=== PATIENT | female | born 2000 | race Caucasian/White ===

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

== ENCOUNTER 2019-10-10 08:00 | Inpatient (IN) | payer OTHER ==
[2019-10-10 08:06] LABS: Glucose,Whole Blood >600 mg/dL (75-99)
[2019-10-10] MEDS ORDERED: SODIUM CHLORIDE 0.9% 1,000 ML IV STA (08:17)
[2019-10-10] MEDS ORDERED: SODIUM CHLORIDE 0.9% 2,000 ML IV STA (08:17)
--- NOTE | 2019-10-10 08:20 | ED ---
General Adult HPI <Dakotah Quevedo - Last Filed: 10/10/19 10:11> - General Source: patient, family, RN notes reviewed, old records reviewed Mode of arrival: ambulatory Limitations: no limitations <Leonor Wren - Last Filed: 10/10/19 10:24> - General Chief complaint: Recheck/Abnormal Lab/Rx Stated complaint: possible DKA Time Seen by Provider: 10/10/19 08:09 - History of Present Illness Initial comments: Patient is a 18-year-old female with a history of diabetes who presents emergency department today for concerns for possible DKA. Patient reports that since complaining of some nausea and dry mouth this morning and has had episodes of dry heaves. Patient's meter was reading high at home. She did give herself 15 units of insulin this morning. Patient states that she is never been hospitalized for DKA. She's been a diabetic since 2006. Patient sees an seamer elastic band and [facility]. Patient states that she has not been feeling significantly ill and denies any significant complaints of pain at this time. (Leonor Wren) - Related Data Home Medications Medication Instructions Recorded Confirmed ARIPiprazole [Abilify] 5 mg PO DAILY 10/10/19 10/10/19 FLUoxetine HCL [PROzac] 40 mg PO DAILY 10/10/19 10/10/19 INSULIN ASPART (NovoLOG) [NovoLOG See Protocol SQ ACHS 10/10/19 10/10/19 (formulary)] Insulin Glargine,Hum.rec.anlog 33 unit SQ QAM 10/10/19 10/10/19 [Basaglar Kwikpen U-100] Allergies Allergy/AdvReac Type Severity Reaction Status Date / Time No Known Allergies Allergy Verified 10/10/19 09:07 Review of Systems ROS Other: All systems not noted in ROS Statement are negative. <Dakotah Quevedo - Last Filed: 10/10/19 10:11> ROS Other: All systems not noted in ROS Statement are negative. <Leonor Wren - Last Filed: 10/10/19 10:24> ROS Statement: Those systems with pertinent positive or pertinent negative responses have been documented in the HPI. Past Medical History Past Medical History: Diabetes Mellitus History of Any Multi-Drug Resistant Organisms: None Reported Past Surgical History: Adenoidectomy, Tonsillectomy Past Psychological History: Anxiety, Depression Smoking Status: Current every day smoker, Vaper Past Alcohol Use History: Occasional Past Drug Use History: Marijuana <SienaLeonor - Last Filed: 10/10/19 10:24> General Exam Limitations: no limitations General appearance: alert, in no apparent distress Head exam: Present: atraumatic, normocephalic, normal inspection Eye exam: Present: normal appearance, PERRL, EOMI. Absent: scleral icterus, conjunctival injection, periorbital swelling ENT exam: Present: normal exam, mucous membranes moist, other (dry mouth, acetone on breath) Neck exam: Present: normal inspection. Absent: tenderness, meningismus, lymphadenopathy Respiratory exam: Present: normal lung sounds bilaterally. Absent: respiratory distress, wheezes, rales, rhonchi, stridor Cardiovascular Exam: Present: regular rate, normal rhythm, normal heart sounds. Absent: systolic murmur, diastolic murmur, rubs, gallop, clicks GI/Abdominal exam: Present: soft, normal bowel sounds. Absent: distended, tenderness, guarding, rebound, rigid Extremities exam: Present: normal inspection, full ROM, normal capillary refill. Absent: tenderness, pedal edema, joint swelling, calf tenderness Back exam: Present: normal inspection Neurological exam: Present: alert, oriented X3, CN II-XII intact Psychiatric exam: Present: normal affect, normal mood Skin exam: Present: warm, dry, intact, normal color. Absent: rash <SienaLeonor - Last Filed: 10/10/19 10:24> - General Exam Comments Initial Comments: Dehydrated 18-year-old female. (SienaLeonor) Course Vital Signs 10/10/19 08:01 Temperature 98.2 F Pulse Rate 130 H Respiratory 18 Rate Blood Pressure 137/89 O2 Sat by Pulse 99 Oximetry EKG Findings - EKG Comments: EKG Findings:: EKG performed at 8:51 AM shows a sinus rhythm normal EKG. Ventricular rate of 86 bpm.. Animals 15 ms. QS duration 76 most seconds. QT QTc is 360/4:30 milliseconds. <Leonor Wren - Last Filed: 10/10/19 10:24> Medical Decision Making - Lab Data Result diagrams: 10/10/19 08:22 10/10/19 08:22 <Dakotah Quevedo - Last Filed: 10/10/19 10:11> - Lab Data Result diagrams: 10/10/19 08:22 10/10/19 08:22 <Leonor Wren - Last Filed: 10/10/19 10:24> - Medical Decision Making I agree with PAs findings. This includes diagnostic interpretation and treatment plan. Patient reevaluated and resting comfortably in bed. Case was discussed in detail with Dr. finney, who will admit covering for hospital call. She does request ICU care. Case also discussed with Dr. Armando Haile who will consult for critical care. Patient is updated. (Daktoah Quevedo) 18-year-old female with history of diabetes presents emergency room today for concerns for DKA. She had some episodes of dry heaving her blood sugars greater than 600 today. She denies any other significant complaints. Patient is given a 2 L bolus and her glucometer read high on triage. She is acetone on her breath. No significant abdominal tenderness or other complaints. Patient's labs do show signs of DKA with positive acetone. CO2 of 11. Anion gap of 29. Her blood sugar was 638. She is given insulin bolus and insulin drip. Patient case was discussed with Dr. Quevedo and discussed the case with Dr. nicolasa mariscal. Patient will be admitted to the ICU for her glucose management. (Leonor Wren) - Lab Data Lab Results 10/10/19 10/10/19 10/10/19 Range/Units 08:05 08:22 08:22 WBC 16.3 H (4.0-11.0) k/uL RBC 5.31 (3.80-5.40) m/uL Hgb 16.4 H (11.4-16.0) gm/dL Hct 51.4 H (34.0-46.0) % MCV 96.7 (80.0-100.0) fL MCH 30.8 (25.0-35.0) pg MCHC 31.9 (31.0-37.0) g/dL RDW 12.7 (11.5-15.5) % Plt Count 370 (150-450) k/uL Neutrophils % 67 % Lymphocytes % 23 % Monocytes % 5 % Eosinophils % 1 % Basophils % 1 % Neutrophils # 11.0 H (1.3-7.7) k/uL Lymphocytes # 3.8 (1.0-4.8) k/uL Monocytes # 0.9 (0-1.0) k/uL Eosinophils # 0.1 (0-0.7) k/uL Basophils # 0.1 (0-0.2) k/uL PT 9.5 (9.0-12.0) sec INR 0.9 (<1.2) APTT 20.2 L (22.0-30.0) sec VBG pH (7.31-7.41) VBG pCO2 (37-51) mmHg VBG HCO3 (24-28) mmol/L Sodium (137-145) mmol/L Potassium (3.5-5.1) mmol/L Chloride (98-107) mmol/L Carbon Dioxide (22-30) mmol/L Anion Gap mmol/L BUN (7-17) mg/dL Creatinine (0.52-1.04) mg/dL Est GFR (CKD-EPI)AfAm (>60 ml/min/1.73 sqM) Est GFR (CKD-EPI)NonAf (>60 ml/min/1.73 sqM) Glucose (74-99) mg/dL POC Glucose (mg/dL) >600 H (75-99) mg/dL POC Glu Clinical Dermatologist ID Duncan Weir Plasma Lactic Acid Candido (0.7-2.0) mmol/L Calcium (8.4-10.2) mg/dL Total Bilirubin (0.2-1.3) mg/dL AST (14-36) U/L ALT (4-34) U/L Alkaline Phosphatase (38-126) U/L Total Protein (6.3-8.2) g/dL Albumin (3.5-5.0) g/dL Amylase (30-110) U/L Lipase (23-300) U/L Urine Color Urine Appearance (Clear) Urine pH (5.0-8.0) Ur Specific Williams (1.001-1.035) Urine Protein (Negative) Urine Glucose (UA) (Negative) Urine Ketones (Negative) Urine Blood (Negative) Urine Nitrite (Negative) Urine Bilirubin (Negative) Urine Urobilinogen (<2.0) mg/dL Ur Leukocyte Esterase (Negative) Urine WBC (0-5) /hpf Ur Squamous Epith Cells (0-4) /hpf Urine Bacteria (None) /hpf Urine Mucus (None) /hpf Urine HCG, Qual (Not Detectd) Acetone, Qual (Negative) 10/10/19 10/10/19 10/10/19 Range/Units 08:22 08:22 08:22 WBC (4.0-11.0) k/uL RBC (3.80-5.40) m/uL Hgb (11.4-16.0) gm/dL Hct (34.0-46.0) % MCV (80.0-100.0) fL MCH (25.0-35.0) pg MCHC (31.0-37.0) g/dL RDW (11.5-15.5) % Plt Count (150-450) k/uL Neutrophils % % Lymphocytes % % Monocytes % % Eosinophils % % Basophils % % Neutrophils # (1.3-7.7) k/uL Lymphocytes # (1.0-4.8) k/uL Monocytes # (0-1.0) k/uL Eosinophils # (0-0.7) k/uL Basophils # (0-0.2) k/uL PT (9.0-12.0) sec INR (<1.2) APTT (22.0-30.0) sec VBG pH (7.31-7.41) VBG pCO2 (37-51) mmHg VBG HCO3 (24-28) mmol/L Sodium 133 L (137-145) mmol/L Potassium 5.1 (3.5-5.1) mmol/L Chloride 93 L (98-107) mmol/L Carbon Dioxide 11 L (22-30) mmol/L Anion Gap 29 mmol/L BUN 17 (7-17) mg/dL Creatinine 0.70 (0.52-1.04) mg/dL Est GFR (CKD-EPI)AfAm >90 (>60 ml/min/1.73 sqM) Est GFR (CKD-EPI)NonAf >90 (>60 ml/min/1.73 sqM) Glucose 632 H* (74-99) mg/dL POC Glucose (mg/dL) (75-99) mg/dL POC Glu Clinical Dermatologist ID Plasma Lactic Acid Candido (0.7-2.0) mmol/L Calcium 10.6 H (8.4-10.2) mg/dL Total Bilirubin 1.0 (0.2-1.3) mg/dL AST 28 (14-36) U/L ALT 16 (4-34) U/L Alkaline Phosphatase 208 H (38-126) U/L Total Protein 8.0 (6.3-8.2) g/dL Albumin 5.1 H (3.5-5.0) g/dL Amylase 87 (30-110) U/L Lipase 367 H (23-300) U/L Urine Color Colorless Urine Appearance Clear (Clear) Urine pH 5.0 (5.0-8.0) Ur Specific Williams 1.032 (1.001-1.035) Urine Protein Negative (Negative) Urine Glucose (UA) 4+ H (Negative) Urine Ketones 4+ H (Negative) Urine Blood Negative (Negative) Urine Nitrite Negative (Negative) Urine Bilirubin Negative (Negative) Urine Urobilinogen <2.0 (<2.0) mg/dL Ur Leukocyte Esterase Trace H (Negative) Urine WBC 2 (0-5) /hpf Ur Squamous Epith Cells 2 (0-4) /hpf Urine Bacteria Occasional H (None) /hpf Urine Mucus Rare H (None) /hpf Urine HCG, Qual Not Detected (Not Detectd) Acetone, Qual Positive (Negative) 10/10/19 10/10/19 10/10/19 Range/Units 08:22 08:41 09:36 WBC (4.0-11.0) k/uL RBC (3.80-5.40) m/uL Hgb (11.4-16.0) gm/dL Hct (34.0-46.0) % MCV (80.0-100.0) fL MCH (25.0-35.0) pg MCHC (31.0-37.0) g/dL RDW (11.5-15.5) % Plt Count (150-450) k/uL Neutrophils % % Lymphocytes % % Monocytes % % Eosinophils % % Basophils % % Neutrophils # (1.3-7.7) k/uL Lymphocytes # (1.0-4.8) k/uL Monocytes # (0-1.0) k/uL Eosinophils # (0-0.7) k/uL Basophils # (0-0.2) k/uL PT (9.0-12.0) sec INR (<1.2) APTT (22.0-30.0) sec VBG pH 7.33 (7.31-7.41) VBG pCO2 25 L (37-51) mmHg VBG HCO3 13 L (24-28) mmol/L Sodium (137-145) mmol/L Potassium (3.5-5.1) mmol/L Chloride (98-107) mmol/L Carbon Dioxide (22-30) mmol/L Anion Gap mmol/L BUN (7-17) mg/dL Creatinine (0.52-1.04) mg/dL Est GFR (CKD-EPI)AfAm (>60 ml/min/1.73 sqM) Est GFR (CKD-EPI)NonAf (>60 ml/min/1.73 sqM) Glucose (74-99) mg/dL POC Glucose (mg/dL) 412 H (75-99) mg/dL POC Glu Clinical Dermatologist MATHIEU HennaDuarte Plasma Lactic Acid Candido 1.6 (0.7-2.0) mmol/L Calcium (8.4-10.2) mg/dL Total Bilirubin (0.2-1.3) mg/dL AST (14-36) U/L ALT (4-34) U/L Alkaline Phosphatase (38-126) U/L Total Protein (6.3-8.2) g/dL Albumin (3.5-5.0) g/dL Amylase (30-110) U/L Lipase (23-300) U/L Urine Color Urine Appearance (Clear) Urine pH (5.0-8.0) Ur Specific Williams (1.001-1.035) Urine Protein (Negative) Urine Glucose (UA) (Negative) Urine Ketones (Negative) Urine Blood (Negative) Urine Nitrite (Negative) Urine Bilirubin (Negative) Urine Urobilinogen (<2.0) mg/dL Ur Leukocyte Esterase (Negative) Urine WBC (0-5) /hpf Ur Squamous Epith Cells (0-4) /hpf Urine Bacteria (None) /hpf Urine Mucus (None) /hpf Urine HCG, Qual (Not Detectd) Acetone, Qual (Negative) Critical Care Time Critical Care Time: Yes Total Critical Care Time: 35 <Leonor Wren - Last Filed: 10/10/19 10:24> Disposition <Dakotah Quevedo - Last Filed: 10/10/19 10:11> Is patient prescribed a controlled substance at d/c from ED?: No Time of Disposition: 10:24 <Leonor Wren - Last Filed: 10/10/19 10:24> Clinical Impression: DKA (diabetic ketoacidoses) Disposition: ADMITTED IP TO THIS HOSP Condition: Stable Referrals: Cyndee Hernandez MD [Primary Care Provider] - 1-2 days
[2019-10-10 08:32] LABS: Basophils # (A) 0.1 k/uL (0-0.2); Basophils % (A) 1 %; Eosinophils # (A) 0.1 k/uL (0-0.7); Eosinophils % (A) 1 %; HCT 51.4 % (34.0-46.0); HGB 16.4 gm/dL (11.4-16.0); Lymphocytes # (A) 3.8 k/uL (1.0-4.8); Lymphocytes % (A) 23 %; MCH 30.8 pg (25.0-35.0); MCHC 31.9 g/dL (31.0-37.0); MCV 96.7 fL (80.0-100.0); Mean Platelet Volume 7.7; Monocytes # (A) 0.9 k/uL (0-1.0); Monocytes % (A) 5 %; Neutrophils % (A) 67 %; Platelet Count 370 k/uL (150-450); RBC 5.31 m/uL (3.80-5.40); RDW 12.7 % (11.5-15.5); WBC 16.3 k/uL (4.0-11.0)
[2019-10-10 08:41] LABS: Appearance,Urine Clear (Clear); Bacteria,Urine Occasional /hpf; Bilirubin,Urine Negative (Negative); Blood,Urine Negative (Negative); Color,Urine Colorless; Glucose,Urine (UA) 4+ (Negative); Leukocyte Esterase,Urine Trace (Negative); Mucus,Urine Rare /hpf; Nitrite,Urine Negative (Negative); Protein,Urine Negative (Negative); Specific Gravity,Urine 1.032 (1.001-1.035); Squamous Epithelial Cell,Urine 2 /hpf (0-4); Urobilinogen,Urine <2.0 mg/dL (<2.0); WBC,Urine 2 /hpf (0-5)
[2019-10-10 08:52] LABS: VBG PH 7.33 (7.31-7.41)
[2019-10-10 08:56] LABS: ALT 16 U/L (4-34); AST 28 U/L (14-36); African American GFR (CKD) >90 (>60 ml/min/1.73 sqM); Albumin 5.1 g/dL (3.5-5.0); Alkaline Phosphatase 208 U/L (38-126); Amylase 87 U/L (30-110); Anion Gap 29 mmol/L; Blood Urea Nitrogen 17 mg/dL (7-17); Calcium 10.6 mg/dL (8.4-10.2); Carbon Dioxide 11 mmol/L (22-30); Chloride 93 mmol/L (98-107); INR 0.9 (<1.2); Non-African American GFR(CKD) >90 (>60 ml/min/1.73 sqM); Partial Thromboplastin Time 20.2 sec (22.0-30.0); Prothrombin Time 9.5 sec (9.0-12.0); Sodium 133 mmol/L (137-145)
[2019-10-10 09:13] LABS: Glucose 632 mg/dL (74-99); Potassium 5.1 mmol/L (3.5-5.1)
[2019-10-10] MEDS ORDERED: INSULIN REGULAR BOLUS (FROM DRIP BAG) IV ONE (09:20)
[2019-10-10] MEDS ORDERED: INSULIN REGULAR 100 UNIT in SODIUM CHLORIDE 0.9% 100 ML IV SCH (09:30)
[2019-10-10 09:37] LABS: Glucose,Whole Blood 412 mg/dL (75-99)
[2019-10-10 09:43] LABS: Ketones,Urine 4+ (Negative)
[2019-10-10] MEDS: SODIUM CHLORIDE 0.9% 1,000 ML IV SCH ×3 (09:46→18:05)
[2019-10-10 10:45] LABS: Glucose,Whole Blood 252 mg/dL (75-99)
[2019-10-10] MEDS: D5-0.45% NACL WITH KCL 20MEQ/L 1,000 ML IV SCH ×2 (11:00→17:25)
[2019-10-10 11:20] LABS: Glucose,Whole Blood 279 mg/dL (75-99)
[2019-10-10 12:12] LABS: Glucose,Whole Blood 237 mg/dL (75-99)
[2019-10-10 13:00] LABS: Glucose,Whole Blood 208 mg/dL (75-99)
[2019-10-10] MEDS ORDERED: NICOTINE POLACRILEX 2 MG GUM BUCCAL PRN (13:36)
[2019-10-10] MEDS ORDERED: ACETAMINOPHEN TAB 325 MG TAB PO PRN (13:36)
[2019-10-10] MEDS ORDERED: KETOROLAC 15 MG/ML 1 ML VIAL IVP PRN (13:36)
[2019-10-10] MEDS ORDERED: MELATONIN 3 MG TABLET PO PRN (13:36)
[2019-10-10] MEDS ORDERED: NALOXONE 0.4 MG/ML 1 ML VIAL IV PRN (13:36)
[2019-10-10] MEDS ORDERED: ONDANSETRON 4 MG/2 ML VIAL IVP PRN (13:36)
--- NOTE | 2019-10-10 13:41 | P.HPIM ---
History of Present Illness H&P Date: 10/10/19 Chief Complaint: high blood sugar Patient is a 18-year-old female with type 1 diabetes diagnosed at age 5 currently on long acting and carb counting use short acting insulin and tobacco abuse who presented to the hospital secondary to elevated blood sugars and nausea. On arrival to the ER she was found be tachycardic with heart rate of 130. Initial laboratory analysis showed a white blood cell count of 16.3, VBG with pH of 7.33, sodium 133, chloride 93, carbon dioxide 11, glucose 632, calcium 10.6, alkaline phosphatase 208, albumin 5.1, lipase 367, urinalysis showed 4+ glucose and 4+ ketones. Acetone was positive. She is given 2 L of IV fluid in the emergency department. She is given a 6 unit IV insulin bolus and started on insulin drip. Arrangements are made for admission to the ICU. Patient seen and examined at bedside. Her father is present. She reports that she is unsure why her blood sugars are so high. She initially states she might have missed her long-acting insulin last night, but then states she is sure she took this. Apparently she was on a pump in the past but ran out of pump supplies quite some time ago and is now doing basal Klar and carb counting with NovoLog. She reports that her last hemoglobin A1c was about 10 and this was done 1-2 months ago. She states that her daily sugars have been in the high 200s. She states that this morning she woke up just not feeling well. She felt nauseous and some chest heaviness which is typical for her when her sugars are high. She also felt very weak and fatigued. She went to use her meter and it wasn't working. She contacted her father who is an ICU nurse instructed her to go to the hospital. She reports a 20 pound weight loss over the last several months without trying. She denies any previous hospitalizations for DKA. Her and her father both report that she has been drinking excessive amounts for longer than one day. They also report that she has had increased urination. Her father states that she was drinking lots of juice yesterday. We discussed that juices not a good liquid intake when her sugars are already running high as it is typically high in sugar. She denies any recent illnesses such as cough, cold, fever, flu, diarrhea, or abdominal pain. She states she was in her normal state of health until yesterday. Dr. Thompson out of [place] on [address] Hernandez Review of Systems Pertinent positives and negatives as discussed in HPI, a complete review of systems was performed and all other systems are negative. Past Medical History Past Medical History: Diabetes Mellitus Additional Past Medical History / Comment(s): IDDM type 1/normally pt uses insulin pump but ran out of supplies-supplies will be arriving to her soon-for now pt is using subq insulin injections, past HPV History of Any Multi-Drug Resistant Organisms: None Reported Past Surgical History: Adenoidectomy, Tonsillectomy Past Anesthesia/Blood Transfusion Reactions: No Reported Reaction Smoking Status: Current every day smoker (<1/4 PPD), Vaper Past Alcohol Use History: Occasional Past Drug Use History: Marijuana - Past Family History Mother Additional Family Medical History / Comment(s): migraines Father Family Medical History: Hypertension Additional Family Medical History / Comment(s): Father is healthy Medications and Allergies Home Medications Medication Instructions Recorded Confirmed Type ARIPiprazole [Abilify] 5 mg PO DAILY 10/10/19 10/10/19 History FLUoxetine HCL [PROzac] 40 mg PO DAILY 10/10/19 10/10/19 History INSULIN ASPART (NovoLOG) [NovoLOG See Protocol SQ ACHS 10/10/19 10/10/19 History (formulary)] Insulin Glargine,Hum.rec.anlog 33 unit SQ QAM 10/10/19 10/10/19 History [Basaglar Kwikpen U-100] Allergies Allergy/AdvReac Type Severity Reaction Status Date / Time No Known Allergies Allergy Verified 10/10/19 09:07 Physical Exam Osteopathic Statement: *. No significant issues noted on an osteopathic structural exam other than those noted in the History and Physical/Consult. Vitals: Vital Signs Temp Pulse Resp BP Pulse Ox 10/10/19 11:00 98.3 F 96 18 112/73 98 10/10/19 10:21 102 H 19 131/81 100 10/10/19 10:18 90 L 10/10/19 08:01 98.2 F 130 H 18 137/89 99 Intake and Output 10/09/19 10/10/19 10/10/19 22:59 06:59 14:59 Intake Total 160.009 Balance 160.009 Intake: Intake, IV Titration 160.009 Amount D5-0.45% NaCl with KCl 150 20Meq/l 1,000 ml @ 150 mls/hr IV .[id number] [facility] Rx# :[id number] Insulin Regular 100 unit 10.009 In Sodium Chloride 0.9% 100 ml @ 0.1 UNITS/KG/HR 6.066 mls/hr IV .[id number] [facility] Rx#:[id number] Other: Weight 60.056 kg General: Ill-appearing, moderate distress, appears at stated age Derm: warm, dry, multiple tattoos, nasal piercing, multiple ear piercings Head: atraumatic, normocephalic, symmetric Eyes: EOMI, no lid lag, anicteric sclera, pupils equal round reactive to light ENT: Nose and ears atraumatic, no thrush, no pharyngeal erythema Neck: No thyromegaly, no cervical lymphadenopathy, trachea midline, supple Mouth: no lip lesion, mucus membranes dry Cardiovascular: S1S2 tachycardic, no murmur, positive posterior tibial pulse bilateral, no edema, capillary refill less than 2 seconds Lungs: clear to ascultation bilateral, no ronchi, no rales, no wheeze, no a ccessory muscle use Abdominal: soft, nontender to palpation, no guarding, no appreciable organomega ly, normal bowel sounds Ext: no gross muscle atrophy, muscle strength muscle strength 5 out of 5 in all 4 extremities, no contractures Neuro: CN II-XI grossly intact, light touch intact all 4 extremities, finger to nose within normal limits, Psych: Alert, oriented, appropriate affect Results CBC & Chem 7: 10/10/19 08:22 10/10/19 08:22 Labs: Abnormal Lab Results - Last 24 Hours (Table) 10/10/19 10/10/19 10/10/19 Range/Units 08:05 08:22 08:22 WBC 16.3 H (4.0-11.0) k/uL Hgb 16.4 H (11.4-16.0) gm/dL Hct 51.4 H (34.0-46.0) % Neutrophils # 11.0 H (1.3-7.7) k/uL APTT 20.2 L (22.0-30.0) sec VBG pCO2 (37-51) mmHg VBG HCO3 (24-28) mmol/L Sodium (137-145) mmol/L Chloride (98-107) mmol/L Carbon Dioxide (22-30) mmol/L Glucose (74-99) mg/dL POC Glucose (mg/dL) >600 H (75-99) mg/dL Calcium (8.4-10.2) mg/dL Alkaline Phosphatase (38-126) U/L Albumin (3.5-5.0) g/dL Lipase (23-300) U/L Urine Glucose (UA) (Negative) Urine Ketones (Negative) Ur Leukocyte Esterase (Negative) Urine Bacteria (None) /hpf Urine Mucus (None) /hpf 10/10/19 10/10/19 10/10/19 Range/Units 08:22 08:22 08:41 WBC (4.0-11.0) k/uL Hgb (11.4-16.0) gm/dL Hct (34.0-46.0) % Neutrophils # (1.3-7.7) k/uL APTT (22.0-30.0) sec VBG pCO2 25 L (37-51) mmHg VBG HCO3 13 L (24-28) mmol/L Sodium 133 L (137-145) mmol/L Chloride 93 L (98-107) mmol/L Carbon Dioxide 11 L (22-30) mmol/L Glucose 632 H* (74-99) mg/dL POC Glucose (mg/dL) (75-99) mg/dL Calcium 10.6 H (8.4-10.2) mg/dL Alkaline Phosphatase 208 H (38-126) U/L Albumin 5.1 H (3.5-5.0) g/dL Lipase 367 H (23-300) U/L Urine Glucose (UA) 4+ H (Negative) Urine Ketones 4+ H (Negative) Ur Leukocyte Esterase Trace H (Negative) Urine Bacteria Occasional H (None) /hpf Urine Mucus Rare H (None) /hpf 10/10/19 10/10/19 10/10/19 Range/Units 09:36 10:43 11:18 WBC (4.0-11.0) k/uL Hgb (11.4-16.0) gm/dL Hct (34.0-46.0) % Neutrophils # (1.3-7.7) k/uL APTT (22.0-30.0) sec VBG pCO2 (37-51) mmHg VBG HCO3 (24-28) mmol/L Sodium (137-145) mmol/L Chloride (98-107) mmol/L Carbon Dioxide (22-30) mmol/L Glucose (74-99) mg/dL POC Glucose (mg/dL) 412 H 252 H 279 H (75-99) mg/dL Calcium (8.4-10.2) mg/dL Alkaline Phosphatase (38-126) U/L Albumin (3.5-5.0) g/dL Lipase (23-300) U/L Urine Glucose (UA) (Negative) Urine Ketones (Negative) Ur Leukocyte Esterase (Negative) Urine Bacteria (None) /hpf Urine Mucus (None) /hpf Thrombosis Risk Factor Assmnt - DVT/VTE Prophylaxis DVT/VTE Prophylaxis: Low risk, early ambulation encouraged - Choose All That Apply Any of the Below Risk Factors Present?: No Other Risk Factors: No Other congenital or acquired thrombophilia - If yes, enter type in comment: No Thrombosis Risk Factor Assessment Level: Very Low Risk Assessment and Plan Assessment: Diabetic ketoacidosis -Continue with insulin drip, every hour Accu-Cheks, fluids have been transitioned appropriately to D5 half-normal saline with 20 MEQ of potassium -Check hemoglobin A1c -informatics educator to meet with patient -Plan on transitioning back to basaglar and SS Humalog -Patient currently awaiting pump supplies -Outpatient follow-up with endocrinology Tobacco abuse -Cessation -Nicotine replacement with gum Anxiety -Continue with Prozac and Abilify Unintentional weight loss -Suspect secondary to uncontrolled sugars at home -Outpatient follow-up with endocrinology -Dietitian consult Pseudohyponatremia - treatment of hyperglycemia - Follow lytes The patient is admitted with an anticipated greater than 2 midnight stay for evaluation of DKA. Surrogate decision-maker: Father CODE STATUS:Full by default DVT prophylaxis: SCDs Anticipated discharge date: 2-[address]: home. A total of 65 minutes was spent on this complex H and P, including coordination of care
[2019-10-10 13:48] LABS: African American GFR (CKD) >90 (>60 ml/min/1.73 sqM); Anion Gap 8 mmol/L; Blood Urea Nitrogen 15 mg/dL (7-17); Carbon Dioxide 26 mmol/L (22-30); Chloride 103 mmol/L (98-107); Glucose 228 mg/dL (74-99); Non-African American GFR(CKD) >90 (>60 ml/min/1.73 sqM); Potassium 4.7 mmol/L (3.5-5.1); Sodium 137 mmol/L (137-145)
[2019-10-10 13:56] LABS: Glucose,Whole Blood 276 mg/dL (75-99)
[2019-10-10 14:05] VITALS: BMI 22.0
--- NOTE | 2019-10-10 14:46 | P.CNPUL ---
History of Present Illness Consult date: 10/10/19 Chief complaint: DKA History of present illness: This is a 18-year-old female patient, diabetic, who came into the ED for hypoglycemia, nausea, dry mouth, dehydration and episodes of dry heaves. Her blood sugar was quite elevated at home. She did give herself 15 units of insulin this morning. She is currently hospitalized for DKA. The patient has a white cell count of 16.3. Hemoglobin is at 16.4. Correlation profile is within normal. The blood gases showed a pH of 7.33 with a pCO2 of 25 and this was a venous sample. The patient's blood sugar was 632. The patient had a anion gap metabolic acidosis with a gap of 29 and a serum bicarb of 11. Currently is on insulin drip for blood sugar control. She is transferred to the intensive care unit. The UA is positive for glucose and ketones. Serum acetone is also positive. Liver function tests are within normal with some mild elevation of the alkaline phosphatase at 208. Total protein is at 5.1. Lipase is at 367. She is afebrile. The EKG is in normal sinus rhythm. The patient uses glargine insulin 33 units in the morning along with a scale. Currently is on insulin drip and the patient will be switched to a D5 half-normal saline at the rate of 150 mL an hour once the blood sugar is below 250. She was given 2 L bolus in the emergency department. Review of Systems Constitutional: Reports fatigue, Reports lethargy, Reports weakness Eyes: denies as per HPI, denies blurred vision, denies bulging eye, denies decreased vision, denies diplopia, denies discharge, denies dry eye, denies irritation, denies itching, denies pain, denies photophobia, denies loss of peripheral vision, denies loss of vision, denies tunnel vision/blind spots Ears: deny: decreased hearing, ear discharge, earache, tinnitus Ears, nose, mouth and throat: Reports as per HPI Breasts: absent: as per HPI, change in shape, gynecomastia, masses, nipple disc harge, pain, skin changes, swelling Cardiovascular: Reports as per HPI Respiratory: Reports as per HPI Gastrointestinal: Reports as per HPI, Reports nausea, Reports vomiting Genitourinary: Reports as per HPI Menstruation: Reports as per HPI Musculoskeletal: Reports as per HPI Musculoskeletal: absent: ankle pain, ankle stiffness, ankle swelling, as per HPI, elbow pain, elbow stiffness, elbow swelling, foot pain, foot stiffness, foot swelling, hand pain, hand stiffness, hand swelling, hip pain, hip stiffness, hip swelling, knee pain, knee stiffness, knee swelling, shoulder pain, shoulder stiffness, shoulder swelling, wrist pain, wrist stiffness, wrist swelling Integumentary: Reports as per HPI Neurological: Reports as per HPI, Reports weakness Psychiatric: Reports as per HPI Endocrine: Reports high blood sugars, Reports polydipsia Hematologic/Lymphatic: Reports as per HPI Allergic/Immunologic: Reports as per HPI Past Medical History Past Medical History: Diabetes Mellitus History of Any Multi-Drug Resistant Organisms: None Reported Past Surgical History: Adenoidectomy, Tonsillectomy Past Psychological History: Anxiety, Depression Smoking Status: Current every day smoker, Vaper Past Alcohol Use History: Occasional Past Drug Use History: Marijuana - Past Family History Mother Family Medical History: No Reported History Additional Family Medical History / Comment(s): migraines Father Family Medical History: Hypertension Additional Family Medical History / Comment(s): Father is healthy Medications and Allergies Home Medications Medication Instructions Recorded Confirmed Type ARIPiprazole [Abilify] 5 mg PO DAILY 10/10/19 10/10/19 History FLUoxetine HCL [PROzac] 40 mg PO DAILY 10/10/19 10/10/19 History INSULIN ASPART (NovoLOG) [NovoLOG See Protocol SQ ACHS 10/10/19 10/10/19 History (formulary)] Insulin Glargine,Hum.rec.anlog 33 unit SQ QAM 10/10/19 10/10/19 History [Basaglar Kwikpen U-100] Allergies Allergy/AdvReac Type Severity Reaction Status Date / Time No Known Allergies Allergy Verified 10/10/19 09:07 Physical Exam Vitals: Vital Signs Temp Pulse Resp BP Pulse Ox 10/10/19 10:21 102 H 19 131/81 100 10/10/19 08:01 98.2 F 130 H 18 137/89 99 Intake and Output 10/09/19 10/10/19 10/10/19 22:59 06:59 14:59 Other: Weight 60.056 kg The patient appeared well nourished and normally developed. Vital signs as documented. Head exam is unremarkable. No scleral icterus or corneal arcus noted. Neck is without jugular venous distension, thyromegaly, or carotid bruits. Carotid upstrokes are brisk bilaterally. Lungs are clear to auscultation and percussion. Cardiac exam reveals the PMI to be normally sized and situated. Rhythm is regular. First and second heart sounds normal. No murmurs, rubs or gallops. Abdominal exam reveals normal bowel sounds, no masses, no organomegaly and no aortic enlargement. Extremities are nonedematous and both femoral and pedal pulses are normal.Examination of the skin revealed no evidence of significant rashes, suspicious appearing nevi or other concerning lesions.Neurologically, the patient is awake and alert and the patient does not have any focal neurological deficit. Cranial nerves are essentially intact. Results - Laboratory Findings CBC and BMP: 10/10/19 08:22 10/10/19 13:15 PT/INR, D-dimer PT 9.5 sec (9.0-12.0) 10/10/19 08:22 INR 0.9 (<1.2) 10/10/19 08:22 Abnormal lab findings: Abnormal Labs 10/10/19 10/10/19 10/10/19 08:05 08:22 08:22 WBC 16.3 H Hgb 16.4 H Hct 51.4 H Neutrophils # 11.0 H APTT 20.2 L VBG pCO2 VBG HCO3 Sodium Chloride Carbon Dioxide Glucose POC Glucose (mg/dL) >600 H Calcium Alkaline Phosphatase Albumin Lipase Urine Glucose (UA) Urine Ketones Ur Leukocyte Esterase Urine Bacteria Urine Mucus 10/10/19 10/10/19 10/10/19 08:22 08:22 08:41 WBC Hgb Hct Neutrophils # APTT VBG pCO2 25 L VBG HCO3 13 L Sodium 133 L Chloride 93 L Carbon Dioxide 11 L Glucose 632 H* POC Glucose (mg/dL) Calcium 10.6 H Alkaline Phosphatase 208 H Albumin 5.1 H Lipase 367 H Urine Glucose (UA) 4+ H Urine Ketones 4+ H Ur Leukocyte Esterase Trace H Urine Bacteria Occasional H Urine Mucus Rare H 10/10/19 09:36 WBC Hgb Hct Neutrophils # APTT VBG pCO2 VBG HCO3 Sodium Chloride Carbon Dioxide Glucose POC Glucose (mg/dL) 412 H Calcium Alkaline Phosphatase Albumin Lipase Urine Glucose (UA) Urine Ketones Ur Leukocyte Esterase Urine Bacteria Urine Mucus - Diagnostic Findings Chest x-ray: image reviewed Assessment and Plan Plan: 1 DKA with anion gap metabolic acidosis. 2 leukocytosis, likely reactive 3 history of type 1 diabetes mellitus maintained on glargine insulin outpatient basis 4 depression, maintained on Abilify and Prozac Plan Treat this patient with a DKA protocol with insulin drip IV fluids resuscitation and currently the patient was switched to D5 half-normal saline today to 150 mL an hour along with potassium supplements Monitor electrolytes Monitor anion gap Monitor serum bicarb Keep nothing by mouth for now We'll continue to follow
[2019-10-10 15:11] LABS: Glucose,Whole Blood 290 mg/dL (75-99)
[2019-10-10 15:51] LABS: Glucose,Whole Blood 257 mg/dL (75-99)
[2019-10-10 16:32] LABS: Glucose,Whole Blood 271 mg/dL (75-99)
[2019-10-10 16:54] LABS: African American GFR (CKD) >90 (>60 ml/min/1.73 sqM); Anion Gap 5 mmol/L; Blood Urea Nitrogen 15 mg/dL (7-17); Carbon Dioxide 24 mmol/L (22-30); Chloride 104 mmol/L (98-107); Glucose 268 mg/dL (74-99); Non-African American GFR(CKD) >90 (>60 ml/min/1.73 sqM); Phosphorus 3.5 mg/dL (2.5-4.5); Potassium 4.2 mmol/L (3.5-5.1); Sodium 133 mmol/L (137-145)
[2019-10-10 17:24] LABS: Glucose,Whole Blood 265 mg/dL (75-99)
[2019-10-10] MEDS ORDERED: SODIUM CHLORIDE 0.45% 1,000 ML IV SCH (17:45)
[2019-10-10 18:00] LABS: Glucose,Whole Blood 239 mg/dL (75-99)
[2019-10-10] MEDS ORDERED: INSULIN DETEMIR (LEVEMIR) 100 UNIT/ML SYR SQ ONE (18:00)
[2019-10-10] MEDS: INSULIN ASPART (NovoLOG) 100 UNIT/ML VIAL SQ SCH ×2 (18:04→21:53)
[2019-10-10 21:47] LABS: Glucose,Whole Blood 212 mg/dL (75-99)
[2019-10-11 01:56] LABS: Glucose,Whole Blood 112 mg/dL (75-99)
[2019-10-11] MEDS: INSULIN ASPART (NovoLOG) 100 UNIT/ML VIAL SQ SCH ×2 (02:04→06:41)
[2019-10-11 05:05] LABS: HCT 42.5 % (34.0-46.0); HGB 13.7 gm/dL (11.4-16.0); MCH 30.2 pg (25.0-35.0); MCHC 32.1 g/dL (31.0-37.0); MCV 93.9 fL (80.0-100.0); Mean Platelet Volume 8.2; Platelet Count 279 k/uL (150-450); RBC 4.53 m/uL (3.80-5.40); RDW 12.9 % (11.5-15.5); WBC 13.5 k/uL (4.0-11.0)
[2019-10-11 05:14] LABS: ALT 18 U/L (4-34); AST 53 U/L (14-36); African American GFR (CKD) >90 (>60 ml/min/1.73 sqM); Albumin 3.6 g/dL (3.5-5.0); Alkaline Phosphatase 137 U/L (38-126); Anion Gap 10 mmol/L; Blood Urea Nitrogen 16 mg/dL (7-17); Calcium 8.8 mg/dL (8.4-10.2); Carbon Dioxide 22 mmol/L (22-30); Chloride 102 mmol/L (98-107); Glucose 293 mg/dL (74-99); Magnesium 1.8 mg/dL (1.6-2.3); Non-African American GFR(CKD) >90 (>60 ml/min/1.73 sqM); Sodium 134 mmol/L (137-145); Total Bilirubin 0.3 mg/dL (0.2-1.3); Total Protein 5.8 g/dL (6.3-8.2)
[2019-10-11 06:39] LABS: Glucose,Whole Blood 303 mg/dL (75-99)
[2019-10-11] MEDS: SODIUM CHLORIDE 0.9% 1,000 ML IV SCH (06:42)
[2019-10-11] MEDS ORDERED: INSULIN ASPART (NovoLOG) 100 UNIT/ML VIAL SQ SCH (07:30)
[2019-10-11] MEDS ORDERED: INSULIN DETEMIR (LEVEMIR) 100 UNIT/ML SYR SQ SCH (07:45)
[2019-10-11] MEDS ORDERED: INSULIN ASPART (NovoLOG) 100 UNIT/ML VIAL SQ ONE (07:46)
[2019-10-11 07:48] LABS: Glucose,Whole Blood 344 mg/dL (75-99)
[2019-10-11 08:24] VITALS: BP 105/68; RESP 14; TEMP 98.8
[2019-10-11 08:34] VITALS: PULSE 91
[2019-10-11] MEDS ORDERED: FLUoxetine HCL 20 MG CAP PO SCH (09:00)
[2019-10-11] MEDS ORDERED: ARIPiprazole 5 MG TAB PO SCH (09:00)
[2019-10-11 10:11] LABS: Glucose,Whole Blood 222 mg/dL (75-99)
--- NOTE | 2019-10-11 10:24 | P.DS ---
Providers Date of admission: 10/10/19 10:12 Expected date of discharge: 10/11/19 Attending physician: Beckie Montes DO Consults: 10/10/19 10:24 Consult Physician Stat Consulting Provider: Val Roberts Consult Reason/Comments: dka,icu mgmt Do you want consulting provider notified?: Yes Primary care physician: Cyndee Hernandez [facility] Hospital Course: Discharge Diagnosis: Diabetic ketoacidosis Pseudohyponatremia Tobacco abuse Leukocytosis, reactive Unintentional weight loss Anxiety Hospital Course: Patient is a 18-year-old female with type 1 diabetes diagnosed at age 5 currently on long acting and carb counting with short acting insulin who presented to the hospital secondary to elevated blood sugars and nausea. On arrival to the ER she was found be tachycardic with heart rate of 130. Initial laboratory analysis showed a white blood cell count of 16.3, VBG with pH of 7.33, sodium 133, chloride 93, carbon dioxide 11, glucose 632, calcium 10.6, alkaline phosphatase 208, albumin 5.1, lipase 367, urinalysis showed 4+ glucose and 4+ ketones. Acetone was positive. She was diagnosied with DKA. She was given 2 L of IV fluid , 6 unit IV insulin bolus and started on insulin drip in the emergency department. She was admitted to the ICU. She continued on the insulin gtt until gap closed X 2. She was transitioned to long acting and short acting insulin. Her Blood sugar did spike again on the morning of 10/10 which was quickly corrected with one additional dose of short acting insulin.She was determined stable for discharge home. She will see Dr. Hernandez in 3-5 days and her [facility] in 2 week. She was given information on a continusous meter and her plans prior to hospitlaization was to get restarted on her pump. Patient improved faster than anticipated and was subsequently able to de discharged in less than 2 midnights. Patient seen and examined at bedside.Feeling tired but good, no nuasea, no vomiting, eating well, thrist is decreasing and energy is returing. Vital signs reviewed and stable. General: non toxic, no distress, appears at stated age Derm: warm, dry, multiple tattoos and piercings. Head: atraumatic, normocephalic, symmetric Eyes: EOMI, no lid lag, anicteric sclera Mouth: no lip lesion, mucus membranes moist Cardiovascular: S1S2 reg, no murmur, positive posterior tibial pulse bilateral, Lungs: CTA bilateral, no rhonchi, no rales , no accessory muscle use Abdominal: soft, nontender to palpation, no guarding, no appreciable organomegaly Ext: no gross muscle atrophy, no edema, no contractures Neuro: CN II-XI grossly intact, no focal neuro deficits Psych: Alert, oriented, appropriate affect A total of 35 minutes of time were spent preparing this complex discharge summary. Patient Condition at Discharge: Stable Plan - Discharge Summary Discharge Rx Participant: No New Discharge Prescriptions: Continue Insulin Glargine,Hum.rec.anlog [Basaglar Kwikpen U-100] 33 unit SQ QAM FLUoxetine HCL [PROzac] 40 mg PO DAILY ARIPiprazole [Abilify] 5 mg PO DAILY INSULIN ASPART (NovoLOG) [NovoLOG (formulary)] See Protocol SQ ACHS Discharge Medication List ARIPiprazole [Abilify] 5 mg PO DAILY 10/10/19 [History] FLUoxetine HCL [PROzac] 40 mg PO DAILY 10/10/19 [History] INSULIN ASPART (NovoLOG) [NovoLOG (formulary)] See Protocol SQ ACHS 10/10/19 [History] Insulin Glargine,Hum.rec.anlog [Basaglar Kwikpen U-100] 33 unit SQ QAM 10/10/19 [History] Follow up Appointment(s)/Referral(s): Cyndee Hernandez MD [Primary Care Provider] - 1-2 days Activity/Diet/Wound Care/Special Instructions: Activity: As tolerated Diet: Carb consistent Special Instructions: [employer] can be reached via phone at [phone] and fax [phone]. [place] ext [phone] can help if needed. Follow-up with Dr. Thompson in 2 weeks Discharge Disposition: HOME SELF-CARE
--- NOTE | 2019-10-11 11:34 | P.PN ---
Subjective Progress Note Date: 10/11/19 10/11/2019 and seeing the patient for a follow-up in the patient is doing well. No specific complaints. DKA resolved and the patient anion gap has closed and the patient was switched to long-acting insulin. No nausea. No vomiting. No abdominal pain. No chest pain. No other significant events overnight. The patient is resting comfortably in bed. She had a breakfast this morning. She is on Levemir insulin 25 units along with a sliding scale coverage. Objective - Vital Signs Vital signs: Vital Signs Temp 98.8 F 10/11/19 08:00 Pulse 91 10/11/19 08:00 Resp 14 10/11/19 08:00 BP 105/68 10/11/19 08:00 Pulse Ox 99 10/11/19 08:00 Intake & Output 10/10/19 10/11/19 10/11/19 18:59 06:59 18:59 Intake Total 8898.427 1116 325 Output Total 900 400 950 Balance 465.234 900 -625 Weight 60.056 kg 61.2 kg Intake: IV 825 225 Sodium Chloride 0.9% 1, 825 225 000 ml @ 75 mls/hr IV . [id number] [facility] Rx#:[id number] Intake, IV Titration 1165.234 75 Amount D5-0.45% NaCl with KCl 1050 20Meq/l 1,000 ml @ 150 mls/hr IV .[id number] [facility] Rx# :[id number] Insulin Regular 100 unit 40.234 In Sodium Chloride 0.9% 100 ml @ 0.1 UNITS/KG/HR 6.066 mls/hr IV .[id number] [facility] Rx#:[id number] Sodium Chloride 0.9% 1, 75 75 000 ml @ 75 mls/hr IV . [id number] [facility] Rx#:[id number] Oral 200 400 100 Output: Urine 900 400 950 - Exam The patient appeared well nourished and normally developed. Vital signs as documented. Head exam is unremarkable. No scleral icterus or corneal arcus noted. Neck is without jugular venous distension, thyromegaly, or carotid bruits. Carotid upstrokes are brisk bilaterally. Lungs are clear to auscultation and percussion. Cardiac exam reveals the PMI to be normally sized and situated. Rhythm is regular. First and second heart sounds normal. No murmurs, rubs or gallops. Abdominal exam reveals normal bowel sounds, no masses, no organomegaly and no aortic enlargement. Extremities are nonedematous and both femoral and pedal pulses are normal.Examination of the skin revealed no evidence of significant rashes, suspicious appearing nevi or other concerning lesions.Neurologically, the patient is awake and alert and the patient does not have any focal neurological deficit. Cranial nerves are essentially intact. - Labs CBC & Chem 7: 10/11/19 04:22 10/11/19 04:22 Labs: Abnormal Lab Results - Last 24 Hours (Table) 10/10/19 10/10/19 10/10/19 Range/Units 12:02 12:59 13:15 WBC (4.0-11.0) k/uL Sodium (137-145) mmol/L Creatinine 0.47 L (0.52-1.04) mg/dL Glucose 228 H (74-99) mg/dL POC Glucose (mg/dL) 237 H 208 H (75-99) mg/dL AST (14-36) U/L Alkaline Phosphatase (38-126) U/L Total Protein (6.3-8.2) g/dL 10/10/19 10/10/19 10/10/19 Range/Units 13:54 15:09 15:49 WBC (4.0-11.0) k/uL Sodium (137-145) mmol/L Creatinine (0.52-1.04) mg/dL Glucose (74-99) mg/dL POC Glucose (mg/dL) 276 H 290 H 257 H (75-99) mg/dL AST (14-36) U/L Alkaline Phosphatase (38-126) U/L Total Protein (6.3-8.2) g/dL 10/10/19 10/10/19 10/10/19 Range/Units 16:31 16:32 17:23 WBC (4.0-11.0) k/uL Sodium 133 L (137-145) mmol/L Creatinine 0.44 L (0.52-1.04) mg/dL Glucose 268 H (74-99) mg/dL POC Glucose (mg/dL) 271 H 265 H (75-99) mg/dL AST (14-36) U/L Alkaline Phosphatase (38-126) U/L Total Protein (6.3-8.2) g/dL 10/10/19 10/10/19 10/11/19 Range/Units 17:58 21:46 01:55 WBC (4.0-11.0) k/uL Sodium (137-145) mmol/L Creatinine (0.52-1.04) mg/dL Glucose (74-99) mg/dL POC Glucose (mg/dL) 239 H 212 H 112 H (75-99) mg/dL AST (14-36) U/L Alkaline Phosphatase (38-126) U/L Total Protein (6.3-8.2) g/dL 10/11/19 10/11/19 10/11/19 Range/Units 04:22 04:22 06:37 WBC 13.5 H (4.0-11.0) k/uL Sodium 134 L (137-145) mmol/L Creatinine (0.52-1.04) mg/dL Glucose 293 H (74-99) mg/dL POC Glucose (mg/dL) 303 H (75-99) mg/dL AST 53 H (14-36) U/L Alkaline Phosphatase 137 H (38-126) U/L Total Protein 5.8 L (6.3-8.2) g/dL 10/11/19 10/11/19 Range/Units 07:39 10:09 WBC (4.0-11.0) k/uL Sodium (137-145) mmol/L Creatinine (0.52-1.04) mg/dL Glucose (74-99) mg/dL POC Glucose (mg/dL) 344 H 222 H (75-99) mg/dL AST (14-36) U/L Alkaline Phosphatase (38-126) U/L Total Protein (6.3-8.2) g/dL Assessment and Plan Plan: 1 DKA with anion gap metabolic acidosis, recovered 2 leukocytosis, likely reactive, improving 3 history of type 1 diabetes mellitus maintained on glargine insulin outpatient basis 4 depression, maintained on Abilify and Prozac Plan The patient has been switched to Levemir insulin 25 units daily Monitor the blood sugar and provide sliding scale coverage Resume home medications We'll transfer this patient out of the intensive care unit. Medicine is to follow.
[2019-10-11 15:04] LABS: Hemoglobin A1C 14.5 % (4.0-6.0)
[2019-10-12] MEDS ORDERED: INSULIN DETEMIR (LEVEMIR) 100 UNIT/ML SYR SQ SCH (07:00)
== END 2019-10-11 11:40 | disposition home or self-care (01) | DRG 639 ==
LOC: EC 08:00 → 2SICU 10:12
PROVIDERS: ADMIT Internal Medicine; ATTEND Internal Medicine
DX: E10.10 Type 1 diabetes mellitus with ketoacidosis without coma (principal); E86.0 Dehydration; Z79.4 Long term (current) use of insulin; F32.9 Major depressive disorder, single episode, unspecified; F41.9 Anxiety disorder, unspecified; F17.210 Nicotine dependence, cigarettes, uncomplicated; F17.290 Nicotine dependence, other tobacco product, uncomplicated; Z71.6 Tobacco abuse counseling; Z79.899 Other long term (current) drug therapy; Z90.89 Acquired absence of other organs; Z86.19 Personal history of other infectious and parasitic diseases; Z98.890 Other specified postprocedural states; Z82.0 Family history of epilepsy and other diseases of the nervous system; Z82.49 Family history of ischemic heart disease and other diseases of the circulatory system
CPT/HCPCS: 36415; 80051; 80053; 81001; 81025; 82009; 82150; 82565; 82803; 82947; 83036; 83605; 83690; 83735; 84100; 84520; 85025; 85027; 85610; 85730; 93005; 96360; 96361; 99291

== ENCOUNTER → 2020-09-20 | Outpatient (CLI) | payer OTHER ==
--- NOTE | 2020-09-20 12:50 | XR ---
EXAMINATION TYPE: XR lumbosacral spine min 4V DATE OF EXAM: 09/20/2020 COMPARISON: 01/25/2012 HISTORY: Low back pain, scoliosis TECHNIQUE: 3 view lumbar spine FINDINGS: There is scoliosis present with convexity to the left. There are 4 lumbar type vertebral gabi dies. There is sacralization of L5. Facets as visualized are normal. No spondylolytic defects are sandra dent. Vertebral body heights are preserved. Disc heights are preserved. IMPRESSION: 1. Scoliosis. 2. Sacralization of L5
== END | disposition home or self-care (01) ==
LOC: RADXRMAIN 12:05
PROVIDERS: ATTEND Pediatrics Adolescent Medicine
DX: M41.86 Other forms of scoliosis, lumbar region (principal); Q76.49 Other congenital malformations of spine, not associated with scoliosis
CPT/HCPCS: 72110

== ENCOUNTER → 2020-09-22 | Outpatient (CLI) | payer OTHER ==
--- NOTE | 2020-09-22 16:42 | XR ---
EXAMINATION TYPE: XR Hip Complete LT DATE OF EXAM: 09/22/2020 COMPARISON: NONE HISTORY: 19-year-old female M2 5.552 TECHNIQUE: 2 views FINDINGS: IUD device is present left paramedian pelvis. Left hip joint is intact. No acute fracture, subluxation, dislocation seen. Joint space is relatively maintained. IMPRESSION: No acute osseous abnormality seen.
== END | disposition home or self-care (01) ==
LOC: RADXRMAIN 16:21
PROVIDERS: ATTEND Pediatrics Adolescent Medicine
DX: M25.552 Pain in left hip (principal)
CPT/HCPCS: 73502

== ENCOUNTER → 2020-09-22 | Outpatient (CLI) | payer OTHER ==
[2020-09-22 14:49] LABS: Basophils # (A) 0.05 X 10*3/uL (0.00-0.10); Basophils % (A) 0.6 %; Eosinophils # (A) 0.15 X 10*3/uL (0.04-0.35); Eosinophils % (A) 1.7 %; HCT 44.2 % (37.2-46.3); HGB 14.9 g/dL (12.0-15.0); Lymphocytes # (A) 2.34 X 10*3/uL (0.90-5.00); Lymphocytes % (A) 26.7 %; MCH 30.8 pg (27.0-32.0); MCHC 33.7 g/dL (32.0-37.0); MCV 91.3 fL (80.0-97.0); Mean Platelet Volume 10.2 fL (9.5-12.2); Monocytes # (A) 0.72 X 10*3/uL (0.20-1.00); Monocytes % (A) 8.2 %; Neutrophils # (A) 5.46 X 10*3/uL (1.80-7.70); Neutrophils % (A) 62.5 %; Platelet Count 353 X 10*3/uL (140-440); RBC 4.84 X 10*6/uL (4.10-5.20); RDW 11.8 % (11.5-14.5); WBC 8.75 X 10*3/uL (4.50-10.00)
[2020-09-22 16:22] LABS: African American GFR (CKD) 122.1 (60.0-200.0); Albumin 4.6 g/dL (3.80-4.90); Albumin/Globulin Ratio 1.7 (1.60-3.17); Anion Gap 7.2 mmol/L (4.00-12.00); BUN/Creat Ratio 11.25 Ratio (12.00-20.00); Calcium 9.6 mg/dL (8.7-10.3); Carbon Dioxide 29.8 mmol/L (21.6-31.8); Chol/HDL Ratio 2.91; Globulin 2.7 g/dL (1.6-3.3); LDL Cholesterol,Calculated 96.2 mg/dL (0.0-131.0); Non-African American GFR(CKD) 105.4 (60.0-200.0); Potassium 4.9 mmol/L (3.5-5.5); Total Bilirubin 0.6 mg/dL (0.2-1.2); Total Protein 7.3 g/dL (6.2-8.2); VLDL Calculation 10.8 mg/dL (5.00-40.00)
[2020-09-22 16:30] LABS: T4, Free (Free Thyroxine) 1.2 ng/dL (0.80-1.80)
[2020-09-22 18:22] LABS: Hemoglobin A1C 11.2 % (4.0-6.0)
[2020-09-22 18:40] LABS: Erythrocyte Sedimentation Rate 2 mm/Hr (0-20)
== END | disposition home or self-care (01) ==
LOC: LABWHC1 10:24
PROVIDERS: ATTEND Pediatrics Adolescent Medicine
DX: E10.65 Type 1 diabetes mellitus with hyperglycemia (principal); M54.5 Low back pain
CPT/HCPCS: 36415; 80053; 80061; 82306; 83036; 84439; 84443; 85025; 85652; 86038; 86039

== ENCOUNTER 2020-11-13 19:12 | Emergency (ER) | payer OTHER ==
[2020-11-13 19:34] VITALS: RESP 18; TEMP 98.7
[2020-11-13 19:59] LABS: Appearance,Urine Clear (Clear); Bacteria,Urine Rare /hpf; Bilirubin,Urine Negative (Negative); Blood,Urine Large (Negative); Color,Urine Yellow; Glucose,Urine (UA) Trace (Negative); Ketones,Urine 2+ (Negative); Leukocyte Esterase,Urine Negative (Negative); Mucus,Urine Occasional /hpf; Nitrite,Urine Negative (Negative); PH, Urine 6.5 (5.0-8.0); Protein,Urine 1+ (Negative); RBC,Urine <1 /hpf (0-5); Specific Gravity,Urine 1.026 (1.001-1.035); Squamous Epithelial Cell,Urine 5 /hpf (0-4); WBC,Urine 1 /hpf (0-5)
[2020-11-13 20:07] LABS: Amphetamine Screen,Urine Not Detected (NotDetected); Barbiturate Screen,Urine Not Detected (NotDetected); Benzodiazepines Screen,Urine Not Detected (NotDetected); Cocaine Screen,Urine Not Detected (NotDetected); Methadone Screen, Urine Not Detected (NotDetected); Opiate Screen,Urine Not Detected (NotDetected); Oxycodone Screen, Urine Not Detected (NotDetected); Phencyclidine Screen,Urine Not Detected (NotDetected); Tricyclic Antidepressant,Urine Not Detected (NotDetected); Urn Cannabinoid Scrn Detected (NotDetected)
--- NOTE | 2020-11-13 20:27 | ED ---
Psych HPI - General Chief Complaint: Psychiatric Symptoms Stated Complaint: Mental Health Time Seen by Provider: 11/13/20 20:07 Source: patient Mode of arrival: ambulatory - History of Present Illness Initial Comments: 20 year-old female patient presents to the emergency department for evaluation of increased depression and mood swings. Has been diagnosed with bipolar disorder and depression with psychotic features. States she stopped taking her medication 2 weeks ago those included Abilify and Zoloft. States that symptoms have been worsening since stopping those medications. States she reports increasing depression states that she is crying all the time. Not sleeping well. States that she feels helpless and out of control. Her therapist recommended she come in for evaluation. She denies any suicidal or homicidal ideation. States she has been drinking more over the last month, but has been working on it with her therapist. She does smoke marijuana but denies any other street drug use. Denies any current physical symptoms or concerns. - Related Data Home Medications Medication Instructions Recorded Confirmed ARIPiprazole [Abilify] 5 mg PO DAILY 10/10/19 11/13/20 INSULIN ASPART (NovoLOG) [NovoLOG See Protocol SQ ACHS 10/10/19 11/13/20 (formulary)] Zoloft (Unknown Strength) 1 dose PO DAILY 11/13/20 11/13/20 Allergies Allergy/AdvReac Type Severity Reaction Status Date / Time No Known Allergies Allergy Verified 11/13/20 19:34 Review of Systems ROS Statement: Those systems with pertinent positive or pertinent negative responses have been documented in the HPI. ROS Other: All systems not noted in ROS Statement are negative. Past Medical History Past Medical History: Diabetes Mellitus Additional Past Medical History / Comment(s): IDDM type 1/normally pt uses insulin pump but ran out of supplies-supplies will be arriving to her soon-for now pt is using subq insulin injections, past HPV History of Any Multi-Drug Resistant Organisms: None Reported Past Surgical History: Adenoidectomy, Tonsillectomy Past Anesthesia/Blood Transfusion Reactions: No Reported Reaction Past Psychological History: Anxiety, Bipolar, Depression Smoking Status: Current every day smoker, Vaper Past Alcohol Use History: Occasional Past Drug Use History: Marijuana - Past Family History Mother Family Medical History: No Reported History Additional Family Medical History / Comment(s): migraines Father Family Medical History: Hypertension Additional Family Medical History / Comment(s): Father is healthy General Exam Limitations: no limitations General appearance: alert, in no apparent distress, other (This is a well- developed, well-nourished adult female patient in no acute distress. Vital signs upon presentation are temperature 98.7F, pulse 93, respirations 18, blood pressure 113/81, pulse ox 96% on room air.) Eye exam: Present: normal appearance, PERRL, EOMI. Absent: scleral icterus, conjunctival injection, periorbital swelling ENT exam: Present: normal exam, normal oropharynx, mucous membranes moist Respiratory exam: Present: normal lung sounds bilaterally. Absent: respiratory distress, wheezes, rales, rhonchi, stridor Cardiovascular Exam: Present: regular rate, normal rhythm, normal heart sounds. Absent: systolic murmur, diastolic murmur, rubs, gallop, clicks GI/Abdominal exam: Present: soft, normal bowel sounds. Absent: distended, tenderness, guarding, rebound, rigid Neurological exam: Present: alert, oriented X3, CN II-XII intact Psychiatric exam: Present: normal affect, normal mood Skin exam: Present: warm, dry, intact, normal color. Absent: rash Course Vital Signs 11/13/20 11/13/20 19:26 22:25 Temperature 98.7 F 98.7 F Pulse Rate 93 84 Respiratory 18 18 Rate Blood Pressure 113/81 118/62 O2 Sat by Pulse 96 97 Oximetry Medical Decision Making - Medical Decision Making 20-year-old female patient presented to the emergency department today for evaluation of increasing depression. Physical examination is unremarkable. She denied suicidal or homicidal ideation. She was seen and evaluated by emergency psychiatric services. A safety plan was developed. She'll be discharged home to follow-up with her therapist and psychiatrist. Return parameters were discussed in detail. She verbalizes understanding and agrees this plan. My attending is Dr. Larose. - Lab Data Lab Results 11/13/20 11/13/20 Range/Units 19:48 19:48 Urine Color Yellow Urine Appearance Clear (Clear) Urine pH 6.5 (5.0-8.0) Ur Specific [place] 1.026 (1.001-1.035) Urine Protein 1+ H (Negative) Urine Glucose (UA) Trace H (Negative) Urine Ketones 2+ H (Negative) Urine Blood Large H (Negative) Urine Nitrite Negative (Negative) Urine Bilirubin Negative (Negative) Urine Urobilinogen 3.0 (<2.0) mg/dL Ur Leukocyte Esterase Negative (Negative) Urine RBC <1 (0-5) /hpf Urine WBC 1 (0-5) /hpf Ur Squamous Epith Cells 5 H (0-4) /hpf Urine Bacteria Rare H (None) /hpf Urine Mucus Occasional H (None) /hpf Urine HCG, Qual Not Detected (Not Detectd) Urine Opiates Screen Not Detected (NotDetected) Ur Oxycodone Screen Not Detected (NotDetected) Urine Methadone Screen Not Detected (NotDetected) Ur Propoxyphene Screen Not Detected (NotDetected) Ur Barbiturates Screen Not Detected (NotDetected) U Tricyclic Antidepress Not Detected (NotDetected) Ur Phencyclidine Scrn Not Detected (NotDetected) Ur Amphetamines Screen Not Detected (NotDetected) U Methamphetamines Scrn Not Detected (NotDetected) U Benzodiazepines Scrn Not Detected (NotDetected) Urine Cocaine Screen Not Detected (NotDetected) U Marijuana (THC) Screen Detected H (NotDetected) Disposition Clinical Impression: Depression Disposition: HOME SELF-CARE Condition: Good Instructions (If sedation given, give patient instructions): Depression (ED) Additional Instructions: Take medications as directed. Follow-up with your therapist and psychiatrist as soon as possible. Return to the emergency department immediately for any new, worsening, or concerning symptoms. Is patient prescribed a controlled substance at d/c from ED?: No Referrals: None,Stated [Primary Care Provider] - 1-2 days Time of Disposition: 02:18
[2020-11-14 02:32] VITALS: BP 117/83; PULSE 89
[2020-11-14 16:46] LABS: C. trachomatis,PCR Negative (Neg,Equiv); Chlamydia trachomatis Source Urine; N. gonorrhoeae,PCR Negative (Neg,Equiv); Neisseria Source Urine
== END 2020-11-14 02:36 | disposition home or self-care (01) ==
LOC: EC 19:12
DX: F32.9 Major depressive disorder, single episode, unspecified (principal); E11.9 Type 2 diabetes mellitus without complications; F41.9 Anxiety disorder, unspecified; F17.200 Nicotine dependence, unspecified, uncomplicated; F12.90 Cannabis use, unspecified, uncomplicated; Z79.4 Long term (current) use of insulin; Z90.89 Acquired absence of other organs
CPT/HCPCS: 80306; 81001; 81025; 82075; 87491; 87591; 99284

== ENCOUNTER 2021-04-22 05:22 | Emergency (ER) | payer OTHER ==
[2021-04-22 05:27] VITALS: RESP 18; TEMP 98.2
[2021-04-22] MEDS ORDERED: SODIUM CHLORIDE 0.9% 1,000 ML IV ONE ×3 (05:42→07:04)
[2021-04-22 06:15] LABS: Glucose,Whole Blood 459 mg/dL (75-99)
[2021-04-22 06:24] LABS: Basophils # (A) 0.1 k/uL (0-0.2); Basophils % (A) 1 %; Eosinophils # (A) 0.1 k/uL (0-0.7); Eosinophils % (A) 1 %; Lymphocytes # (A) 3.1 k/uL (1.0-4.8); Lymphocytes % (A) 26 %; MCH 32.7 pg (25.0-35.0); MCHC 32.6 g/dL (31.0-37.0); MCV 100.4 fL (80.0-100.0); Mean Platelet Volume 6.9; Monocytes # (A) 0.6 k/uL (0-1.0); Monocytes % (A) 5 %; Neutrophils # (A) 7.8 k/uL (1.3-7.7); Neutrophils % (A) 65 %; Platelet Count 449 k/uL (150-450); RBC 4.28 m/uL (3.80-5.40); RDW 13.1 % (11.5-15.5); WBC 12.1 k/uL (3.8-10.6)
[2021-04-22] MEDS ORDERED: INSULIN REGULAR 100 UNIT/ML VIAL (IV) IV STA (06:24)
[2021-04-22 06:39] LABS: ALT 12 U/L (4-34); AST 18 U/L (14-36); African American GFR (CKD) >90 (>60 ml/min/1.73 sqM); Albumin 4.4 g/dL (3.5-5.0); Alkaline Phosphatase 175 U/L (38-126); Anion Gap 8 mmol/L; Blood Urea Nitrogen 16 mg/dL (7-17); Calcium 9.3 mg/dL (8.4-10.2); Carbon Dioxide 23 mmol/L (22-30); Chloride 101 mmol/L (98-107); Glucose 468 mg/dL (74-99); Non-African American GFR(CKD) >90 (>60 ml/min/1.73 sqM); Potassium 4.6 mmol/L (3.5-5.1); Sodium 132 mmol/L (137-145); Total Bilirubin 0.5 mg/dL (0.2-1.3); Total Protein 7.4 g/dL (6.3-8.2)
--- NOTE | 2021-04-22 07:37 | ED ---
Nausea/Vomiting/Diarrhea HPI - General Chief complaint: Nausea/Vomiting/Diarrhea Stated complaint: Diabetic Issue Time Seen by Provider: 04/22/21 05:41 Source: patient Mode of arrival: ambulatory Limitations: no limitations - History of Present Illness Initial comments: This patient is a 20-year-old woman with history of diabetes who presents with nausea and elevated blood sugar that is been going on for number of hours this morning. The patient states that she has not had vomiting. No change in bowel movements. She is denying chest, back, abdominal pain. She does have some myalgias bilateral legs. She denies any symptoms of infection. No fever or chills. No cough or congestion. No dysuria or frequency. MD complaint: nausea -: hour(s) Associated Abdominal Pain: No Severity scale (1-10): 0 Improves with: none Worsens with: none Associated Symptoms: myalgias - Related Data Home Medications Medication Instructions Recorded Confirmed Divalproex Sodium [Depakote] 500 mg PO BID 04/04/21 04/04/21 FLUoxetine HCL [PROzac] 10 mg PO DAILY 04/04/21 04/04/21 Allergies Allergy/AdvReac Type Severity Reaction Status Date / Time No Known Allergies Allergy Verified 04/22/21 05:26 Review of Systems ROS Statement: Those systems with pertinent positive or pertinent negative responses have been documented in the HPI. ROS Other: All systems not noted in ROS Statement are negative. Constitutional: Denies: fever, chills ENT: Denies: throat pain, congestion Respiratory: Denies: cough, dyspnea Cardiovascular: Denies: chest pain, palpitations, edema, syncope Gastrointestinal: Reports: nausea. Denies: abdominal pain, vomiting, diarrhea Genitourinary: Denies: dysuria, hematuria Musculoskeletal: Reports: myalgia. Denies: back pain Skin: Denies: rash Neurological: Denies: headache, weakness Past Medical History Past Medical History: Diabetes Mellitus Additional Past Medical History / Comment(s): IDDM type 1/normally pt uses insulin pump but ran out of supplies-supplies will be arriving to her soon-for now pt is using subq insulin injections, past HPV History of Any Multi-Drug Resistant Organisms: None Reported Past Surgical History: Adenoidectomy, Tonsillectomy Past Anesthesia/Blood Transfusion Reactions: No Reported Reaction Past Psychological History: Anxiety, Bipolar, Depression Smoking Status: Former smoker, Vaper Past Alcohol Use History: Rare Past Drug Use History: Marijuana - Past Family History Mother Family Medical History: No Reported History Additional Family Medical History / Comment(s): migraines Father Family Medical History: Hypertension Additional Family Medical History / Comment(s): Father is healthy General Exam Limitations: no limitations General appearance: alert, in no apparent distress Head exam: Present: atraumatic, normocephalic Eye exam: Present: normal appearance. Absent: scleral icterus, conjunctival injection Neck exam: Present: normal inspection Respiratory exam: Present: normal lung sounds bilaterally. Absent: respiratory distress, wheezes, rales, rhonchi, stridor Cardiovascular Exam: Present: regular rate, normal rhythm, normal heart sounds. Absent: systolic murmur, diastolic murmur, rubs, gallop GI/Abdominal exam: Present: soft. Absent: distended, tenderness, guarding, rebound, rigid, mass Extremities exam: Present: normal inspection, normal capillary refill. Absent: pedal edema, calf tenderness Back exam: Present: normal inspection. Absent: CVA tenderness (R), CVA tenderness (L) Neurological exam: Present: alert Skin exam: Present: warm, dry, intact, normal color. Absent: rash Course Vital Signs 04/22/21 05:22 Temperature 98.2 F Pulse Rate 87 Respiratory 18 Rate Blood Pressure 104/58 O2 Sat by Pulse 99 Oximetry Medical Decision Making - Lab Data Result diagrams: 04/22/21 06:13 04/22/21 06:13 Lab Results 04/22/21 04/22/21 04/22/21 Range/Units 06:13 06:13 06:13 WBC 12.1 H (3.8-10.6) k/uL RBC 4.28 (3.80-5.40) m/uL Hgb 14.0 (11.4-16.0) gm/dL Hct 43.0 (34.0-46.0) % MCV 100.4 H (80.0-100.0) fL MCH 32.7 (25.0-35.0) pg MCHC 32.6 (31.0-37.0) g/dL RDW 13.1 (11.5-15.5) % Plt Count 449 (150-450) k/uL MPV 6.9 Neutrophils % 65 % Lymphocytes % 26 % Monocytes % 5 % Eosinophils % 1 % Basophils % 1 % Neutrophils # 7.8 H (1.3-7.7) k/uL Lymphocytes # 3.1 (1.0-4.8) k/uL Monocytes # 0.6 (0-1.0) k/uL Eosinophils # 0.1 (0-0.7) k/uL Basophils # 0.1 (0-0.2) k/uL Sodium 132 L (137-145) mmol/L Potassium 4.6 (3.5-5.1) mmol/L Chloride 101 (98-107) mmol/L Carbon Dioxide 23 (22-30) mmol/L Anion Gap 8 mmol/L BUN 16 (7-17) mg/dL Creatinine 0.77 (0.52-1.04) mg/dL Est GFR (CKD-EPI)AfAm >90 (>60 ml/min/1.73 sqM) Est GFR (CKD-EPI)NonAf >90 (>60 ml/min/1.73 sqM) Glucose 468 H (74-99) mg/dL POC Glucose (mg/dL) 459 H (75-99) mg/dL POC Glu Community Fundraiser ID Jyoti Rizo Calcium 9.3 (8.4-10.2) mg/dL Total Bilirubin 0.5 (0.2-1.3) mg/dL AST 18 (14-36) U/L ALT 12 (4-34) U/L Alkaline Phosphatase 175 H (38-126) U/L Total Protein 7.4 (6.3-8.2) g/dL Albumin 4.4 (3.5-5.0) g/dL Acetone, Qual Negative (Negative) Disposition Clinical Impression: Hyperglycemia due to type 1 diabetes mellitus Disposition: HOME SELF-CARE Condition: Good Instructions (If sedation given, give patient instructions): Diabetic Hyperglycemia (ED) Is patient prescribed a controlled substance at d/c from ED?: No Referrals: None,Stated [Primary Care Provider] - 1-2 days
[2021-04-22 07:38] VITALS: BP 125/79; PULSE 97
[2021-04-22 07:51] LABS: Glucose,Whole Blood 128 mg/dL (75-99)
== END 2021-04-22 08:02 | disposition home or self-care (01) ==
LOC: EC 05:22
DX: E10.65 Type 1 diabetes mellitus with hyperglycemia (principal); F41.9 Anxiety disorder, unspecified; F31.9 Bipolar disorder, unspecified; Z72.89 Other problems related to lifestyle; F12.90 Cannabis use, unspecified, uncomplicated; Z87.891 Personal history of nicotine dependence
CPT/HCPCS: 36415; 80053; 82009; 85025; 96361; 96374; 99283

== ENCOUNTER 2021-04-27 05:24 | Emergency (ER) | payer OTHER ==
[2021-04-27 05:35] LABS: Glucose,Whole Blood 371 mg/dL (75-99)
[2021-04-27 06:11] LABS: Basophils # (A) 0.1 k/uL (0-0.2); Basophils % (A) 0 %; Eosinophils # (A) 0.1 k/uL (0-0.7); Eosinophils % (A) 1 %; HCT 41.6 % (34.0-46.0); HGB 13.7 gm/dL (11.4-16.0); Lymphocytes % (A) 31 %; MCH 32.3 pg (25.0-35.0); MCHC 32.9 g/dL (31.0-37.0); MCV 98.3 fL (80.0-100.0); Monocytes # (A) 0.7 k/uL (0-1.0); Monocytes % (A) 5 %; Neutrophils # (A) 7.9 k/uL (1.3-7.7); Neutrophils % (A) 61 %; Platelet Count 424 k/uL (150-450); RBC 4.23 m/uL (3.80-5.40); RDW 12.9 % (11.5-15.5); WBC 12.9 k/uL (3.8-10.6)
[2021-04-27 06:16] LABS: ALT 10 U/L (4-34); AST 18 U/L (14-36); African American GFR (CKD) >90 (>60 ml/min/1.73 sqM); Albumin 4.4 g/dL (3.5-5.0); Alkaline Phosphatase 122 U/L (38-126); Anion Gap 8 mmol/L; Blood Urea Nitrogen 13 mg/dL (7-17); Calcium 9.2 mg/dL (8.4-10.2); Carbon Dioxide 26 mmol/L (22-30); Chloride 102 mmol/L (98-107); Glucose 392 mg/dL (74-99); Non-African American GFR(CKD) >90 (>60 ml/min/1.73 sqM); Potassium 4.2 mmol/L (3.5-5.1); Sodium 136 mmol/L (137-145); Total Bilirubin 0.5 mg/dL (0.2-1.3); Total Protein 7.2 g/dL (6.3-8.2)
[2021-04-27 06:49] LABS: Appearance,Urine Clear (Clear); Bilirubin,Urine Negative (Negative); Blood,Urine Negative (Negative); Color,Urine Light Yellow; Glucose,Urine (UA) 4+ (Negative); Ketones,Urine Negative (Negative); Leukocyte Esterase,Urine Negative (Negative); Nitrite,Urine Negative (Negative); Protein,Urine Negative (Negative); Urobilinogen,Urine <2.0 mg/dL (<2.0)
--- NOTE | 2021-04-27 07:26 | ED ---
General Adult HPI - General Chief complaint: Recheck/Abnormal Lab/Rx Stated complaint: Diabetic Issue Time Seen by Provider: 04/27/21 07:05 Source: patient, RN notes reviewed Mode of arrival: ambulatory Limitations: no limitations - History of Present Illness Initial comments: This a 20-year-old female sent emergency Department chief complaint of hypergl ycemia. Patient states that she was in DKA recently and she was concern as her blood sugar read high. Patient states her blood sugars improving she denies any nausea vomiting diarrhea constipation or abdominal pain no signs of infection. Patient states that she otherwise feels fine. She does have an insulin pump, Dexcom - Related Data Home Medications Medication Instructions Recorded Confirmed Divalproex Sodium [Depakote] 500 mg PO BID 04/04/21 04/04/21 FLUoxetine HCL [PROzac] 10 mg PO DAILY 04/04/21 04/04/21 Allergies Allergy/AdvReac Type Severity Reaction Status Date / Time No Known Allergies Allergy Verified 04/27/21 05:27 Review of Systems ROS Statement: Those systems with pertinent positive or pertinent negative responses have been documented in the HPI. ROS Other: All systems not noted in ROS Statement are negative. Past Medical History Past Medical History: Diabetes Mellitus Additional Past Medical History / Comment(s): IDDM type 1/normally pt uses insulin pump but ran out of supplies-supplies will be arriving to her soon-for now pt is using subq insulin injections, past HPV History of Any Multi-Drug Resistant Organisms: None Reported Past Surgical History: Adenoidectomy, Tonsillectomy Past Anesthesia/Blood Transfusion Reactions: No Reported Reaction Past Psychological History: Anxiety, Bipolar, Depression Smoking Status: Current some day smoker, Vaper Past Alcohol Use History: Rare Past Drug Use History: Marijuana - Past Family History Mother Family Medical History: No Reported History Additional Family Medical History / Comment(s): migraines Father Family Medical History: Hypertension Additional Family Medical History / Comment(s): Father is healthy General Exam Limitations: no limitations General appearance: alert, in no apparent distress Head exam: Present: atraumatic, normocephalic, normal inspection Eye exam: Present: normal appearance, PERRL, EOMI. Absent: scleral icterus, conjunctival injection, periorbital swelling ENT exam: Present: normal exam, mucous membranes moist Neck exam: Present: normal inspection, full ROM. Absent: tenderness, meningismus, lymphadenopathy Respiratory exam: Present: normal lung sounds bilaterally. Absent: respiratory distress, wheezes, rales, rhonchi, stridor Cardiovascular Exam: Present: regular rate, normal rhythm, normal heart sounds. Absent: systolic murmur, diastolic murmur, rubs, gallop, clicks GI/Abdominal exam: Present: soft, normal bowel sounds. Absent: distended, tenderness, guarding, rebound, rigid Course Vital Signs 04/27/21 05:27 Temperature 99 F Pulse Rate 76 Respiratory 16 Rate Blood Pressure 118/79 O2 Sat by Pulse 98 Oximetry Medical Decision Making - Medical Decision Making Patient's labs did not reveal any signs of DKA patient is not acidotic. Patient states that she's had no nausea and diarrhea constipation. Patient has no signs of infection patient was offered IV for IV fluid hydration she states that she'll correct her blood sugar return for any worsening or change of symptoms. - Lab Data Result diagrams: 04/27/21 05:40 04/27/21 05:40 Lab Results 04/27/21 04/27/21 04/27/21 Range/Units 05:33 05:40 05:40 WBC 12.9 H (3.8-10.6) k/uL RBC 4.23 (3.80-5.40) m/uL Hgb 13.7 (11.4-16.0) gm/dL Hct 41.6 (34.0-46.0) % MCV 98.3 (80.0-100.0) fL MCH 32.3 (25.0-35.0) pg MCHC 32.9 (31.0-37.0) g/dL RDW 12.9 (11.5-15.5) % Plt Count 424 (150-450) k/uL MPV 7.0 Neutrophils % 61 % Lymphocytes % 31 % Monocytes % 5 % Eosinophils % 1 % Basophils % 0 % Neutrophils # 7.9 H (1.3-7.7) k/uL Lymphocytes # 4.0 (1.0-4.8) k/uL Monocytes # 0.7 (0-1.0) k/uL Eosinophils # 0.1 (0-0.7) k/uL Basophils # 0.1 (0-0.2) k/uL Sodium 136 L (137-145) mmol/L Potassium 4.2 (3.5-5.1) mmol/L Chloride 102 (98-107) mmol/L Carbon Dioxide 26 (22-30) mmol/L Anion Gap 8 mmol/L BUN 13 (7-17) mg/dL Creatinine 0.60 (0.52-1.04) mg/dL Est GFR (CKD-EPI)AfAm >90 (>60 ml/min/1.73 sqM) Est GFR (CKD-EPI)NonAf >90 (>60 ml/min/1.73 sqM) Glucose 392 H (74-99) mg/dL POC Glucose (mg/dL) 371 H (75-99) mg/dL POC Glu Sales Ledger Clerk ID Todd Castillo Calcium 9.2 (8.4-10.2) mg/dL Total Bilirubin 0.5 (0.2-1.3) mg/dL AST 18 (14-36) U/L ALT 10 (4-34) U/L Alkaline Phosphatase 122 (38-126) U/L Total Protein 7.2 (6.3-8.2) g/dL Albumin 4.4 (3.5-5.0) g/dL Urine Color Urine Appearance (Clear) Urine pH (5.0-8.0) Ur Specific [place] (1.001-1.035) Urine Protein (Negative) Urine Glucose (UA) (Negative) Urine Ketones (Negative) Urine Blood (Negative) Urine Nitrite (Negative) Urine Bilirubin (Negative) Urine Urobilinogen (<2.0) mg/dL Ur Leukocyte Esterase (Negative) Acetone, Qual Negative (Negative) 04/27/21 Range/Units 06:03 WBC (3.8-10.6) k/uL RBC (3.80-5.40) m/uL Hgb (11.4-16.0) gm/dL Hct (34.0-46.0) % MCV (80.0-100.0) fL MCH (25.0-35.0) pg MCHC (31.0-37.0) g/dL RDW (11.5-15.5) % Plt Count (150-450) k/uL MPV Neutrophils % % Lymphocytes % % Monocytes % % Eosinophils % % Basophils % % Neutrophils # (1.3-7.7) k/uL Lymphocytes # (1.0-4.8) k/uL Monocytes # (0-1.0) k/uL Eosinophils # (0-0.7) k/uL Basophils # (0-0.2) k/uL Sodium (137-145) mmol/L Potassium (3.5-5.1) mmol/L Chloride (98-107) mmol/L Carbon Dioxide (22-30) mmol/L Anion Gap mmol/L BUN (7-17) mg/dL Creatinine (0.52-1.04) mg/dL Est GFR (CKD-EPI)AfAm (>60 ml/min/1.73 sqM) Est GFR (CKD-EPI)NonAf (>60 ml/min/1.73 sqM) Glucose (74-99) mg/dL POC Glucose (mg/dL) (75-99) mg/dL POC Glu Sales Ledger Clerk ID Calcium (8.4-10.2) mg/dL Total Bilirubin (0.2-1.3) mg/dL AST (14-36) U/L ALT (4-34) U/L Alkaline Phosphatase (38-126) U/L Total Protein (6.3-8.2) g/dL Albumin (3.5-5.0) g/dL Urine Color Light Yellow Urine Appearance Clear (Clear) Urine pH 7.0 (5.0-8.0) Ur Specific [place] 1.040 H (1.001-1.035) Urine Protein Negative (Negative) Urine Glucose (UA) 4+ H (Negative) Urine Ketones Negative (Negative) Urine Blood Negative (Negative) Urine Nitrite Negative (Negative) Urine Bilirubin Negative (Negative) Urine Urobilinogen <2.0 (<2.0) mg/dL Ur Leukocyte Esterase Negative (Negative) Acetone, Qual (Negative) Disposition Clinical Impression: Hyperglycemia due to type 1 diabetes mellitus Disposition: HOME SELF-CARE Condition: Stable Instructions (If sedation given, give patient instructions): Diabetic Hyperglycemia (ED) Additional Instructions: Please return to the Emergency Department if symptoms worsen or any other concerns. Is patient prescribed a controlled substance at d/c from ED?: No Referrals: None,Stated [Primary Care Provider] - 1-2 days Time of Disposition: 07:26
[2021-04-27 07:56] VITALS: BP 121/64; PULSE 83; RESP 14; TEMP 98
== END 2021-04-27 08:16 | disposition home or self-care (01) ==
LOC: EC 05:24
DX: E10.65 Type 1 diabetes mellitus with hyperglycemia (principal); F41.9 Anxiety disorder, unspecified; F31.9 Bipolar disorder, unspecified; F17.290 Nicotine dependence, other tobacco product, uncomplicated; F12.90 Cannabis use, unspecified, uncomplicated
CPT/HCPCS: 36415; 80053; 81003; 82009; 85025; 99284

== ENCOUNTER 2021-07-02 18:52 | Observation (INO) | payer OTHER ==
--- NOTE | 2021-07-02 19:56 | ED ---
General Adult HPI - General Source: patient, RN notes reviewed Mode of arrival: ambulatory Limitations: no limitations <Jag Foster - Last Filed: 07/03/21 02:46> - General Source: RN notes reviewed, old records reviewed - History of Present Illness -: days(s) Radiation: non-radiation Improves with: immobilization Worsens with: movement Associated Symptoms: loss of appetite, nausea/vomiting, weakness Treatments Prior to Arrival: none <Nelson Larose - Last Filed: 07/03/21 05:23> - General Chief complaint: Recheck/Abnormal Lab/Rx Stated complaint: High BS/vomiting Time Seen by Provider: 07/02/21 19:37 - History of Present Illness Initial comments: This is a pleasant 20-year-old female who presents to emergency department stating that her sugars have been running high. Patient is on insulin pump and is known to have type 1 diabetes. Patient states that she previously has been in DKA twice. Patient was admitted once here. 1. She states for the last 10 hours she has had nausea, no vomiting, blood sugars been registering high. Patient denies any preceding symptomology. Patient states she is getting some chest burning. Patient states during her previous inpatient stay she was in the ICU. Patient states that she was also on the cardiac floor because they DKA had stressed her heart. Patient has had several episodes of vomiting. No hematemesis or coffee-ground emesis. She states she did have one episode of diarrhea 2 days ago which resolved. No headache, no fever or chills, no changes in vision or hearing, no sore throat or difficulty with speech, no neck pain, no shortness of breath, , no changes in urination or bowel movements, no numbness or tingling, no extremity pain, no skin rashes or lesions. (Jag Foster) - Related Data Home Medications Medication Instructions Recorded Confirmed Glucagon [Baqsimi] 1 spray NASAL DIRECTED PRN 07/02/21 07/02/21 Ibuprofen [Motrin] 800 mg PO Q8H PRN 07/02/21 07/02/21 Insulin Aspart (For Pump) [NovoLOG 0.01 unit SQ-PUMP CONTINUOUS 07/02/21 07/02/21 (For Pump)] Allergies Allergy/AdvReac Type Severity Reaction Status Date / Time No Known Allergies Allergy Verified 05/19/22 21:04 Review of Systems ROS Other: All systems not noted in ROS Statement are negative. <Jag Foster - Last Filed: 07/03/21 02:46> ROS Other: All systems not noted in ROS Statement are negative. <Nelson Larose - Last Filed: 07/03/21 05:23> ROS Statement: Those systems with pertinent positive or pertinent negative responses have been documented in the HPI. Past Medical History Past Medical History: Diabetes Mellitus Additional Past Medical History / Comment(s): IDDM type 1, past HPV History of Any Multi-Drug Resistant Organisms: None Reported Past Surgical History: Adenoidectomy, Tonsillectomy Past Anesthesia/Blood Transfusion Reactions: No Reported Reaction Past Psychological History: Anxiety, Bipolar, Depression Smoking Status: Current some day smoker, Vaper Past Alcohol Use History: Rare Past Drug Use History: Marijuana - Past Family History Mother Family Medical History: No Reported History Additional Family Medical History / Comment(s): migraines Father Family Medical History: Hypertension Additional Family Medical History / Comment(s): Father is healthy <Jag Foster - Last Filed: 07/03/21 02:46> General Exam Limitations: no limitations General appearance: alert, in distress Head exam: Present: atraumatic, normocephalic, normal inspection Eye exam: Present: normal appearance, PERRL, EOMI. Absent: scleral icterus, conjunctival injection, periorbital swelling ENT exam: Present: mucous membranes dry (Mild), mucous membranes moist. Absent: normal oropharynx, TM's normal bilaterally, normal external ear exam Neck exam: Present: normal inspection, full ROM. Absent: tenderness, m eningismus, lymphadenopathy Respiratory exam: Present: normal lung sounds bilaterally. Absent: respiratory distress, wheezes, rales, rhonchi, stridor Cardiovascular Exam: Present: normal rhythm, tachycardia, normal heart sounds. Absent: systolic murmur, diastolic murmur, rubs, gallop, clicks GI/Abdominal exam: Present: soft, normal bowel sounds. Absent: distended, tenderness, guarding, rebound, rigid External exam: Present: normal external exam (Chaperoned by Elvira ORELLANA). Absent: erythema, swelling, lesions, lacerations, ecchymosis Speculum exam: Present: vaginal discharge, cervical discharge (Patient has evidence of purulent cervical discharge, light yellow, homogenous), other (No significant cervical inflammation or CMT). Absent: vaginal bleeding, foreign body, tissue, laceration Extremities exam: Present: normal inspection, full ROM, normal capillary refill. Absent: tenderness, pedal edema, joint swelling, calf tenderness Back exam: Present: normal inspection Neurological exam: Present: alert, oriented X3, CN II-XII intact Psychiatric exam: Present: normal affect, normal mood Skin exam: Present: warm, dry, intact, normal color. Absent: rash <Jag Foster - Last Filed: 07/03/21 02:46> General appearance: alert, in no apparent distress Head exam: Present: atraumatic, normocephalic, normal inspection Eye exam: Present: normal appearance, PERRL, EOMI. Absent: scleral icterus, conjunctival injection, periorbital swelling ENT exam: Present: normal exam, mucous membranes moist Neck exam: Present: normal inspection. Absent: tenderness, meningismus, lymphadenopathy Respiratory exam: Present: normal lung sounds bilaterally. Absent: respiratory distress, wheezes, rales, rhonchi, stridor Cardiovascular Exam: Present: regular rate, normal rhythm, normal heart sounds. Absent: systolic murmur, diastolic murmur, rubs, gallop, clicks GI/Abdominal exam: Present: soft, normal bowel sounds. Absent: distended, t enderness, guarding, rebound, rigid Extremities exam: Present: normal inspection, full ROM, normal capillary refill. Absent: tenderness, pedal edema, joint swelling, calf tenderness Back exam: Present: normal inspection Neurological exam: Present: alert, oriented X3, CN II-XII intact Psychiatric exam: Present: normal affect, normal mood Skin exam: Present: warm, dry, intact, normal color. Absent: rash <Nelson Larose - Last Filed: 07/03/21 05:23> - General Exam Comments Initial Comments: Vital signs reviewed, patient tachycardic. However, patient appears to have adequate color. Capillary refill is less than 2 seconds. No specific abdominal tenderness. Does not appear to be toxic. (Jag Foster) Course <Jag Foster - Last Filed: 07/03/21 02:46> <Nelson Larose - Last Filed: 07/03/21 05:23> Vital Signs 07/02/21 07/02/21 07/02/21 19:30 21:30 21:42 Temperature 98.2 F 98.6 F Pulse Rate 127 H 111 H 110 H Respiratory 22 18 Rate Blood Pressure 146/72 86/50 O2 Sat by Pulse 99 99 Oximetry 07/02/21 07/03/21 07/03/21 22:43 00:03 01:04 Temperature 99.2 F 98.1 F Pulse Rate 115 H 102 H 103 H Respiratory 16 18 18 Rate Blood Pressure 89/51 86/45 100/47 O2 Sat by Pulse 100 100 95 Oximetry 07/03/21 07/03/21 07/03/21 01:22 02:00 02:45 Temperature Pulse Rate 92 102 H 105 H Respiratory 18 16 16 Rate Blood Pressure 107/58 90/46 94/49 O2 Sat by Pulse Oximetry 07/03/21 07/03/21 07/03/21 03:00 04:00 04:19 Temperature Pulse Rate 100 106 H 99 Respiratory 16 18 16 Rate Blood Pressure 95/42 96/59 105/66 O2 Sat by Pulse 96 96 Oximetry 07/03/21 07/03/21 04:33 05:00 Temperature Pulse Rate 98 105 H Respiratory 16 16 Rate Blood Pressure 113/70 94/57 O2 Sat by Pulse 96 Oximetry - Reevaluation(s) Reevaluation #1: 07/02/210 Patient reevaluated. Patient noted to have a significantly elevated white blood cell count. Does not appear to be associated with DKA patient is hyperglycemic but has a normal pH at 7.48. (Jag Foster) Reevaluation #2: 07/02/21 23:04 Reevaluation, patient mildly hypotensive. I'm going to order another fluid bolus of normal saline 500 in addition to the 2000 mL of Ringer's lactate she has already received. This is actually in excess of 30 mL/kg bolus. We're awaiting lactic acidosis that was added on has to patient initially was thought to be in DKA and was afebrile. 07/02/21 23:06 Patient's capillary refill is less than 2 seconds. Has good central color. No mottling (Jag Foster) 07/03/21 05:21 Patient is placed on full broad-spectrum antibiotics (Nelson Larose) Reevaluation #3: 07/03/21 05:21 Medical records reviewed (Nelson Larose) Reevaluation #4: 07/03/21 05:21 Patient continues to improve here in the emergency department she is eating and drinking appropriately awake and alert (Nelson Larose) - Consultations Consultation #1: Spoke with [facility] were agreeable to admit this patient (Nelson Larose) EKG Findings - EKG Comments: EKG Findings:: EKG reveals sinus tachycardia with possible left atrial enlargement, normal axis, no acute ST or T-wave changes. Normal cures morphology. Normal intervals. <Jag Foster - Last Filed: 07/03/21 02:46> Medical Decision Making - Lab Data Result diagrams: 07/02/21 20:18 07/02/21 20:18 <Jag Foster - Last Filed: 07/03/21 02:46> - Lab Data Result diagrams: 07/02/21 20:18 07/02/21 20:18 - Radiology Data Radiology results: report reviewed (Chest x-ray CT abdomen and pelvis negative for acute disease), image reviewed <Nelson Larose - Last Filed: 07/03/21 05:23> - Medical Decision Making No symptomology most consistent with DKA. Workup, fluid repletion initiated. We'll start with 2 L of Ringer's lactate initially. Repeat potassium prior to insulin. Patient has malposition of the IUD in the lower uterine segment, tiny amount of low density free fluid in the pelvis that could be physiologic. No pelvic mass. We'll perform a pelvic examination. (Jag Foster) 20 female to the emergency department for evaluation of DKA. Patient is smoker with labile blood pressure little continues to improve significant low volume. Patient does have probable underlying infection although unsure of cause. Could be some sort of uterine or pelvic infection and she did have discharge. Afebrile elevated white count borderline DKA. Patient's awake alert and acting appropriately (Nelson Larose) - Lab Data Lab Results 07/02/21 07/02/21 07/02/21 Range/Units 19:45 20:18 20:18 WBC 29.5 H (3.8-10.6) k/uL RBC 4.21 (3.80-5.40) m/uL Hgb 13.2 (11.4-16.0) gm/dL Hct 40.1 (34.0-46.0) % MCV 95.1 (80.0-100.0) fL MCH 31.4 (25.0-35.0) pg MCHC 33.0 (31.0-37.0) g/dL RDW 11.7 (11.5-15.5) % Plt Count 404 (150-450) k/uL MPV 7.6 Neutrophils % (Manual) 86 % Lymphocytes % (Manual) 8 % Monocytes % (Manual) 5 % Eosinophils % (Manual) 1 % Neutrophils # (Manual) 25.37 H (1.3-7.7) k/uL Lymphocytes # (Manual) 2.36 (1.0-4.8) k/uL Monocytes # (Manual) 1.48 H (0-1.0) k/uL Eosinophils # (Manual) 0.30 (0-0.7) k/uL Nucleated RBCs 0 (0-0) /100 WBC Manual Slide Review Performed RBC Morphology Normal VBG pH (7.31-7.41) VBG pCO2 (37-51) mmHg VBG HCO3 (24-28) mmol/L Sodium 136 L (137-145) mmol/L Potassium 5.1 (3.5-5.1) mmol/L Chloride 99 (98-107) mmol/L Carbon Dioxide 18 L (22-30) mmol/L Anion Gap 19 mmol/L BUN 17 (7-17) mg/dL Creatinine 0.77 (0.52-1.04) mg/dL Est GFR (CKD-EPI)AfAm >90 (>60 ml/min/1.73 sqM) Est GFR (CKD-EPI)NonAf >90 (>60 ml/min/1.73 sqM) Glucose 414 H (74-99) mg/dL POC Glucose (mg/dL) (75-99) mg/dL POC Glu Speech Communication Professor ID Lactic Ac Sepsis Rflx Plasma Lactic Acid Candido (0.7-2.0) mmol/L Calcium 9.7 (8.4-10.2) mg/dL Phosphorus 4.0 (2.5-4.5) mg/dL Magnesium 1.6 (1.6-2.3) mg/dL Total Bilirubin 1.4 H (0.2-1.3) mg/dL AST 28 (14-36) U/L ALT 15 (4-34) U/L Alkaline Phosphatase 82 (38-126) U/L Troponin I (0.000-0.034) ng/mL Total Protein 7.9 (6.3-8.2) g/dL Albumin 5.1 H (3.5-5.0) g/dL Lipase 68 (23-300) U/L Urine Color Urine Appearance (Clear) Urine pH (5.0-8.0) Ur Specific [place] (1.001-1.035) Urine Protein (Negative) Urine Glucose (UA) (Negative) Urine Ketones (Negative) Urine Blood (Negative) Urine Nitrite (Negative) Urine Bilirubin (Negative) Urine Urobilinogen (<2.0) mg/dL Ur Leukocyte Esterase (Negative) Urine HCG, Qual (Not Detectd) Acetone, Qual (Negative) Coronavirus (PCR) Not Detected (Not Detectd) Trichomonas Ag (Rapid) (Negative) 07/02/21 07/02/21 07/02/21 Range/Units 20:18 20:22 22:30 WBC (3.8-10.6) k/uL RBC (3.80-5.40) m/uL Hgb (11.4-16.0) gm/dL Hct (34.0-46.0) % MCV (80.0-100.0) fL MCH (25.0-35.0) pg MCHC (31.0-37.0) g/dL RDW (11.5-15.5) % Plt Count (150-450) k/uL MPV Neutrophils % (Manual) % Lymphocytes % (Manual) % Monocytes % (Manual) % Eosinophils % (Manual) % Neutrophils # (Manual) (1.3-7.7) k/uL Lymphocytes # (Manual) (1.0-4.8) k/uL Monocytes # (Manual) (0-1.0) k/uL Eosinophils # (Manual) (0-0.7) k/uL Nucleated RBCs (0-0) /100 WBC Manual Slide Review RBC Morphology VBG pH 7.38 (7.31-7.41) VBG pCO2 36 L (37-51) mmHg VBG HCO3 21 L (24-28) mmol/L Sodium (137-145) mmol/L Potassium (3.5-5.1) mmol/L Chloride (98-107) mmol/L Carbon Dioxide (22-30) mmol/L Anion Gap mmol/L BUN (7-17) mg/dL Creatinine (0.52-1.04) mg/dL Est GFR (CKD-EPI)AfAm (>60 ml/min/1.73 sqM) Est GFR (CKD-EPI)NonAf (>60 ml/min/1.73 sqM) Glucose (74-99) mg/dL POC Glucose (mg/dL) (75-99) mg/dL POC Glu Speech Communication Professor ID Lactic Ac Sepsis Rflx Plasma Lactic Acid Candido (0.7-2.0) mmol/L Calcium (8.4-10.2) mg/dL Phosphorus (2.5-4.5) mg/dL Magnesium (1.6-2.3) mg/dL Total Bilirubin (0.2-1.3) mg/dL AST (14-36) U/L ALT (4-34) U/L Alkaline Phosphatase (38-126) U/L Troponin I 0.014 (0.000-0.034) ng/mL Total Protein (6.3-8.2) g/dL Albumin (3.5-5.0) g/dL Lipase (23-300) U/L Urine Color Light Yellow Urine Appearance Clear (Clear) Urine pH 5.0 (5.0-8.0) Ur Specific [place] 1.027 (1.001-1.035) Urine Protein Negative (Negative) Urine Glucose (UA) 4+ H (Negative) Urine Ketones 4+ H (Negative) Urine Blood Negative (Negative) Urine Nitrite Negative (Negative) Urine Bilirubin Negative (Negative) Urine Urobilinogen <2.0 (<2.0) mg/dL Ur Leukocyte Esterase Negative (Negative) Urine HCG, Qual (Not Detectd) Acetone, Qual (Negative) Coronavirus (PCR) (Not Detectd) Trichomonas Ag (Rapid) (Negative) 07/02/21 07/02/21 07/02/21 Range/Units 22:30 22:55 22:56 WBC (3.8-10.6) k/uL RBC (3.80-5.40) m/uL Hgb (11.4-16.0) gm/dL Hct (34.0-46.0) % MCV (80.0-100.0) fL MCH (25.0-35.0) pg MCHC (31.0-37.0) g/dL RDW (11.5-15.5) % Plt Count (150-450) k/uL MPV Neutrophils % (Manual) % Lymphocytes % (Manual) % Monocytes % (Manual) % Eosinophils % (Manual) % Neutrophils # (Manual) (1.3-7.7) k/uL Lymphocytes # (Manual) (1.0-4.8) k/uL Monocytes # (Manual) (0-1.0) k/uL Eosinophils # (Manual) (0-0.7) k/uL Nucleated RBCs (0-0) /100 WBC Manual Slide Review RBC Morphology VBG pH (7.31-7.41) VBG pCO2 (37-51) mmHg VBG HCO3 (24-28) mmol/L Sodium (137-145) mmol/L Potassium (3.5-5.1) mmol/L Chloride (98-107) mmol/L Carbon Dioxide (22-30) mmol/L Anion Gap mmol/L BUN (7-17) mg/dL Creatinine (0.52-1.04) mg/dL Est GFR (CKD-EPI)AfAm (>60 ml/min/1.73 sqM) Est GFR (CKD-EPI)NonAf (>60 ml/min/1.73 sqM) Glucose (74-99) mg/dL POC Glucose (mg/dL) 417 H (75-99) mg/dL POC Glu Speech Communication Professor ID Duncan Hauser Lactic Ac Sepsis Rflx Plasma Lactic Acid Candido 2.3 H* (0.7-2.0) mmol/L Calcium (8.4-10.2) mg/dL Phosphorus (2.5-4.5) mg/dL Magnesium (1.6-2.3) mg/dL Total Bilirubin (0.2-1.3) mg/dL AST (14-36) U/L ALT (4-34) U/L Alkaline Phosphatase (38-126) U/L Troponin I (0.000-0.034) ng/mL Total Protein (6.3-8.2) g/dL Albumin (3.5-5.0) g/dL Lipase (23-300) U/L Urine Color Urine Appearance (Clear) Urine pH (5.0-8.0) Ur Specific [place] (1.001-1.035) Urine Protein (Negative) Urine Glucose (UA) (Negative) Urine Ketones (Negative) Urine Blood (Negative) Urine Nitrite (Negative) Urine Bilirubin (Negative) Urine Urobilinogen (<2.0) mg/dL Ur Leukocyte Esterase (Negative) Urine HCG, Qual Not Detected (Not Detectd) Acetone, Qual (Negative) Coronavirus (PCR) (Not Detectd) Trichomonas Ag (Rapid) (Negative) 07/02/21 07/03/21 07/03/21 Range/Units 23:25 00:03 00:06 WBC (3.8-10.6) k/uL RBC (3.80-5.40) m/uL Hgb (11.4-16.0) gm/dL Hct (34.0-46.0) % MCV (80.0-100.0) fL MCH (25.0-35.0) pg MCHC (31.0-37.0) g/dL RDW (11.5-15.5) % Plt Count (150-450) k/uL MPV Neutrophils % (Manual) % Lymphocytes % (Manual) % Monocytes % (Manual) % Eosinophils % (Manual) % Neutrophils # (Manual) (1.3-7.7) k/uL Lymphocytes # (Manual) (1.0-4.8) k/uL Monocytes # (Manual) (0-1.0) k/uL Eosinophils # (Manual) (0-0.7) k/uL Nucleated RBCs (0-0) /100 WBC Manual Slide Review RBC Morphology VBG pH (7.31-7.41) VBG pCO2 (37-51) mmHg VBG HCO3 (24-28) mmol/L Sodium (137-145) mmol/L Potassium (3.5-5.1) mmol/L Chloride (98-107) mmol/L Carbon Dioxide (22-30) mmol/L Anion Gap mmol/L BUN (7-17) mg/dL Creatinine (0.52-1.04) mg/dL Est GFR (CKD-EPI)AfAm (>60 ml/min/1.73 sqM) Est GFR (CKD-EPI)NonAf (>60 ml/min/1.73 sqM) Glucose (74-99) mg/dL POC Glucose (mg/dL) (75-99) mg/dL POC Glu Speech Communication Professor ID Lactic Ac Sepsis Rflx Y Plasma Lactic Acid [place]ido (0.7-2.0) mmol/L Calcium (8.4-10.2) mg/dL Phosphorus (2.5-4.5) mg/dL Magnesium (1.6-2.3) mg/dL Total Bilirubin (0.2-1.3) mg/dL AST (14-36) U/L ALT (4-34) U/L Alkaline Phosphatase (38-126) U/L Troponin I (0.000-0.034) ng/mL Total Protein (6.3-8.2) g/dL Albumin (3.5-5.0) g/dL Lipase (23-300) U/L Urine Color Urine Appearance (Clear) Urine pH (5.0-8.0) Ur Specific [place] (1.001-1.035) Urine Protein (Negative) Urine Glucose (UA) (Negative) Urine Ketones (Negative) Urine Blood (Negative) Urine Nitrite (Negative) Urine Bilirubin (Negative) Urine Urobilinogen (<2.0) mg/dL Ur Leukocyte Esterase (Negative) Urine HCG, Qual (Not Detectd) Acetone, Qual Positive (Negative) Coronavirus (PCR) (Not Detectd) Trichomonas Ag (Rapid) Negative (Negative) 07/03/21 07/03/21 07/03/21 Range/Units 00:38 01:15 01:28 WBC (3.8-10.6) k/uL RBC (3.80-5.40) m/uL Hgb (11.4-16.0) gm/dL Hct (34.0-46.0) % MCV (80.0-100.0) fL MCH (25.0-35.0) pg MCHC (31.0-37.0) g/dL RDW (11.5-15.5) % Plt Count (150-450) k/uL MPV Neutrophils % (Manual) % Lymphocytes % (Manual) % Monocytes % (Manual) % Eosinophils % (Manual) % Neutrophils # (Manual) (1.3-7.7) k/uL Lymphocytes # (Manual) (1.0-4.8) k/uL Monocytes # (Manual) (0-1.0) k/uL Eosinophils # (Manual) (0-0.7) k/uL Nucleated RBCs (0-0) /100 WBC Manual Slide Review RBC Morphology VBG pH (7.31-7.41) VBG pCO2 (37-51) mmHg VBG HCO3 (24-28) mmol/L Sodium (137-145) mmol/L Potassium (3.5-5.1) mmol/L Chloride (98-107) mmol/L Carbon Dioxide (22-30) mmol/L Anion Gap mmol/L BUN (7-17) mg/dL Creatinine (0.52-1.04) mg/dL Est GFR (CKD-EPI)AfAm (>60 ml/min/1.73 sqM) Est GFR (CKD-EPI)NonAf (>60 ml/min/1.73 sqM) Glucose (74-99) mg/dL POC Glucose (mg/dL) 298 H 246 H (75-99) mg/dL POC Glu Speech Communication Professor ID Brittani, Olimpia Clark Lactic Ac Sepsis Rflx Plasma Lactic Acid Cand[place] 2.5 H* (0.7-2.0) mmol/L Calcium (8.4-10.2) mg/dL Phosphorus (2.5-4.5) mg/dL Magnesium (1.6-2.3) mg/dL Total Bilirubin (0.2-1.3) mg/dL AST (14-36) U/L ALT (4-34) U/L Alkaline Phosphatase (38-126) U/L Troponin I (0.000-0.034) ng/mL Total Protein (6.3-8.2) g/dL Albumin (3.5-5.0) g/dL Lipase (23-300) U/L Urine Color Urine Appearance (Clear) Urine pH (5.0-8.0) Ur Specific [place] (1.001-1.035) Urine Protein (Negative) Urine Glucose (UA) (Negative) Urine Ketones (Negative) Urine Blood (Negative) Urine Nitrite (Negative) Urine Bilirubin (Negative) Urine Urobilinogen (<2.0) mg/dL Ur Leukocyte Esterase (Negative) Urine HCG, Qual (Not Detectd) Acetone, Qual (Negative) Coronavirus (PCR) (Not Detectd) Trichomonas Ag (Rapid) (Negative) 07/03/21 07/03/21 07/03/21 Range/Units 02:24 02:55 03:44 WBC (3.8-10.6) k/uL RBC (3.80-5.40) m/uL Hgb (11.4-16.0) gm/dL Hct (34.0-46.0) % MCV (80.0-100.0) fL MCH (25.0-35.0) pg MCHC (31.0-37.0) g/dL RDW (11.5-15.5) % Plt Count (150-450) k/uL MPV Neutrophils % (Manual) % Lymphocytes % (Manual) % Monocytes % (Manual) % Eosinophils % (Manual) % Neutrophils # (Manual) (1.3-7.7) k/uL Lymphocytes # (Manual) (1.0-4.8) k/uL Monocytes # (Manual) (0-1.0) k/uL Eosinophils # (Manual) (0-0.7) k/uL Nucleated RBCs (0-0) /100 WBC Manual Slide Review RBC Morphology VBG pH (7.31-7.41) VBG pCO2 (37-51) mmHg VBG HCO3 (24-28) mmol/L Sodium (137-145) mmol/L Potassium (3.5-5.1) mmol/L Chloride (98-107) mmol/L Carbon Dioxide (22-30) mmol/L Anion Gap mmol/L BUN (7-17) mg/dL Creatinine (0.52-1.04) mg/dL Est GFR (CKD-EPI)AfAm (>60 ml/min/1.73 sqM) Est GFR (CKD-EPI)NonAf (>60 ml/min/1.73 sqM) Glucose (74-99) mg/dL POC Glucose (mg/dL) 257 H 217 H (75-99) mg/dL POC Glu Speech Communication Professor ID Olimpia [place] Ashlee Lactic Ac Sepsis Rflx Y Plasma Lactic Acid [place] (0.7-2.0) mmol/L Calcium (8.4-10.2) mg/dL Phosphorus (2.5-4.5) mg/dL Magnesium (1.6-2.3) mg/dL Total Bilirubin (0.2-1.3) mg/dL AST (14-36) U/L ALT (4-34) U/L Alkaline Phosphatase (38-126) U/L Troponin I (0.000-0.034) ng/mL Total Protein (6.3-8.2) g/dL Albumin (3.5-5.0) g/dL Lipase (23-300) U/L Urine Color Urine Appearance (Clear) Urine pH (5.0-8.0) Ur Specific [place] (1.001-1.035) Urine Protein (Negative) Urine Glucose (UA) (Negative) Urine Ketones (Negative) Urine Blood (Negative) Urine Nitrite (Negative) Urine Bilirubin (Negative) Urine Urobilinogen (<2.0) mg/dL Ur Leukocyte Esterase (Negative) Urine HCG, Qual (Not Detectd) Acetone, Qual (Negative) Coronavirus (PCR) (Not Detectd) Trichomonas Ag (Rapid) (Negative) 07/03/21 Range/Units 04:51 WBC (3.8-10.6) k/uL RBC (3.80-5.40) m/uL Hgb (11.4-16.0) gm/dL Hct (34.0-46.0) % MCV (80.0-100.0) fL MCH (25.0-35.0) pg MCHC (31.0-37.0) g/dL RDW (11.5-15.5) % Plt Count (150-450) k/uL MPV Neutrophils % (Manual) % Lymphocytes % (Manual) % Monocytes % (Manual) % Eosinophils % (Manual) % Neutrophils # (Manual) (1.3-7.7) k/uL Lymphocytes # (Manual) (1.0-4.8) k/uL Monocytes # (Manual) (0-1.0) k/uL Eosinophils # (Manual) (0-0.7) k/uL Nucleated RBCs (0-0) /100 WBC Manual Slide Review RBC Morphology VBG pH (7.31-7.41) VBG pCO2 (37-51) mmHg VBG HCO3 (24-28) mmol/L Sodium (137-145) mmol/L Potassium (3.5-5.1) mmol/L Chloride (98-107) mmol/L Carbon Dioxide (22-30) mmol/L Anion Gap mmol/L BUN (7-17) mg/dL Creatinine (0.52-1.04) mg/dL Est GFR (CKD-EPI)AfAm (>60 ml/min/1.73 sqM) Est GFR (CKD-EPI)NonAf (>60 ml/min/1.73 sqM) Glucose (74-99) mg/dL POC Glucose (mg/dL) 195 H (75-99) mg/dL POC Glu Speech Communication Professor ID Olimpia [place] Lactic Ac Sepsis Rflx Plasma Lactic Acid [place] (0.7-2.0) mmol/L Calcium (8.4-10.2) mg/dL Phosphorus (2.5-4.5) mg/dL Magnesium (1.6-2.3) mg/dL Total Bilirubin (0.2-1.3) mg/dL AST (14-36) U/L ALT (4-34) U/L Alkaline Phosphatase (38-126) U/L Troponin I (0.000-0.034) ng/mL Total Protein (6.3-8.2) g/dL Albumin (3.5-5.0) g/dL Lipase (23-300) U/L Urine Color Urine Appearance (Clear) Urine pH (5.0-8.0) Ur Specific [place] (1.001-1.035) Urine Protein (Negative) Urine Glucose (UA) (Negative) Urine Ketones (Negative) Urine Blood (Negative) Urine Nitrite (Negative) Urine Bilirubin (Negative) Urine Urobilinogen (<2.0) mg/dL Ur Leukocyte Esterase (Negative) Urine HCG, Qual (Not Detectd) Acetone, Qual (Negative) Coronavirus (PCR) (Not Detectd) Trichomonas Ag (Rapid) (Negative) Critical Care Time Critical Care Time: Yes (60) <Jag Foster - Last Filed: 07/03/21 02:46> Critical Care Time: Multiple re-evaluations, evaluation of the patient, evaluating response to treatment. (Jag Foster) Disposition Time of Disposition: 00:01 Decision to Admit Reason: Admit from EC Decision Time: 00:01 <Jag Foster - Last Filed: 07/03/21 02:46> Is patient prescribed a controlled substance at d/c from ED?: No <Nelson Larose - Last Filed: 07/03/21 05:23> Clinical Impression: Pelvic inflammatory disease, Hyperglycemia due to type 1 diabetes mellitus, Malpositioned IUD, Severe sepsis, DKA (diabetic ketoacidoses), Sinus tachycardia, Nausea & vomiting Disposition: ADMITTED IP TO THIS HOSP Condition: Serious Referrals: None,Stated [Primary Care Provider] - 1-2 days
[2021-07-02 20:29] LABS: HCT 40.1 % (34.0-46.0); HGB 13.2 gm/dL (11.4-16.0); MCH 31.4 pg (25.0-35.0); MCV 95.1 fL (80.0-100.0); Mean Platelet Volume 7.6; Platelet Count 404 k/uL (150-450); RBC 4.21 m/uL (3.80-5.40); RDW 11.7 % (11.5-15.5); WBC 29.5 k/uL (3.8-10.6)
[2021-07-02 20:29] LABS: VBG PH 7.38 (7.31-7.41)
[2021-07-02 20:39] LABS: ALT 15 U/L (4-34); AST 28 U/L (14-36); African American GFR (CKD) >90 (>60 ml/min/1.73 sqM); Albumin 5.1 g/dL (3.5-5.0); Alkaline Phosphatase 82 U/L (38-126); Anion Gap 19 mmol/L; Blood Urea Nitrogen 17 mg/dL (7-17); Calcium 9.7 mg/dL (8.4-10.2); Carbon Dioxide 18 mmol/L (22-30); Chloride 99 mmol/L (98-107); Glucose 414 mg/dL (74-99); Lipase 68 U/L (23-300); Magnesium 1.6 mg/dL (1.6-2.3); Non-African American GFR(CKD) >90 (>60 ml/min/1.73 sqM); Sodium 136 mmol/L (137-145); Total Bilirubin 1.4 mg/dL (0.2-1.3); Total Protein 7.9 g/dL (6.3-8.2)
[2021-07-02] MEDS: LACTATED RINGERS 2,000 ML IV SCH ×2 (20:42→21:30)
--- NOTE | 2021-07-02 20:51 | XR ---
EXAMINATION TYPE: XR chest 2V DATE OF EXAM: 07/02/2021 8:33 PM COMPARISON: Chest radiographs from 04/04/2021 TECHNIQUE: XR chest 2V Frontal and lateral views of the chest. CLINICAL INDICATION:Female, 20 years old with history of DKA; FINDINGS: Lungs/Pleura: There is no evidence of pleural effusion, focal consolidation, or pneumothorax. Pulmonary vascularity: Unremarkable. Heart/mediastinum: Cardiomediastinal silhouette is unremarkable. Musculoskeletal: No acute osseous pathology. Scoliosis changes of the spine. IMPRESSION: No acute cardiopulmonary disease/process.
[2021-07-02] MEDS ORDERED: ONDANSETRON 4 MG/2 ML VIAL IVP STA (20:56)
[2021-07-02 20:57] LABS: Potassium 5.1 mmol/L (3.5-5.1)
[2021-07-02 21:02] LABS: Lymphocytes # (M) 2.36 k/uL (1.0-4.8); Monocytes # (M) 1.48 k/uL (0-1.0); Neutrophils # (M) 25.37 k/uL (1.3-7.7); Neutrophils % (M) 86 %; Nucleated Red Blood Cells 0 /100 WBC (0-0); Total Cells Counted 100
[2021-07-02 21:03] LABS: RBC Morphology Normal
[2021-07-02] MEDS ORDERED: SODIUM CHLORIDE 0.9% 1,000 ML IV STA (21:36)
[2021-07-02] MEDS ORDERED: VANCOMYCIN IV PER PHARMACY 1 EACH MISC MISCELLANE PRN (21:36)
[2021-07-02] MEDS ORDERED: metroNIDAZOLE-NS PMX 500 MG in SALINE 1 100ML.BAG IVPB STA (21:39)
[2021-07-02] MEDS ORDERED: VANCOMYCIN 1,250 MG in SODIUM CHLORIDE 0.9% 250 ML IVPB STA (21:44)
[2021-07-02] MEDS ORDERED: INSULIN ASPART (NovoLOG) 100 UNIT/ML VIAL SQ ONE (22:33)
[2021-07-02 22:49] LABS: Appearance,Urine Clear (Clear); Bilirubin,Urine Negative (Negative); Blood,Urine Negative (Negative); Color,Urine Light Yellow; Glucose,Urine (UA) 4+ (Negative); Leukocyte Esterase,Urine Negative (Negative); Nitrite,Urine Negative (Negative); Protein,Urine Negative (Negative); Specific Gravity,Urine 1.027 (1.001-1.035); Urobilinogen,Urine <2.0 mg/dL (<2.0)
[2021-07-02 22:58] LABS: Glucose,Whole Blood 417 mg/dL (75-99)
[2021-07-02] MEDS ORDERED: METOCLOPRAMIDE 5 MG/ML 2 ML VIAL IVP STA (23:00)
[2021-07-02] MEDS ORDERED: SODIUM CHLORIDE 0.9% 500 ML 500 ML IV ONE (23:01)
[2021-07-02] MEDS ORDERED: diphenhydrAMINE 50 MG/ML 1 ML VIAL IVP STA (23:01)
[2021-07-02] MEDS ORDERED: ACETAMINOPHEN IV (For NPO) 1,000 MG in SALINE 100 100ML.BAG IVPB STA (23:04)
--- NOTE | 2021-07-02 23:09 | CT ---
EXAMINATION TYPE: CT abdomen pelvis w con DATE OF EXAM: 07/02/2021 COMPARISON: None HISTORY: sepsis, vomiting and abdominal discomfort CT DLP: 666.5 mGycm Automated exposure control for dose reduction was used. CONTRAST: Performed with IV Contrast, patient injected with 100 mL of Isovue 300. Images obtained from the diaphragm to the floor of the pelvis with IV contrast. Lung bases are clear. There is no pleural effusion. Heart size is normal. There is no pericardial eff usion. Liver spleen stomach pancreas and gallbladder appear intact. The bile ducts are not dilated. There is no adrenal mass. Kidneys show satisfactory contrast opacification. There is no hydronephrosi s. Ureters are not dilated. There is no retroperitoneal adenopathy. Delayed images show normal renal excretion. The bladder distends smoothly. There is IUD noted. There is malposition of the IUD in the lower uterine segment and cervical canal. Appendix does not appear dilated. There is small amount of low-density free fluid in the cul-de-sac. There is no ascites or free air. No sign of a bowel obstruction. IMPRESSION: No evidence of appendicitis. Malposition of the IUD in the lower uterine segment. Tiny amount of low-density free fluid in the pel vis that could be physiologic. No pelvic mass.
[2021-07-02 23:23] LABS: Ketones,Urine 4+ (Negative)
[2021-07-03] MEDS ORDERED: SODIUM CHLORIDE 0.9% 1,500 ML IV ONE (00:30)
[2021-07-03 00:55] LABS: Glucose,Whole Blood 298 mg/dL (75-99)
[2021-07-03] MEDS ORDERED: Magnesium Replacement Protocol 1 EACH MISC MISCELLANE PRN (01:07)
[2021-07-03] MEDS ORDERED: INSULIN REGULAR BOLUS (FROM DRIP BAG) IV ONE (01:07)
[2021-07-03] MEDS ORDERED: Potassium Replacement Protocol 1 EACH MISC MISCELLANE PRN (01:07)
[2021-07-03] MEDS ORDERED: SODIUM CHLORIDE 0.9% 1,000 ML IV SCH (01:15)
[2021-07-03] MEDS ORDERED: INSULIN REGULAR 100 UNIT in SODIUM CHLORIDE 0.9% 100 ML IV SCH (01:15)
[2021-07-03 01:48] LABS: Glucose,Whole Blood 246 mg/dL (75-99)
[2021-07-03] MEDS: D5-0.45% NACL WITH KCL 20MEQ/L 1,000 ML IV SCH ×2 (01:51→08:30)
[2021-07-03 03:05] LABS: Glucose,Whole Blood 257 mg/dL (75-99)
[2021-07-03 03:46] LABS: Glucose,Whole Blood 217 mg/dL (75-99)
[2021-07-03 04:56] LABS: Glucose,Whole Blood 195 mg/dL (75-99)
[2021-07-03] MEDS ORDERED: ACETAMINOPHEN TAB 325 MG TAB PO PRN (05:19)
[2021-07-03] MEDS ORDERED: NALOXONE 0.4 MG/ML 1 ML VIAL IV PRN (05:19)
[2021-07-03] MEDS ORDERED: IBUPROFEN 400 MG TAB PO PRN (05:19)
[2021-07-03] MEDS ORDERED: metroNIDAZOLE-NS PMX 500 MG in SALINE 1 100ML.BAG IVPB SCH (06:00)
[2021-07-03 06:03] LABS: African American GFR (CKD) >90 (>60 ml/min/1.73 sqM); Anion Gap 9 mmol/L; Blood Urea Nitrogen 14 mg/dL (7-17); Carbon Dioxide 23 mmol/L (22-30); Chloride 106 mmol/L (98-107); Glucose 140 mg/dL (74-99); Non-African American GFR(CKD) >90 (>60 ml/min/1.73 sqM); Phosphorus 2.5 mg/dL (2.5-4.5); Potassium 4.1 mmol/L (3.5-5.1); Sodium 138 mmol/L (137-145)
[2021-07-03 06:12] LABS: Glucose,Whole Blood 160 mg/dL (75-99)
[2021-07-03] MEDS: SODIUM CHLORIDE 0.9% 1,000 ML IV SCH ×4 (06:18→20:57)
[2021-07-03 07:06] LABS: Glucose,Whole Blood 110 mg/dL (75-99)
[2021-07-03 08:07] LABS: Glucose,Whole Blood 77 mg/dL (75-99)
[2021-07-03 08:36] LABS: Glucose,Whole Blood 52 mg/dL (75-99)
[2021-07-03 09:31] LABS: Glucose,Whole Blood 161 mg/dL (75-99)
[2021-07-03] MEDS ORDERED: VANCOMYCIN 1,250 MG in SODIUM CHLORIDE 0.9% 250 ML IVPB SCH ×2 (10:00→13:00)
[2021-07-03] MEDS: PANTOPRAZOLE 40 MG/10 ML VIAL IV SCH (10:08)
[2021-07-03 10:09] LABS: Glucose,Whole Blood 236 mg/dL (75-99)
[2021-07-03 11:17] LABS: African American GFR (CKD) >90 (>60 ml/min/1.73 sqM); Anion Gap 11 mmol/L; Blood Urea Nitrogen 11 mg/dL (7-17); Carbon Dioxide 17 mmol/L (22-30); Chloride 109 mmol/L (98-107); Glucose 220 mg/dL (74-99); Non-African American GFR(CKD) >90 (>60 ml/min/1.73 sqM); Phosphorus 2.8 mg/dL (2.5-4.5); Potassium 4.4 mmol/L (3.5-5.1); Sodium 137 mmol/L (137-145)
[2021-07-03 11:27] LABS: Basophils % (A) 0 %; Eosinophils # (A) 0.1 k/uL (0-0.7); Eosinophils % (A) 1 %; Lymphocytes # (A) 1.4 k/uL (1.0-4.8); Lymphocytes % (A) 8 %; MCH 31.7 pg (25.0-35.0); MCV 96.1 fL (80.0-100.0); Mean Platelet Volume 8.3; Monocytes # (A) 1.2 k/uL (0-1.0); Monocytes % (A) 7 %; Neutrophils # (A) 14.3 k/uL (1.3-7.7); Neutrophils % (A) 82 %; Platelet Count 258 k/uL (150-450); RBC 2.81 m/uL (3.80-5.40); RDW 12.4 % (11.5-15.5); WBC 17.4 k/uL (3.8-10.6)
[2021-07-03 11:31] LABS: HGB 8.9 gm/dL (11.4-16.0)
[2021-07-03 12:29] LABS: Glucose,Whole Blood 365 mg/dL (75-99)
[2021-07-03] MEDS: ONDANSETRON 4 MG/2 ML VIAL IVP PRN (12:36)
[2021-07-03] MEDS: FAMOTIDINE 20 MG TAB PO SCH ×2 (12:36→20:57)
[2021-07-03] MEDS: INSULIN ASPART (NovoLOG) 100 UNIT/ML VIAL SQ SCH ×3 (12:36→20:58)
[2021-07-03] MEDS ORDERED: SODIUM CHLORIDE 0.9% 500 ML 500 ML IV ONE (13:35)
[2021-07-03] MEDS ORDERED: INSULIN DETEMIR (LEVEMIR) 100 UNIT/ML SYR SQ ONE (14:00)
--- NOTE | 2021-07-03 14:40 | P.CNPUL ---
History of Present Illness Consult date: 07/03/21 Requesting physician: Nelson Larose Chief complaint: High blood sugar, vomiting History of present illness: 20-year-old white female patient with history of type 1 diabetes mellitus, on insulin pump and Dexcom, history of smoking, anxiety, depression, who presented emergency department on 07/02/2021 for evaluation of nausea, vomiting, weakness, loss of appetite and elevated blood sugars. Patient reports some low-grade fevers several days ago. Patient has a previous history of diabetic ketoacidosis 2, with the last episode requiring intensive care admission. Patient reports several episodes of vomiting, some chest burning, no cough, phlegm production, no hematemesis, she did have one episode of diarrhea couple days ago which has resolved. Denies any headaches, denies any fever or chills. Her glucose on admission was 414, serum acetone was positive, patient did have elevated white count of 29.5, hemoglobin was 13.2, sodium is 136, potassium is 5.1, CO2 was 18, anion gap was 19, B1 and 17 creatinine 0.77, total bilirubin was 1.4, the rest of the LFTs were within normal limits, troponin was 0.014, lipase was normal at 68, lactic acid was mildly elevated at 2.3, urinalysis showed 4+ glucose and 4+ ketones but no evidence of infection, urine hCG was negative. Patient did report some increased vaginal discharge, and she had seen her primary care provider about that, and had vaginal cultures, but never heard about any positive results, and assumed it was all negative. Chest x-ray showed no acute cardiopulmonary disease process. CT of the abdomen and pelvis showing no evidence of appendicitis, malposition of the IUD in the lower uterine segment, tiny amount of low-density free fluid in the pelvis that could be physiologic, no pelvic mass. FIELD DIRECTOR consultation was requested. Patient was started on antibiotics with Rocephin, Flagyl and vancomycin. Genital cultures have been sent. Rapid Trichomonas was negative. Patient was fluid resuscitated she received a total of 2 L in IV fluid bolus of 0.9 normal saline, started on insulin infusion per DKA protocol. She responded quite well to IV fluids, and insulin infusion. This morning she is awake and alert, she is tolerating oral diet, no further nausea or vomiting, she did have an episode of hypoglycemia this morning with a blood sugar of 50, her insulin infusion has been discontinued, she is breathing comfortably, blood pressure is 90s over 40s and 50s, she is in sinus mechanism, rate is controlled, she is afebrile, leukocyt osis is improving on today's labs White blood cell count down to 17.4, hemoglobin is 8.9, sodium is 137, potassium is 4.4, chloride is 109, CO2 17, anion gap is down to 11, BUN is 11, creatinine 0.53. She is breathing comfortably. Denies any abdominal discomfort. Review of Systems All systems: negative Constitutional: Reports malaise, Reports weakness, Denies chills, Denies fever Eyes: denies blurred vision, denies pain Ears, nose, mouth and throat: Denies headache, Denies sore throat Cardiovascular: Denies chest pain, Denies shortness of breath Respiratory: Denies cough Gastrointestinal: Reports nausea, Reports vomiting, Denies abdominal pain, Denies diarrhea Genitourinary: Reports vaginal discharge, Denies dysuria, Denies hematuria Musculoskeletal: Denies myalgias Integumentary: Denies pruritus, Denies rash Neurological: Denies numbness, Denies weakness Psychiatric: Denies anxiety, Denies depression Endocrine: Denies fatigue, Denies weight change Past Medical History Past Medical History: Diabetes Mellitus Additional Past Medical History / Comment(s): IDDM type 1, pt thinks possible neuropathy bilateral feet, past HPV History of Any Multi-Drug Resistant Organisms: None Reported Past Surgical History: Adenoidectomy, Tonsillectomy Past Anesthesia/Blood Transfusion Reactions: No Reported Reaction Smoking Status: Current every day smoker - Past Family History Mother Family Medical History: No Reported History Additional Family Medical History / Comment(s): migraines Father Family Medical History: Hypertension Additional Family Medical History / Comment(s): Father is healthy Medications and Allergies Home Medications Medication Instructions Recorded Confirmed Type Glucagon [Baqsimi] 1 spray NASAL DIRECTED PRN 07/02/21 07/02/21 History Ibuprofen [Motrin] 800 mg PO Q8H PRN 07/02/21 07/02/21 History Insulin Aspart (For Pump) [NovoLOG 0.01 unit SQ-PUMP CONTINUOUS 07/02/21 07/02/21 History (For Pump)] Allergies Allergy/AdvReac Type Severity Reaction Status Date / Time No Known Allergies Allergy Verified 07/02/21 21:04 Physical Exam Vitals: Vital Signs Temp Pulse Resp BP Pulse Ox 07/03/21 11:00 98 18 93/47 98 07/03/21 10:00 93 18 95/56 97 07/03/21 08:32 93 18 99/65 98 07/03/21 08:00 95 18 92/54 96 07/03/21 07:00 98 18 101/66 07/03/21 06:00 88 16 95/57 96 07/03/21 05:00 105 H 16 94/57 07/03/21 04:33 98 16 113/70 96 07/03/21 04:19 99 16 105/66 96 07/03/21 04:00 106 H 18 96/59 96 07/03/21 03:00 100 16 95/42 07/03/21 02:45 105 H 16 94/49 07/03/21 02:00 102 H 16 90/46 07/03/21 01:22 92 18 107/58 07/03/21 01:04 98.1 F 103 H 18 100/47 95 07/03/21 00:03 102 H 18 86/45 100 07/02/21 22:43 99.2 F 115 H 16 89/51 100 07/02/21 21:42 98.6 F 110 H 18 86/50 99 07/02/21 21:30 111 H 07/02/21 19:30 98.2 F 127 H 22 146/72 99 Intake and Output 07/02/21 07/03/21 07/03/21 22:59 06:59 14:59 Intake Total 30.584 6.796 Balance 30.584 6.796 Intake: Intake, IV Titration 30.584 6.796 Amount Insulin Regular 100 unit 30.584 6.796 In Sodium Chloride 0.9% 100 ml @ 0.1 UNITS/KG/HR 6.414 mls/hr IV [id number] Rx#:[id number] Other: Weight 63.503 kg 63.503 kg GENERAL EXAM: Alert, very pleasant, 20-year-old white female, on room air, resting comfortably in bed in the emergency department satting 98%, comfortable in no apparent distress. HEAD: Normocephalic/atraumatic. EYES: Normal reaction of pupils, equal size. Conjunctiva pink, sclera white. NOSE: Clear with pink turbinates. THROAT: No erythema or exudates. NECK: No masses, no JVD, no thyroid enlargement, no adenopathy. CHEST: No chest wall deformity. Symmetrical expansion. LUNGS: Equal air entry with no crackles, wheeze, rhonchi or dullness. CVS: Regular rate and rhythm, normal S1 and S2, no gallops, no murmurs, no rubs ABDOMEN: Soft, nontender. No hepatosplenomegaly, normal bowel sounds, no guarding or rigidity. EXTREMITIES: No clubbing, no edema, no cyanosis, 2+ pulses and upper and lower extremities. MUSCULOSKELETAL: Muscle strength and tone normal. SPINE: No scoliosis or deformity SKIN: No rashes CENTRAL NERVOUS SYSTEM: Alert and oriented -3. No focal deficits, tone is normal in all 4 extremities. PSYCHIATRIC: Alert and oriented -3. Appropriate affect. Intact judgment and insight. Results - Laboratory Findings CBC and BMP: 07/03/21 11:23 07/03/21 10:17 Abnormal lab findings: Abnormal Labs 07/02/21 07/02/21 07/02/21 20:18 20:18 20:22 WBC 29.5 H RBC Hgb Hct Neutrophils # Neutrophils # (Manual) 25.37 H Monocytes # Monocytes # (Manual) 1.48 H VBG pCO2 36 L VBG HCO3 21 L Sodium 136 L Chloride Carbon Dioxide 18 L Glucose 414 H POC Glucose (mg/dL) Plasma Lactic Acid Candido Total Bilirubin 1.4 H Albumin 5.1 H Urine Glucose (UA) Urine Ketones 07/02/21 07/02/21 07/02/21 22:30 22:55 22:56 WBC RBC Hgb Hct Neutrophils # Neutrophils # (Manual) Monocytes # Monocytes # (Manual) VBG pCO2 VBG HCO3 Sodium Chloride Carbon Dioxide Glucose POC Glucose (mg/dL) 417 H Plasma Lactic Acid Candido 2.3 H* Total Bilirubin Albumin Urine Glucose (UA) 4+ H Urine Ketones 4+ H 07/03/21 07/03/21 07/03/21 00:38 01:15 01:28 WBC RBC Hgb Hct Neutrophils # Neutrophils # (Manual) Monocytes # Monocytes # (Manual) VBG pCO2 VBG HCO3 Sodium Chloride Carbon Dioxide Glucose POC Glucose (mg/dL) 298 H 246 H Plasma Lactic Acid Candido 2.5 H* Total Bilirubin Albumin Urine Glucose (UA) Urine Ketones 07/03/21 07/03/21 07/03/21 02:55 03:44 04:51 WBC RBC Hgb Hct Neutrophils # Neutrophils # (Manual) Monocytes # Monocytes # (Manual) VBG pCO2 VBG HCO3 Sodium Chloride Carbon Dioxide Glucose POC Glucose (mg/dL) 257 H 217 H 195 H Plasma Lactic Acid Candido Total Bilirubin Albumin Urine Glucose (UA) Urine Ketones 07/03/21 07/03/21 07/03/21 05:29 05:29 06:07 WBC RBC Hgb Hct Neutrophils # Neutrophils # (Manual) Monocytes # Monocytes # (Manual) VBG pCO2 VBG HCO3 Sodium Chloride Carbon Dioxide Glucose 140 H POC Glucose (mg/dL) 160 H Plasma Lactic Acid Candido 2.2 H* Total Bilirubin Albumin Urine Glucose (UA) Urine Ketones 07/03/21 07/03/21 07/03/21 07:02 08:33 09:29 WBC RBC Hgb Hct Neutrophils # Neutrophils # (Manual) Monocytes # Monocytes # (Manual) VBG pCO2 VBG HCO3 Sodium Chloride Carbon Dioxide Glucose POC Glucose (mg/dL) 110 H 52 L 161 H Plasma Lactic Acid Candido Total Bilirubin Albumin Urine Glucose (UA) Urine Ketones 07/03/21 07/03/21 07/03/21 10:07 10:17 11:23 WBC 17.4 H RBC 2.81 L Hgb 8.9 L D Hct 27.0 L Neutrophils # 14.3 H Neutrophils # (Manual) Monocytes # 1.2 H Monocytes # (Manual) VBG pCO2 VBG HCO3 Sodium Chloride 109 H Carbon Dioxide 17 L Glucose 220 H POC Glucose (mg/dL) 236 H Plasma Lactic Acid Candido Total Bilirubin Albumin Urine Glucose (UA) Urine Ketones 07/03/21 12:28 WBC RBC Hgb Hct Neutrophils # Neutrophils # (Manual) Monocytes # Monocytes # (Manual) VBG pCO2 VBG HCO3 Sodium Chloride Carbon Dioxide Glucose POC Glucose (mg/dL) 365 H Plasma Lactic Acid Candido Total Bilirubin Albumin Urine Glucose (UA) Urine Ketones - Diagnostic Findings Chest x-ray: report reviewed, image reviewed Additional studies: CT of the abdomen and pelvis, EKG reviewed Assessment and Plan Plan: Assessment: #1. Acute diabetic ketoacidosis #2. Nausea and vomiting, related to the above, resolved #3. Leukocytosis, under investigation, possibly reactive, urinalysis without sign of infection, chest x-ray showing no active cardiopulmonary disease #4. Hx of diabetes mellitus type 1 on insulin pump, and history of prior DVT #5. Vaginal discharge, under investigation, gentle cultures have been sent and pending #6. History of smoking cigarettes, and vaping #7. Anxiety and depression #8. Past HPV infection Plan: She was seen and evaluated in the emergency department This morning she is doing much better, anion gap has closed, Patient has been fluid resuscitated, she responded very well to IV fluids No nausea or vomiting, she is tolerating regular diet No complaints of shortness of breath no cough, no fever or chills She can continue on Rocephin, Flagyl and vancomycin will be discontinued pending further gentle cultures FIELD DIRECTOR consultation has been requested We'll continue to follow her clinical course I have personally seen and examined the patient, performed the documentation and the assessment and plan as written. Number of minutes spent on the visit: [15] Time with Patient: Greater than 30
[2021-07-03 17:28] LABS: Glucose,Whole Blood 299 mg/dL (75-99)
[2021-07-03 20:14] VITALS: RESP 18
[2021-07-03 20:45] LABS: Glucose,Whole Blood 203 mg/dL (75-99)
[2021-07-03] MEDS: DOXYCYCLINE 100 MG CAP PO SCH (20:57)
[2021-07-03] MEDS: HEPARIN SODIUM,PORCINE/PF 5,000 UNIT/0.5 ML SYRINGE SQ SCH (20:57)
[2021-07-03] MEDS: metroNIDAZOLE-NS PMX 500 MG in SALINE 1 100ML.BAG IVPB SCH (20:58)
[2021-07-03] MEDS ORDERED: INSULIN DETEMIR (LEVEMIR) 100 UNIT/ML SYR SQ SCH (21:00)
[2021-07-03] MEDS: LACTATED RINGERS 2,000 ML IV SCH (21:16)
[2021-07-03] MEDS ORDERED: TEMAZEPAM 15 MG CAP PO PRN (22:11)
[2021-07-03] MEDS: HYDROcodone/APAP 5-325MG 1 EACH TAB PO PRN (22:36)
--- NOTE | 2021-07-03 23:04 | P.HPIM ---
History of Present Illness H&P Date: 07/03/21 Chief Complaint: nausea vomiting and abdominal pain Patient is a 20-year-old female with a known history of diabetes type 1 on insulin pump, history of HPV infection and currently everyday smoker presents to ER with complaints of nausea vomiting and generalized weakness. Patient also states that her sugars were running high at home. Patient was previously admitted to the hospital with DKA. She has been having nausea and vomiting since yesterday. Denied any complaints of fever at home. She was also complaining of burning in the chest. Denied any hematemesis or melena. Patient states that she did have diarrhea about 2 days ago. Denies any cough or sputum production. Patient was complaining of vaginal discharge also. No headache or neck stiffness. Chest x-ray showed no acute cardiopulmonary process CT of abdominal pelvis showed no evidence of appendicitis. Malposition of the IUD in the lower uterine segment. Tiny amount of low-density pleural fluid in t he pelvis that could be physiologic. No pelvic mass. On admission patient was tachycardic. Pulse ox 99% on room air. Laboratory data showed WBC 29.5 hemoglobin 13.2 and platelets 404 and neutrophils 25.3 ABG showed pH 7.38 PCO2 36 and bicarb 21 Sodium 136 potassium 5.1 chloride 99 bicarb is 18 anion gap 19 BUN 17 and creatinine 0.77 Blood sugar was 414 lactic acid 2.3 total bilirubin level is 1.4 albumin 5.4 urinalysis showed 4+ glucose and 1+ ketones. Coronavirus not detected. Positive. Review of Systems Constitutional: Patient denies any fever or chills . No generalized weakness or weight loss. Abdomen: Patient was complaining of nausea vomiting and abdominal pain. No diarrhea currently. Cardiovascular: Patient denies any chest pain or short of breath no palpitations. Respiratory: patient denied any cough or sputum production. No shortness of breath Neurologic: Patient denied any numbness or tingling headache. Musculoskeletal: Patient denies any complaints of joint swelling or deformity. Skin: Negative Psychiatric: Negative Endocrine: No heat or cold intolerance. No recent weight gain. Genitourinary: No dysuria or hematuria. All other 14 point ROS negative except the above Past Medical History Past Medical History: Diabetes Mellitus Additional Past Medical History / Comment(s): IDDM type 1, pt thinks possible neuropathy bilateral feet, past HPV History of Any Multi-Drug Resistant Organisms: None Reported Past Surgical History: Adenoidectomy, Tonsillectomy Past Anesthesia/Blood Transfusion Reactions: No Reported Reaction Smoking Status: Current every day smoker - Past Family History Mother Family Medical History: No Reported History Additional Family Medical History / Comment(s): migraines Father Family Medical History: Hypertension Additional Family Medical History / Comment(s): Father is healthy Medications and Allergies Home Medications Medication Instructions Recorded Confirmed Type Glucagon [Baqsimi] 1 spray NASAL DIRECTED PRN 07/02/21 07/02/21 History Ibuprofen [Motrin] 800 mg PO Q8H PRN 07/02/21 07/02/21 History Insulin Aspart (For Pump) [NovoLOG 0.01 unit SQ-PUMP CONTINUOUS 07/02/21 07/02/21 History (For Pump)] Allergies Allergy/AdvReac Type Severity Reaction Status Date / Time No Known Allergies Allergy Verified 07/02/21 21:04 Physical Exam Vitals: Vital Signs Temp Pulse Resp BP Pulse Ox 07/03/21 10:00 93 18 95/56 97 07/03/21 08:32 93 18 99/65 98 07/03/21 08:00 95 18 92/54 96 07/03/21 07:00 98 18 101/66 07/03/21 06:00 88 16 95/57 96 07/03/21 05:00 105 H 16 94/57 07/03/21 04:33 98 16 113/70 96 07/03/21 04:19 99 16 105/66 96 07/03/21 04:00 106 H 18 96/59 96 07/03/21 03:00 100 16 95/42 07/03/21 02:45 105 H 16 94/49 07/03/21 02:00 102 H 16 90/46 07/03/21 01:22 92 18 107/58 07/03/21 01:04 98.1 F 103 H 18 100/47 95 07/03/21 00:03 102 H 18 86/45 100 07/02/21 22:43 99.2 F 115 H 16 89/51 100 07/02/21 21:42 98.6 F 110 H 18 86/50 99 07/02/21 21:30 111 H 07/02/21 19:30 98.2 F 127 H 22 146/72 99 Intake and Output 05/07/03/21 07/03/21 22:59 06:59 14:59 Intake Total 30.584 6.796 Balance 30.584 6.796 Intake: Intake, IV Titration 30.584 6.796 Amount Insulin Regular 100 unit 30.584 6.796 In Sodium Chloride 0.9% 100 ml @ 0.1 UNITS/KG/HR 6.414 mls/hr IV [facility][id number] [facility] Rx#:[id number] Other: Weight 63.503 kg 63.503 kg PHYSICAL EXAMINATION: Patient is lying in the bed comfortably, no acute distress, awake alert and oriented.. HEENT: Normocephalic. Neck is supple. Pupils reactive. Nostrils clear. Oral cavity is moist. Neck reveals no JVD, carotid bruits, or thyromegaly. CHEST EXAMINATION: Trachea is central. Symmetrical expansion. Lung bardales clear to auscultation and percussion. CARDIAC: Normal S1, S2 with no gallops. No murmurs ABDOMEN: Soft. Bowel sounds normal. No organomegaly. No abdominal bruits. Extremities: reveal no edema. No clubbing or cyanosis Neurologically awake, alert, oriented x3 with well-coordinated movements. No focal deficits noted Skin: No rash or skin lesions. Psychiatric: Cooperative. Nonsuicidal, anxious Musculoskeletal: No joint swelling or deformity. Normal range of motion. Results CBC & Chem 7: 07/03/21 11:23 07/03/21 10:17 Labs: Abnormal Lab Results - Last 24 Hours (Table) 07/02/21 07/02/21 07/02/21 Range/Units 20:18 20:18 20:22 WBC 29.5 H (3.8-10.6) k/uL Neutrophils # (Manual) 25.37 H (1.3-7.7) k/uL Monocytes # (Manual) 1.48 H (0-1.0) k/uL VBG pCO2 36 L (37-51) mmHg VBG HCO3 21 L (24-28) mmol/L Sodium 136 L (137-145) mmol/L Carbon Dioxide 18 L (22-30) mmol/L Glucose 414 H (74-99) mg/dL POC Glucose (mg/dL) (75-99) mg/dL Plasma Lactic Acid Candido (0.7-2.0) mmol/L Total Bilirubin 1.4 H (0.2-1.3) mg/dL Albumin 5.1 H (3.5-5.0) g/dL Urine Glucose (UA) (Negative) Urine Ketones (Negative) 07/02/21 07/02/21 07/02/21 Range/Units 22:30 22:55 22:56 WBC (3.8-10.6) k/uL Neutrophils # (Manual) (1.3-7.7) k/uL Monocytes # (Manual) (0-1.0) k/uL VBG pCO2 (37-51) mmHg VBG HCO3 (24-28) mmol/L Sodium (137-145) mmol/L Carbon Dioxide (22-30) mmol/L Glucose (74-99) mg/dL POC Glucose (mg/dL) 417 H (75-99) mg/dL Plasma Lactic Acid Candido 2.3 H* (0.7-2.0) mmol/L Total Bilirubin (0.2-1.3) mg/dL Albumin (3.5-5.0) g/dL Urine Glucose (UA) 4+ H (Negative) Urine Ketones 4+ H (Negative) 07/03/21 07/03/21 07/03/21 Range/Units 00:38 01:15 01:28 WBC (3.8-10.6) k/uL Neutrophils # (Manual) (1.3-7.7) k/uL Monocytes # (Manual) (0-1.0) k/uL VBG pCO2 (37-51) mmHg VBG HCO3 (24-28) mmol/L Sodium (137-145) mmol/L Carbon Dioxide (22-30) mmol/L Glucose (74-99) mg/dL POC Glucose (mg/dL) 298 H 246 H (75-99) mg/dL Plasma Lactic Acid Candido 2.5 H* (0.7-2.0) mmol/L Total Bilirubin (0.2-1.3) mg/dL Albumin (3.5-5.0) g/dL Urine Glucose (UA) (Negative) Urine Ketones (Negative) 07/03/21 07/03/21 07/03/21 Range/Units 02:55 03:44 04:51 WBC (3.8-10.6) k/uL Neutrophils # (Manual) (1.3-7.7) k/uL Monocytes # (Manual) (0-1.0) k/uL VBG pCO2 (37-51) mmHg VBG HCO3 (24-28) mmol/L Sodium (137-145) mmol/L Carbon Dioxide (22-30) mmol/L Glucose (74-99) mg/dL POC Glucose (mg/dL) 257 H 217 H 195 H (75-99) mg/dL Plasma Lactic Acid Candido (0.7-2.0) mmol/L Total Bilirubin (0.2-1.3) mg/dL Albumin (3.5-5.0) g/dL Urine Glucose (UA) (Negative) Urine Ketones (Negative) 07/03/21 07/03/21 07/03/21 Range/Units 05:29 05:29 06:07 WBC (3.8-10.6) k/uL Neutrophils # (Manual) (1.3-7.7) k/uL Monocytes # (Manual) (0-1.0) k/uL VBG pCO2 (37-51) mmHg VBG HCO3 (24-28) mmol/L Sodium (137-145) mmol/L Carbon Dioxide (22-30) mmol/L Glucose 140 H (74-99) mg/dL POC Glucose (mg/dL) 160 H (75-99) mg/dL Plasma Lactic Acid Candido 2.2 H* (0.7-2.0) mmol/L Total Bilirubin (0.2-1.3) mg/dL Albumin (3.5-5.0) g/dL Urine Glucose (UA) (Negative) Urine Ketones (Negative) 07/03/21 07/03/21 07/03/21 Range/Units 07:02 08:33 09:29 WBC (3.8-10.6) k/uL Neutrophils # (Manual) (1.3-7.7) k/uL Monocytes # (Manual) (0-1.0) k/uL VBG pCO2 (37-51) mmHg VBG HCO3 (24-28) mmol/L Sodium (137-145) mmol/L Carbon Dioxide (22-30) mmol/L Glucose (74-99) mg/dL POC Glucose (mg/dL) 110 H 52 L 161 H (75-99) mg/dL Plasma Lactic Acid Candido (0.7-2.0) mmol/L Total Bilirubin (0.2-1.3) mg/dL Albumin (3.5-5.0) g/dL Urine Glucose (UA) (Negative) Urine Ketones (Negative) 07/03/21 Range/Units 10:07 WBC (3.8-10.6) k/uL Neutrophils # (Manual) (1.3-7.7) k/uL Monocytes # (Manual) (0-1.0) k/uL VBG pCO2 (37-51) mmHg VBG HCO3 (24-28) mmol/L Sodium (137-145) mmol/L Carbon Dioxide (22-30) mmol/L Glucose (74-99) mg/dL POC Glucose (mg/dL) 236 H (75-99) mg/dL Plasma Lactic Acid Candido (0.7-2.0) mmol/L Total Bilirubin (0.2-1.3) mg/dL Albumin (3.5-5.0) g/dL Urine Glucose (UA) (Negative) Urine Ketones (Negative) Microbiology - Last 24 Hours (Table) 07/03/21 00:03 Genital Culture - Preliminary Cervix Thrombosis Risk Factor Assmnt - DVT/VTE Prophylaxis DVT/VTE Prophylaxis: Pharmacologic Prophylaxis ordered - Choose All That Apply Any of the Below Risk Factors Present?: Yes Each Factor Represents 1 point: Sepsis (< 1month) Other Risk Factors: No Other congenital or acquired thrombophilia - If yes, enter type in comment: No Thrombosis Risk Factor Assessment Total Risk Factor Score: 1 Thrombosis Risk Factor Assessment Level: Low Risk Assessment and Plan Assessment: Acute diabetic ketoacidosis Intractable nausea vomiting and generalized weakness secondary above. Vaginal discharge. Rule out STIs. Possible PID cannot be excluded. Patient states that she was recently treated but test was negative. Malposition of IUD Leukocytosis likely reactive. Chest x-ray and UA negative for infection. Follow-up blood cultures. Hyperglycemia with uncontrolled diabetes type 1 patient is on insulin pump at home Cigarette smoking/vaping Diabetic peripheral neuropathy DVT prophylaxis with heparin subcu GI proph. Plan: Patient will be continued on IVF. Was on insulin drip and anion gap is closed currently. Patient will be continued on subcu insulin and will be started on Levemir and follow-up blood sugars closely. Patient was given a dose of ceftriaxone and vancomycin in the ER. Continue ceftriaxone and Flagyl and doxycycline for possible PID. Follow-up blood cultures and Chlamydia and gonorrhea PCR. Continue to follow closely. Smoking cessation has been counseled. Follow-up CBC and CMP tomorrow. Time with Patient: Greater than 30
[2021-07-04] MEDS: SODIUM CHLORIDE 0.9% 1,000 ML IV SCH ×3 (02:58→11:32)
[2021-07-04 05:54] LABS: Glucose,Whole Blood 56 mg/dL (75-99)
[2021-07-04] MEDS: INSULIN ASPART (NovoLOG) 100 UNIT/ML VIAL SQ SCH ×3 (05:57→17:51)
[2021-07-04 06:48] LABS: Glucose,Whole Blood 54 mg/dL (75-99)
[2021-07-04 06:49] LABS: Glucose,Whole Blood 87 mg/dL (75-99)
[2021-07-04] MEDS: metroNIDAZOLE-NS PMX 500 MG in SALINE 1 100ML.BAG IVPB SCH (08:47)
[2021-07-04] MEDS: PANTOPRAZOLE 40 MG/10 ML VIAL IV SCH (08:48)
[2021-07-04] MEDS: FAMOTIDINE 20 MG TAB PO SCH (08:49)
[2021-07-04] MEDS: DOXYCYCLINE 100 MG CAP PO SCH (08:49)
[2021-07-04] MEDS: HYDROcodone/APAP 5-325MG 1 EACH TAB PO PRN (08:49)
[2021-07-04] MEDS: HEPARIN SODIUM,PORCINE/PF 5,000 UNIT/0.5 ML SYRINGE SQ SCH (08:50)
[2021-07-04] MEDS ORDERED: VANCOMYCIN TROUGH DUE 1 EACH MISC MISCELLANE ONE (09:00)
[2021-07-04] MEDS ORDERED: SODIUM CHLORIDE 0.9% 1,000 ML IV SCH (10:30)
[2021-07-04] MEDS: ONDANSETRON 4 MG/2 ML VIAL IVP PRN ×2 (10:34→17:50)
--- NOTE | 2021-07-04 11:44 | P.PN ---
Subjective Progress Note Date: 07/04/21 Principal diagnosis: acute diabetic ketoacidosis 20-year-old white female patient with history of type 1 diabetes mellitus, on insulin pump and Dexcom, history of smoking, anxiety, depression, who presented emergency department on 07/02/2021 for evaluation of nausea, vomiting, weakness, loss of appetite and elevated blood sugars. Patient reports some low-grade fevers several days ago. Patient has a previous history of diabetic ketoacidosis 2, with the last episode requiring intensive care admission. Patient reports several episodes of vomiting, some chest burning, no cough, phlegm production, no hematemesis, she did have one episode of diarrhea couple days ago which has resolved. Denies any headaches, denies any fever or chills. Her glucose on admission was 414, serum acetone was positive, patient did have elevated white count of 29.5, hemoglobin was 13.2, sodium is 136, potassium is 5.1, CO2 was 18, anion gap was 19, B1 and 17 creatinine 0.77, total bilirubin was 1.4, the rest of the LFTs were within normal limits, troponin was 0.014, lipase was normal at 68, lactic acid was mildly elevated at 2.3, urinalysis showed 4+ glucose and 4+ ketones but no evidence of infection, urine hCG was negative. Patient did report some increased vaginal discharge, and she had seen her primary care provider about that, and had vaginal cultures, but never heard about any positive results, and assumed it was all negative. Chest x-ray showed no acute cardiopulmonary disease process. CT of the abdomen and pelvis showing no evidence of appendicitis, malposition of the IUD in the lower uterine segment, tiny amount of low-density free fluid in the pelvis that could be physiologic, no pelvic mass. RESEARCH DEVELOPMENT MANAGER consultation was requested. Patient was started on antibiotics with Rocephin, Flagyl and vancomycin. Genital cultures have been sent. Rapid Trichomonas was negative. Patient was fluid resuscitated she received a total of 2 L in IV fluid bolus of 0.9 normal saline, started on insulin infusion per DKA protocol. She responded quite well to IV fluids, and insulin infusion. This morning she is awake and alert, she is tolerating oral diet, no further nausea or vomiting, she did have an episode of hypoglycemia this morning with a blood sugar of 50, her insulin infusion has been discontinued, she is breathing comfortably, blood pressure is 90s over 40s and 50s, she is in sinus mechanism, rate is controlled, she is afebrile, leukocytosis is improving on today's labs White blood cell count down to 17.4, hemoglobin is 8.9, sodium is 137, potassium is 4.4, chloride is 109, CO2 17, anion gap is down to 11, BUN is 11, creatinine 0.53. She is breathing comfort ably. Denies any abdominal discomfort. reevaluated today on 07/04/21, patient seems to be doing much better today compared to yesterday. Patient is not in any distress, however she is anxious about her condition, mostly because the patient is not sure whether she has sepsis or she has any other issues other than DKA. Explained to the patient that at this point is not clear that she has infection so far all the cultures are negative, and she is yet to be seen by gynecology on consultation, patient is empirically on antibiotics. Objective - Vital Signs Vital signs: Vital Signs Temp 99.1 F 07/04/21 08:35 Pulse 96 07/04/21 08:35 Resp 18 07/04/21 08:35 BP 123/75 07/04/21 08:35 Pulse Ox 95 07/04/21 08:35 Intake & Output 07/03/21 07/04/21 07/04/21 18:59 06:59 18:59 Intake Total 6.796 500 0 Balance 6.796 500 0 Weight 63.503 kg Intake: Intake, IV Titration 6.796 100 Amount Insulin Regular 100 unit 6.796 In Sodium Chloride 0.9% 100 ml @ 0.1 UNITS/KG/HR 6.414 mls/hr IV .[id number] [facility] Rx#:[id number] metroNIDAZOLE-NS PMX 500 100 mg In Saline 1 100ml.bag @ 100 mls/hr IVPB Q12HR [facility] Rx#:[id number] Oral 400 0 Other: Voiding Method Toilet Toilet # Voids 3 - Exam Physical Exam: Revealed a 20-year-old female in no distress, just anxious and emotional, tearful. Head: Atraumatic, normocephalic. HEENT:[Neck is supple.] [No neck masses.] [No thyromegaly.] [No JVD.] Chest: [Clear throughout, no crackles, no rhonchi, no wheezes.] Cardiac Exam: [Normal S1 and S2, no S3 gallop, no murmur.] Abdomen: [Soft, nontender, no megaly, no rebound, no guarding, normal bowel sounds.] Extremities: [No clubbing, no edema, no cyanosis.] Neurological Exam: [No focal neurologic deficit.]alert oriented 3. Psychiatric: Anxious mood, tearful, emotional, Skin: No rashes - Labs CBC & Chem 7: 07/03/21 11:23 07/03/21 10:17 Labs: Abnormal Lab Results - Last 24 Hours (Table) 07/03/21 07/03/21 07/03/21 Range/Units 12:28 17:26 20:08 POC Glucose (mg/dL) 365 H 299 H 203 H (75-99) mg/dL 07/04/21 07/04/21 Range/Units 05:52 06:12 POC Glucose (mg/dL) 56 L 54 L (75-99) mg/dL Microbiology - Last 24 Hours (Table) 07/02/21 22:55 Blood Culture - Preliminary Blood No Growth after 24 hours 07/03/21 00:03 Genital Culture - Preliminary Cervix Assessment and Plan Assessment: impression: Acute diabetic ketoacidosis Possible pelvic inflammatory disease with vaginal discharge. Being under investigation. Generalized anxiety disorder. Recommendation: Continue present supportive care measures. Continue empiric antibiotics until seen by gynecology. Will sign off and see the patient on when necessary basis.
[2021-07-04 12:17] LABS: Glucose,Whole Blood 149 mg/dL (75-99)
[2021-07-04 12:21] VITALS: BP 121/77; PULSE 88; TEMP 98.9
[2021-07-04 12:28] LABS: Basophils # (A) 0.1 k/uL (0-0.2); Basophils % (A) 0 %; Eosinophils # (A) 0.1 k/uL (0-0.7); Eosinophils % (A) 0 %; HCT 36.4 % (34.0-46.0); HGB 11.7 gm/dL (11.4-16.0); Lymphocytes # (A) 1.6 k/uL (1.0-4.8); Lymphocytes % (A) 9 %; MCHC 32.1 g/dL (31.0-37.0); MCV 96.6 fL (80.0-100.0); Mean Platelet Volume 7.4; Monocytes # (A) 0.8 k/uL (0-1.0); Monocytes % (A) 4 %; Neutrophils # (A) 15.6 k/uL (1.3-7.7); Neutrophils % (A) 86 %; Platelet Count 292 k/uL (150-450); RBC 3.77 m/uL (3.80-5.40); RDW 11.8 % (11.5-15.5); WBC 18.2 k/uL (3.8-10.6)
--- NOTE | 2021-07-04 12:36 | P.OBCN ---
History of Present Illness Consult date: 07/04/21 Reason for consult: other (low lying IUD noted on Ct scan ) Chief complaint: DKA, low-lying IUD History of present illness: 20-year-old 0 that was admitted to the hospital in acute DKA. Patient has a history of type 1 diabetes controlled with an insulin pump and she does use dexcom for blood sugar management. Patient states she does have regular menstrual cycles every month lasting 4-7 days moderate in flow. She had menarche at age 11, patient states she does see a WOOD CASKET ASSEMBLER regularly at a [facility] facility on . Patient states she had a recent visit where IUD strings were present and visualized on speculum exam, she had cultures done at that time. She states she never heard the results of these cultures. Patient did note some vaginal discharge upon admission. Genital culture was obtained and is pending currently. Patient was admitted to the hospital initially for DKA, CAT scan was preformed and a low- lying IUD was appreciated. I was consulted regarding this low-lying IUD and pos sible relation to sepsis. WOOD CASKET ASSEMBLER history She is a 0, she states her last menstrual period was June 18 normal in nature. Review of Systems Constitutional: Denies chills, Denies fatigue, Denies fever Ears, nose, mouth and throat: Denies headache Cardiovascular: Denies leg edema Genitourinary: Denies Menstruation: Reports period normal Past Medical History Past Medical History: Diabetes Mellitus Additional Past Medical History / Comment(s): IDDM type 1, pt thinks possible ne uropathy bilateral feet, past HPV History of Any Multi-Drug Resistant Organisms: None Reported Past Surgical History: Adenoidectomy, Tonsillectomy Past Anesthesia/Blood Transfusion Reactions: No Reported Reaction Smoking Status: Current every day smoker - Past Family History Mother Family Medical History: No Reported History Additional Family Medical History / Comment(s): migraines Father Family Medical History: Hypertension Additional Family Medical History / Comment(s): Father is healthy Medications and Allergies Home Medications Medication Instructions Recorded Confirmed Type Glucagon [Baqsimi] 1 spray NASAL DIRECTED PRN 07/02/21 07/02/21 History Ibuprofen [Motrin] 800 mg PO Q8H PRN 07/02/21 07/02/21 History Insulin Aspart (For Pump) [NovoLOG 0.01 unit SQ-PUMP CONTINUOUS 07/02/21 07/02/21 History (For Pump)] Allergies Allergy/AdvReac Type Severity Reaction Status Date / Time No Known Allergies Allergy Verified 07/02/21 21:04 Exam Osteopathic Statement: *. No significant issues noted on an osteopathic st ructural exam other than those noted in the History and Physical/Consult. Vital Signs Temp Pulse Pulse Resp BP BP Pulse Ox 07/04/21 12:00 98.9 F 88 18 121/77 95 07/04/21 08:35 99.1 F 96 18 123/75 95 07/04/21 08:00 18 07/04/21 05:57 134/70 07/04/21 03:02 98.3 F 86 18 93/52 95 07/04/21 01:48 18 07/03/21 23:49 99.1 F 97 18 118/74 100 07/03/21 20:00 99.7 F H 95 18 121/69 98 07/03/21 18:40 16 07/03/21 17:54 98.9 F 101 H 18 104/52 97 07/03/21 14:44 98.9 F 99 18 107/69 98 Intake and Output 07/03/21 07/04/21 07/04/21 22:59 06:59 14:59 Intake Total 500 0 Balance 500 0 Intake: Intake, IV Titration 100 Amount metroNIDAZOLE-NS PMX 500 100 mg In Saline 1 100ml.bag @ 100 mls/hr IVPB Q12HR [facility] Rx#:[id number] Oral 400 0 Other: Voiding Method Toilet Toilet Toilet # Voids 3 Targeted physical exam is performed in general this a well-nourished well-develo ped non patient in no acute distress, breathing is nonlabored, heart has regular rhythm, abdomen is soft, and her urinary exam is deferred given findings on CAT scan. Results Result Diagrams: 07/03/21 11:23 07/03/21 10:17 Abnormal Lab Results - Last 24 Hours (Table) 07/03/21 07/03/21 07/03/21 Range/Units 12:28 17:26 20:08 POC Glucose (mg/dL) 365 H 299 H 203 H (75-99) mg/dL 07/04/21 07/04/21 07/04/21 Range/Units 05:52 06:12 12:15 POC Glucose (mg/dL) 56 L 54 L 149 H (75-99) mg/dL Microbiology - Last 24 Hours (Table) 07/02/21 22:55 Blood Culture - Preliminary Blood No Growth after 24 hours 07/03/21 00:03 Genital Culture - Preliminary Cervix Assessment and Plan (1) Malpositioned IUD Current Visit: Yes Status: Acute Code(s): T83.32XA - DISPLACEMENT OF INTRAUTERINE CONTRACEPTIVE DEVICE, INIT SNOMED Code(s): 23645378222823557 Plan: 20-year-old non female admitted for DKA with vaginal discharge questionable concern for PID. Patient is without complaints for me this morning. She states she's had her IUD a proximally 1-1/2 years without issue. Menstrual cycles are regular. She does see a WOOD CASKET ASSEMBLER regularly for annual exams. Patient is counseled on follow-up with her primary WOOD CASKET ASSEMBLER for management of low-lying ParaGard IUD. Patient states understanding. She denies concerns QUESTIONS are answered. Nurse was at the bedside questions were answered with her in addition.
[2021-07-04 12:52] LABS: ALT 15 U/L (4-34); AST 22 U/L (14-36); African American GFR (CKD) >90 (>60 ml/min/1.73 sqM); Albumin 3.3 g/dL (3.5-5.0); Alkaline Phosphatase 58 U/L (38-126); Anion Gap 7 mmol/L; Blood Urea Nitrogen 6 mg/dL (7-17); Calcium 7.9 mg/dL (8.4-10.2); Carbon Dioxide 20 mmol/L (22-30); Chloride 111 mmol/L (98-107); Glucose 142 mg/dL (74-99); Non-African American GFR(CKD) >90 (>60 ml/min/1.73 sqM); Potassium 3.9 mmol/L (3.5-5.1); Sodium 138 mmol/L (137-145); Total Bilirubin 0.3 mg/dL (0.2-1.3); Total Protein 5.4 g/dL (6.3-8.2)
[2021-07-04 14:31] VITALS: BMI 23.3
[2021-07-04 16:48] LABS: Glucose,Whole Blood 230 mg/dL (75-99)
[2021-07-04] MEDS ORDERED: INSULIN DETEMIR (LEVEMIR) 100 UNIT/ML SYR SQ SCH (21:00)
[2021-07-06 14:44] LABS: C. trachomatis,PCR Negative (Neg,Equiv); Chlamydia trachomatis Source Vagina; N. gonorrhoeae,PCR Negative (Neg,Equiv); Neisseria Source Vagina
--- NOTE | 2021-07-15 15:08 | P.DS ---
Providers Date of admission: 07/03/21 05:19 Expected date of discharge: 07/04/21 Attending physician: Victorino Mix Consults: 07/03/21 14:13 Consult Physician Urgent Consulting Provider: Mary Restrepo Consult Reason/Comments: malpositioned IUD Do you want consulting provider notified?: Yes Primary care physician: Stated None Hospital Course: Discharge diagnosis Acute diabetic ketoacidosis Intractable nausea vomiting and generalized weakness secondary above. Vaginal discharge. Rule out STIs. Possible PID cannot be excluded. Patient states that she was recently treated but test was negative. Malposition of IUD Leukocytosis likely reactive. Chest x-ray and UA negative for infection. Follow-up blood cultures. Hyperglycemia with uncontrolled diabetes type 1 patient is on insulin pump at home Cigarette smoking/vaping Diabetic peripheral neuropathy DVT prophylaxis with heparin subcu GI proph. Hospital course Patient is a 20-year-old female with a known history of diabetes type 1 on insulin pump, history of HPV infection and currently everyday smoker presents to ER with complaints of nausea vomiting and generalized weakness. Patient also states that her sugars were running high at home. Patient was previously admitted to the hospital with DKA. She has been having nausea and vomiting since yesterday. Denied any complaints of fever at home. She was also complaining of burning in the chest. Denied any hematemesis or melena. Patient states that she did have diarrhea about 2 days ago. Denies any cough or sputum production. Patient was complaining of vaginal discharge also. No headache or neck stiffness. Chest x-ray showed no acute cardiopulmonary process CT of abdominal pelvis showed no evidence of appendicitis. Malposition of the IUD in the lower uterine segment. Tiny amount of low-density pleural fluid in the pelvis that could be physiologic. No pelvic mass. On admission patient was tachycardic. Pulse ox 99% on room air. Laboratory data showed WBC 29.5 hemoglobin 13.2 and platelets 404 and neutrophils 25.3 ABG showed pH 7.38 PCO2 36 and bicarb 21 Sodium 136 potassium 5.1 chloride 99 bicarb is 18 anion gap 19 BUN 17 and creatinine 0.77 Blood sugar was 414 lactic acid 2.3 total bilirubin level is 1.4 albumin 5.4 urinalysis showed 4+ glucose and 1+ ketones. Coronavirus not detected. Acetone Positive. 07/04/2021 Patient is currently resting in bed. Awake alert oriented x3. Abdominal pain is much improved. No complaints of chest pain or shortness breath. Does have some nausea but no episodes of vomiting. Patient has been afebrile and afebrile overnight. No headache or dizziness or lightheadedness. Patient was seen by BEEF SPECIALIST and recommends follow-up as outpatient with her BEEF SPECIALIST physician. Advised blood cultures have been negative. Chlamydia, gonorrhea and trichomonas negative. Follow-up final culture report. Patient will be continued on antibiotics, doxycycline and metronidazole for the next 12 days. Otherwise DKA has resolved. Laboratory showed WBC 18.2 hemoglobin 11.7 and platelets 292 sodium 138 potassium 3.9 chloride 101 bicarb 20 BUN 16 creatinine 0.56 and blood sugar is 142 and albumin 3.3. Patient wishes to be discharged home today. PHYSICAL EXAMINATION: Patient is lying in the bed comfortably, no acute distress, awake alert and oriented.. HEENT: Normocephalic. Neck is supple. Pupils reactive. Nostrils clear. Oral cavity is moist. Neck reveals no JVD, carotid bruits, or thyromegaly. CHEST EXAMINATION: Trachea is central. Symmetrical expansion. Lung bardales clear to auscultation and percussion. CARDIAC: Normal S1, S2 with no gallops. No murmurs ABDOMEN: Soft. Mild lower abdominal tenderness.Bowel sounds normal. No organomegaly. No abdominal bruits. Extremities: reveal no edema. No clubbing or cyanosis Neurologically awake, alert, oriented x3 with well-coordinated movements. No focal deficits noted Skin: No rash or skin lesions. Psychiatric: Cooperative. Nonsuicidal Musculoskeletal: No joint swelling or deformity. Normal range of motion - Vital Signs Vital signs: Vital Signs Temp 99.1 F 07/04/21 08:35 Pulse 96 07/04/21 08:35 Resp 18 07/04/21 08:35 BP 123/75 07/04/21 08:35 Pulse Ox 95 07/04/21 08:35 Intake & Output 07/03/21 07/04/21 07/04/21 18:59 06:59 18:59 Intake Total 6.796 500 0 Balance 6.796 500 0 Weight 63.503 kg Intake: Intake, IV Titration 6.796 100 Amount Insulin Regular 100 unit 6.796 In Sodium Chloride 0.9% 100 ml @ 0.1 UNITS/KG/HR 6.414 mls/hr IV .[id number] [facility] Rx#:[id number] metroNIDAZOLE-NS PMX 500 100 mg In Saline 1 100ml.bag @ 100 mls/hr IVPB Q12HR [facility] Rx#:[id number] Oral 400 0 Other: Voiding Method Toilet Toilet # Voids 3 - Labs CBC & Chem 7: 07/03/21 11:23 07/03/21 10:17 Labs: Abnormal Lab Results - Last 24 Hours (Table) 07/03/21 07/03/21 07/03/21 Range/Units 10:17 11:23 12:28 WBC 17.4 H (3.8-10.6) k/uL RBC 2.81 L (3.80-5.40) m/uL Hgb 8.9 L D (11.4-16.0) gm/dL Hct 27.0 L (34.0-46.0) % Neutrophils # 14.3 H (1.3-7.7) k/uL Monocytes # 1.2 H (0-1.0) k/uL Chloride 109 H (98-107) mmol/L Carbon Dioxide 17 L (22-30) mmol/L Glucose 220 H (74-99) mg/dL POC Glucose (mg/dL) 365 H (75-99) mg/dL 07/03/21 07/03/21 07/04/21 Range/Units 17:26 20:08 05:52 WBC (3.8-10.6) k/uL RBC (3.80-5.40) m/uL Hgb (11.4-16.0) gm/dL Hct (34.0-46.0) % Neutrophils # (1.3-7.7) k/uL Monocytes # (0-1.0) k/uL Chloride (98-107) mmol/L Carbon Dioxide (22-30) mmol/L Glucose (74-99) mg/dL POC Glucose (mg/dL) 299 H 203 H 56 L (75-99) mg/dL 07/04/21 Range/Units 06:12 WBC (3.8-10.6) k/uL RBC (3.80-5.40) m/uL Hgb (11.4-16.0) gm/dL Hct (34.0-46.0) % Neutrophils # (1.3-7.7) k/uL Monocytes # (0-1.0) k/uL Chloride (98-107) mmol/L Carbon Dioxide (22-30) mmol/L Glucose (74-99) mg/dL POC Glucose (mg/dL) 54 L (75-99) mg/dL Microbiology - Last 24 Hours (Table) 07/02/21 22:55 Blood Culture - Preliminary Blood No Growth after 24 hours 07/03/21 00:03 Genital Culture - Preliminary Cervix Time taken greater than 35 minutes in patient care out of which more than 50% was spent on counseling and coordination of care. Patient Condition at Discharge: Serious Plan - Discharge Summary Discharge Rx Participant: No New Discharge Prescriptions: New metroNIDAZOLE [Flagyl] 500 mg PO BID 12 Days #24 tab Doxycycline [Vibramycin] 100 mg PO BID 12 Days #24 cap Continue Ibuprofen [Motrin] 800 mg PO Q8H PRN PRN Reason: Pain Or Fever > 100.5 Insulin Aspart (For Pump) [NovoLOG (For Pump)] 0.01 unit SQ-PUMP CONTINUOUS Glucagon [Baqsimi] 1 spray NASAL DIRECTED PRN PRN Reason: low blood sugar Discharge Medication List Glucagon [Baqsimi] 1 spray NASAL DIRECTED PRN 07/02/21 [History] Ibuprofen [Motrin] 800 mg PO Q8H PRN 07/02/21 [History] Insulin Aspart (For Pump) [NovoLOG (For Pump)] 0.01 unit SQ-PUMP CONTINUOUS 07/02/21 [History] Doxycycline [Vibramycin] 100 mg PO BID 12 Days #24 cap 07/04/21 [Rx] metroNIDAZOLE [Flagyl] 500 mg PO BID 12 Days #24 tab 07/04/21 [Rx] Follow up Appointment(s)/Referral(s): None,Stated [Primary Care Provider] - 1-2 days (Please schedule a follow up visit with your primary and OBGYN. ) Patient Instructions/Handouts: Diabetic Ketoacidosis (DC), Sepsis (DC) Discharge Disposition: HOME SELF-CARE
== END 2021-07-04 18:14 | disposition home or self-care (01) ==
LOC: EC 18:52 → INTOOBSV 07-03 05:19 → 3SCARD 07-03 05:19 → UNDODISIN 07-03 17:28
PROVIDERS: ADMIT Hospitalist; ATTEND Hospitalist
DX: E10.10 Type 1 diabetes mellitus with ketoacidosis without coma (principal); T83.32XA Displacement of intrauterine contraceptive device, initial encounter; N89.8 Other specified noninflammatory disorders of vagina; D72.829 Elevated white blood cell count, unspecified; R00.0 Tachycardia, unspecified; E10.42 Type 1 diabetes mellitus with diabetic polyneuropathy; E10.65 Type 1 diabetes mellitus with hyperglycemia; F17.210 Nicotine dependence, cigarettes, uncomplicated; F17.290 Nicotine dependence, other tobacco product, uncomplicated; F41.1 Generalized anxiety disorder; F31.9 Bipolar disorder, unspecified; Y76.2 Prosthetic and other implants, materials and accessory obstetric and gynecological devices associated with adverse incidents; Z20.822 Contact with and (suspected) exposure to COVID-19; Z79.4 Long term (current) use of insulin; Z71.6 Tobacco abuse counseling; Z86.718 Personal history of other venous thrombosis and embolism; Z96.41 Presence of insulin pump (external) (internal); Z86.19 Personal history of other infectious and parasitic diseases; Z98.890 Other specified postprocedural states; Z82.49 Family history of ischemic heart disease and other diseases of the circulatory system; Z82.0 Family history of epilepsy and other diseases of the nervous system
CPT/HCPCS: 96376 ×2; 96366 ×3; 96372 ×2; 96368; 96361; 96365; 96367 ×2; 96374; 96375 ×2; 99291; 36415 ×2; 93005; 80051; 80053 ×2; 82565; 82803; 82009; 83605 ×2; 83690; 83735; 84100 ×2; 82947; 84520; 84484; 85025 ×3; 81003; 81025; 87040; 87808; 87491; 87591; 87070; 87635; 71046; 74177; G0378 ×2; J3370; J1200; J2765; J2405 ×3; J0696 ×2; J0131; C9113 ×2; Q9967; J1644 ×2

== ENCOUNTER 2021-12-04 18:15 | Emergency (ER) | payer OTHER ==
[2021-12-04] MEDS ORDERED: SODIUM CHLORIDE 0.9% 1,000 ML IV STA (18:43)
[2021-12-04] MEDS ORDERED: SODIUM CHLORIDE 0.9% 1,000 ML IV ONE (18:46)
--- NOTE | 2021-12-04 18:47 | ED ---
Dizziness HPI - General Chief Complaint: Dizziness Stated Complaint: Tachycardia Time Seen by Provider: 12/04/21 18:34 Source: patient, RN notes reviewed Mode of arrival: ambulatory Limitations: no limitations - History of Present Illness Initial Comments: This is a pleasant 21-year-old female who presents to the emergency department complaining of lightheadedness, palpitations, and intermittent upper abdominal pain. Patient states for the past 2 months she has had several episodes such as this. Patient states she gets intermittent right upper quadrant pain which last anywhere from several minutes to even a few hours. Patient had this again today and actually resolved. Patient still feeling some palpitations in the form pounding heartbeat at this time. Patient also states she can sometimes see a pulsatile sensation in her upper abdomen which comes and goes. Patient is a known type I, insulin controlled diabetic who has been treated since 2006. Patient currently being worked up for gastroparesis. No headache, no fever or chills, no changes in vision or hearing, no sore throat or difficulty with speech, no neck pain, no chest pain or shortness of breath, no abdominal pain, no nausea or vomiting, no changes in urination or bowel m ovements, no numbness or tingling, no extremity pain, no skin rashes or lesions. Past medical, surgical, social, and family history reviewed. Complaint: lightheadedness - Related Data Home Medications Medication Instructions Recorded Confirmed Glucagon [Baqsimi] 1 spray NASAL DIRECTED PRN 07/02/21 07/02/21 Ibuprofen [Motrin] 800 mg PO Q8H PRN 07/02/21 07/02/21 Insulin Aspart (For Pump) [NovoLOG 0.01 unit SQ-PUMP CONTINUOUS 07/02/21 07/02/21 (For Pump)] Previous Rx's Medication Instructions Recorded Doxycycline [Vibramycin] 100 mg PO BID 12 Days #24 cap 07/04/21 metroNIDAZOLE [Flagyl] 500 mg PO BID 12 Days #24 tab 07/04/21 Metoclopramide [Reglan] 10 mg PO ACHS #30 tab 12/04/21 Allergies Allergy/AdvReac Type Severity Reaction Status Date / Time No Known Allergies Allergy Verified 07/02/21 21:04 Review of Systems ROS Statement: Those systems with pertinent positive or pertinent negative responses have been documented in the HPI. ROS Other: All systems not noted in ROS Statement are negative. Past Medical History Past Medical History: Diabetes Mellitus Additional Past Medical History / Comment(s): IDDM type 1, pt thinks possible neuropathy bilateral feet, past HPV History of Any Multi-Drug Resistant Organisms: None Reported Past Surgical History: Adenoidectomy, Tonsillectomy Past Anesthesia/Blood Transfusion Reactions: No Reported Reaction Past Psychological History: Anxiety, Bipolar, Depression Smoking Status: Current every day smoker - Past Family History Mother Family Medical History: No Reported History Additional Family Medical History / Comment(s): migraines Father Family Medical History: Hypertension Additional Family Medical History / Comment(s): Father is healthy General Exam - General Exam Comments Initial Comments: Pleasant 20-year-old female and mild distress. Patient appears to be somewhat anxious. Patient noted to be tachycardic. Limitations: no limitations General appearance: anxious Head exam: Present: atraumatic, normocephalic, normal inspection Eye exam: Present: normal appearance, PERRL, EOMI. Absent: scleral icterus, conjunctival injection, periorbital swelling ENT exam: Present: normal exam, mucous membranes moist Neck exam: Present: normal inspection. Absent: tenderness, meningismus, lymphadenopathy Respiratory exam: Present: normal lung sounds bilaterally. Absent: respiratory distress, wheezes, rales, rhonchi, stridor Cardiovascular Exam: Present: regular rate, normal rhythm, tachycardia, normal heart sounds. Absent: systolic murmur, diastolic murmur, rubs, gallop, clicks GI/Abdominal exam: Present: soft, tenderness (Right upper quadrant), normal bowel sounds. Absent: distended, rebound, rigid Extremities exam: Present: normal inspection, full ROM, normal capillary refill. Absent: tenderness, pedal edema, joint swelling, calf tenderness Back exam: Present: normal inspection Neurological exam: Present: alert, oriented X3, CN II-XII intact Psychiatric exam: Present: normal affect, normal mood Skin exam: Present: warm, dry, intact, normal color. Absent: rash Course Vital Signs 12/04/21 12/04/21 12/04/21 18:17 18:59 20:09 Temperature 98.6 F Pulse Rate 116 H 66 Pulse Rate [ 101 H Sitting Mobility Specialist] Pulse Rate [ 115 H Standing Mobility Specialist ] Pulse Rate [ 90 Supine Mobility Specialist] Respiratory 20 18 16 Rate Blood Pressure 132/93 112/77 Blood Pressure 125/101 [Right Arm Sitting] Blood Pressure 132/82 [Right Arm Standing] Blood Pressure 122/82 [Right Arm Supine] O2 Sat by Pulse 98 99 98 Oximetry - Reevaluation(s) Reevaluation #1: 12/04/21 20:56 Medical record is reviewed Symptoms are improved here in the emergency department, currently awaiting urinalysis. Patient is informed of results and questions answered Patient in no distress Note that the patient's orthostatic vital signs were positive with regards to heart rate, patient went from 90 supine to 115 standing. Reevaluation #2: 12/04/21 21:04 I did add on a COVID-19 test. We'll also try the patient on a by mouth dose of Reglan as I believe gastroparesis may cause some of the patient's symptomology. EKG Findings - EKG Comments: EKG Findings:: EKG done at 1826 and reviewed by the ED attending physician reveals sinus rhythm with a rate of 94. Normal axis. Normal intervals. Normal QRS morphology. No acute ST or T wave changes. When compared to the previous study from 07/02/2021, there is no significant change. Patient was noted to be tachycardic on that study. Medical Decision Making - Medical Decision Making She presents with recurrent lightheadedness, palpitations, and right upper quadrant pain. Differential diagnosis includes gastroparesis, gallbladder disease, pancreatitis, given the recurrent symptomology associated palpitations, no make disease also possible. Pots syndrome, pulmonary embolism, or thyroid disease also within the differential. Noted patient is perc 1. Patient denying chance of . Patient states her last Pap smear was about 3 weeks ago. Patient due to start within the next week. COVID-19 test is pending. Patient much improved after IV hydration. We'll have the patient follow-up with cardiology. 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 Of course other autonomic disturbances are possible. Also with the patient's long-standing type 1 diabetes, gastroparesis within the differential. Reglan prescribed. Treatment plan discussed with the patient. Follow-up discussed. All questions answered. Patient voices understanding and concurs. Patient was told to return to the ER for any signs or symptoms worsen. Told to return immediately if any other problems arise. All questions answered. Treatment plan discussed. Patient in agreement Every effort has been made to ensure accuracy of this dictation. However, due to the limitations of electronic medical records and dictation devices, errors in charting still occur. The case was discussed in detail with ED attending physician. Presentation, findings, treatment plan discussed in detail. Supervising physician Dr. Vidal - Lab Data Result diagrams: 12/04/21 19:44 12/04/21 19:44 Lab Results 12/04/21 12/04/21 12/04/21 Range/Units 19:44 19:44 19:44 WBC 12.6 H (3.8-10.6) k/uL RBC 4.39 (3.80-5.40) m/uL Hgb 13.5 (11.4-16.0) gm/dL Hct 39.0 (34.0-46.0) % MCV 88.7 (80.0-100.0) fL MCH 30.8 (25.0-35.0) pg MCHC 34.7 (31.0-37.0) g/dL RDW 12.0 (11.5-15.5) % Plt Count 318 (150-450) k/uL MPV 7.5 Neutrophils % 79 % Lymphocytes % 14 % Monocytes % 5 % Eosinophils % 1 % Basophils % 1 % Neutrophils # 9.9 H (1.3-7.7) k/uL Lymphocytes # 1.8 (1.0-4.8) k/uL Monocytes # 0.6 (0-1.0) k/uL Eosinophils # 0.1 (0-0.7) k/uL Basophils # 0.1 (0-0.2) k/uL D-Dimer <0.17 (<0.60) mg/L FEU Sodium 135 L (137-145) mmol/L Potassium 4.1 (3.5-5.1) mmol/L Chloride 99 (98-107) mmol/L Carbon Dioxide 23 (22-30) mmol/L Anion Gap 13 mmol/L BUN 13 (7-17) mg/dL Creatinine 0.62 (0.52-1.04) mg/dL Est GFR (CKD-EPI)AfAm >90 (>60 ml/min/1.73 sqM) Est GFR (CKD-EPI)NonAf >90 (>60 ml/min/1.73 sqM) Glucose 159 H (74-99) mg/dL Calcium 9.4 (8.4-10.2) mg/dL Magnesium 1.8 (1.6-2.3) mg/dL Total Bilirubin 0.6 (0.2-1.3) mg/dL AST 16 (14-36) U/L ALT 12 (4-34) U/L Alkaline Phosphatase 73 (38-126) U/L Troponin I (0.000-0.034) ng/mL Total Protein 7.2 (6.3-8.2) g/dL Albumin 4.9 (3.5-5.0) g/dL Lipase 49 (23-300) U/L TSH 0.930 (0.465-4.680) mIU/L Urine Color Urine Appearance (Clear) Urine pH (5.0-8.0) Ur Specific [place] (1.001-1.035) Urine Protein (Negative) Urine Glucose (UA) (Negative) Urine Ketones (Negative) Urine Blood (Negative) Urine Nitrite (Negative) Urine Bilirubin (Negative) Urine Urobilinogen (<2.0) mg/dL Ur Leukocyte Esterase (Negative) Urine RBC (0-5) /hpf Urine WBC (0-5) /hpf Ur Squamous Epith Cells (0-4) /hpf Urine Bacteria (None) /hpf Urine Mucus (None) /hpf Urine HCG, Qual (Not Detectd) Acetone, Qual Positive (Negative) 12/04/21 12/04/21 12/04/21 Range/Units 19:44 20:52 20:52 WBC (3.8-10.6) k/uL RBC (3.80-5.40) m/uL Hgb (11.4-16.0) gm/dL Hct (34.0-46.0) % MCV (80.0-100.0) fL MCH (25.0-35.0) pg MCHC (31.0-37.0) g/dL RDW (11.5-15.5) % Plt Count (150-450) k/uL MPV Neutrophils % % Lymphocytes % % Monocytes % % Eosinophils % % Basophils % % Neutrophils # (1.3-7.7) k/uL Lymphocytes # (1.0-4.8) k/uL Monocytes # (0-1.0) k/uL Eosinophils # (0-0.7) k/uL Basophils # (0-0.2) k/uL D-Dimer (<0.60) mg/L FEU Sodium (137-145) mmol/L Potassium (3.5-5.1) mmol/L Chloride (98-107) mmol/L Carbon Dioxide (22-30) mmol/L Anion Gap mmol/L BUN (7-17) mg/dL Creatinine (0.52-1.04) mg/dL Est GFR (CKD-EPI)AfAm (>60 ml/min/1.73 sqM) Est GFR (CKD-EPI)NonAf (>60 ml/min/1.73 sqM) Glucose (74-99) mg/dL Calcium (8.4-10.2) mg/dL Magnesium (1.6-2.3) mg/dL Total Bilirubin (0.2-1.3) mg/dL AST (14-36) U/L ALT (4-34) U/L Alkaline Phosphatase (38-126) U/L Troponin I <0.012 (0.000-0.034) ng/mL Total Protein (6.3-8.2) g/dL Albumin (3.5-5.0) g/dL Lipase (23-300) U/L TSH (0.465-4.680) mIU/L Urine Color Yellow Urine Appearance Clear (Clear) Urine pH 6.5 (5.0-8.0) Ur Specific [place] 1.033 (1.001-1.035) Urine Protein 1+ H (Negative) Urine Glucose (UA) Negative (Negative) Urine Ketones 3+ H (Negative) Urine Blood Negative (Negative) Urine Nitrite Negative (Negative) Urine Bilirubin Negative (Negative) Urine Urobilinogen 6.0 (<2.0) mg/dL Ur Leukocyte Esterase Negative (Negative) Urine RBC 1 (0-5) /hpf Urine WBC 1 (0-5) /hpf Ur Squamous Epith Cells <1 (0-4) /hpf Urine Bacteria Rare H (None) /hpf Urine Mucus Many H (None) /hpf Urine HCG, Qual Not Detected (Not Detectd) Acetone, Qual (Negative) - Radiology Data Radiology results: report reviewed, image reviewed Disposition Clinical Impression: Postural orthostatic tachycardia syndrome, Palpitations, Gastroparesis Narrative: Recurrent upper abdominal pain, possible gastroparesis, orthostatic with tachycardia noted. Possible pots syndrome. Disposition: HOME SELF-CARE Condition: Good Instructions (If sedation given, give patient instructions): Heart Palpitations (ED), Diabetic Gastroparesis (DC), Dizziness (ED) Additional Instructions: Call at 8 AM Tuesday to schedule an appointment with the supervisor parking lot. Follow-up with your regular physician as directed. Return to the ER immediately if any symptoms worsen, new symptoms arise, or any other problems develop. Prescriptions: Metoclopramide [Reglan] 10 mg PO ACHS #30 tab Is patient prescribed a controlled substance at d/c from ED?: No Referrals: Buzz Esposito MD [Primary Care Provider] - 1-2 days Finn Joy DO [STAFF PHYSICIAN] - 12/07/21 8:00 am Time of Disposition: 21:35
[2021-12-04 19:54] LABS: Basophils # (A) 0.1 k/uL (0-0.2); Basophils % (A) 1 %; Eosinophils # (A) 0.1 k/uL (0-0.7); Eosinophils % (A) 1 %; HGB 13.5 gm/dL (11.4-16.0); Lymphocytes # (A) 1.8 k/uL (1.0-4.8); Lymphocytes % (A) 14 %; MCH 30.8 pg (25.0-35.0); MCHC 34.7 g/dL (31.0-37.0); MCV 88.7 fL (80.0-100.0); Mean Platelet Volume 7.5; Monocytes # (A) 0.6 k/uL (0-1.0); Monocytes % (A) 5 %; Neutrophils # (A) 9.9 k/uL (1.3-7.7); Neutrophils % (A) 79 %; Platelet Count 318 k/uL (150-450); RBC 4.39 m/uL (3.80-5.40); WBC 12.6 k/uL (3.8-10.6)
[2021-12-04 20:00] LABS: ALT 12 U/L (4-34); AST 16 U/L (14-36); African American GFR (CKD) >90 (>60 ml/min/1.73 sqM); Albumin 4.9 g/dL (3.5-5.0); Alkaline Phosphatase 73 U/L (38-126); Anion Gap 13 mmol/L; Blood Urea Nitrogen 13 mg/dL (7-17); Calcium 9.4 mg/dL (8.4-10.2); Carbon Dioxide 23 mmol/L (22-30); Chloride 99 mmol/L (98-107); Glucose 159 mg/dL (74-99); Lipase 49 U/L (23-300); Magnesium 1.8 mg/dL (1.6-2.3); Non-African American GFR(CKD) >90 (>60 ml/min/1.73 sqM); Potassium 4.1 mmol/L (3.5-5.1); Sodium 135 mmol/L (137-145); Total Bilirubin 0.6 mg/dL (0.2-1.3); Total Protein 7.2 g/dL (6.3-8.2)
[2021-12-04 20:10] VITALS: RESP 16
--- NOTE | 2021-12-04 20:16 | XR ---
EXAMINATION TYPE: XR chest 2V DATE OF EXAM: 12/04/2021 COMPARISON: 07/02/2021 HISTORY: Abdominal pain TECHNIQUE: 2 views FINDINGS: Heart and mediastinum are normal. Lungs are clear. Diaphragm is normal. Bony thorax is norm al. There is thoracic dextroscoliosis. IMPRESSION: No active cardiopulmonary disease. Normal heart. No change.
--- NOTE | 2021-12-04 20:17 | XR ---
EXAMINATION TYPE: XR KUB DATE OF EXAM: 12/04/2021 COMPARISON: NONE HISTORY: Abdominal pain TECHNIQUE: 2 views FINDINGS: There is mild lumbar levoscoliosis. Lung bases are clear. No pleural effusion. The bowel ga s pattern is normal. No sign of intestinal obstruction or pneumoperitoneum. Fecal pattern is normal. No pathologic calcification. IMPRESSION: Nonacute abdomen.
--- NOTE | 2021-12-04 20:44 | US ---
EXAMINATION TYPE: US gallbladder DATE OF EXAM: 12/04/2021 COMPARISON: NONE CLINICAL HISTORY: Right upper quadrant abdominal pain. RUQ pain, nausea TECHNIQUE: Multiple sonographic images of the right upper quadrant are obtained. FINDINGS: EXAM MEASUREMENTS: Liver Length: 14.4 cm Gallbladder Wall: 0.3 cm CBD: 0.2 cm Right Kidney: 11.0 x 4.1 x 5.3 cm Pancreas: wnl Liver: wnl Gallbladder: no evidence of stones Evidence for sonographic Galo's sign: no CBD: wnl Right Kidney: no evidence of hydronephrosis or mass IMPRESSION: Normal exam. No gallstones or dilated ducts.
[2021-12-04] MEDS ORDERED: METOCLOPRAMIDE 10 MG TAB PO STA (21:04)
[2021-12-04 21:05] LABS: Appearance,Urine Clear (Clear); Bacteria,Urine Rare /hpf; Bilirubin,Urine Negative (Negative); Blood,Urine Negative (Negative); Color,Urine Yellow; Glucose,Urine (UA) Negative (Negative); Leukocyte Esterase,Urine Negative (Negative); Mucus,Urine Many /hpf; Nitrite,Urine Negative (Negative); PH, Urine 6.5 (5.0-8.0); Protein,Urine 1+ (Negative); RBC,Urine 1 /hpf (0-5); Specific Gravity,Urine 1.033 (1.001-1.035); Squamous Epithelial Cell,Urine <1 /hpf (0-4); WBC,Urine 1 /hpf (0-5)
[2021-12-04 21:31] LABS: Ketones,Urine 3+ (Negative)
[2021-12-04] MEDS ORDERED: IBUPROFEN 400 MG TAB PO STA (21:44)
[2021-12-04] MEDS ORDERED: ACETAMINOPHEN TAB 500 MG TAB PO STA (21:44)
[2021-12-04 22:16] VITALS: BP 132/78; PULSE 69; TEMP 97.9
== END 2021-12-04 22:41 | disposition home or self-care (01) ==
LOC: EC 18:15
DX: G90.A Postural orthostatic tachycardia syndrome [POTS] (principal); R00.2 Palpitations; R00.0 Tachycardia, unspecified; K31.84 Gastroparesis; E11.8 Type 2 diabetes mellitus with unspecified complications; F17.200 Nicotine dependence, unspecified, uncomplicated; Z79.4 Long term (current) use of insulin; Z79.899 Other long term (current) drug therapy; Z20.822 Contact with and (suspected) exposure to COVID-19
CPT/HCPCS: 36415; 71046; 74018; 76705; 80053; 81001; 81025; 82009; 83690; 83735; 84443; 84484; 85025; 85379; 87635; 96360; 96361; 99285

== ENCOUNTER → 2022-04-29 | Outpatient (CLI) | payer OTHER ==
--- NOTE | 2022-04-30 10:23 | CA ---
Transthoracic Echo Report Name: Rocío Villatoro Age: 21 Gender: F : 2000 Exam Date: 04/29/2022 12:38 Exam Location: [facility] Ht (in): 65 Wt (lb): 135 Ordering Physician: Buzz Esposito MD Attending/Referring Phys: Abbi Anderson PAC Senior Mechanical Designer Cornelia Ellis RDCS Procedure CPT: Indications: R00.0 tachycardia Cardiac Hx: Technical Quality: Fair Contrast 1: Total Dose (mL): Contrast 2: Total Dose (mL): MEASUREMENTS (Male / Female) Normal Values 2D ECHO LV Diastolic Diameter PLAX 4.1 cm 4.2 - 5.9 / 3.9 - 5.3 cm LV Systolic Diameter PLAX 2.6 cm IVS Diastolic Thickness 0.9 cm 0.6 - 1.0 / 0.6 - 0.9 cm LVPW Diastolic Thickness 1.0 cm 0.6 - 1.0 / 0.6 - 0.9 cm LV Relative Wall Thickness 0.5 RV Internal Dim ED PLAX 3.3 cm LA Volume 39.3 cm??? 18 - 58 / 22 - 52 cm??? M-MODE Aortic Root Diameter MM 2.2 cm LA Systolic Diameter MM 3.9 cm LA Ao Ratio MM 1.8 AV Cusp Separation MM 1.9 cm DOPPLER AV Peak Velocity 125.6 cm/s AV Peak Gradient 6.3 mmHg AV Mean Velocity 91.3 cm/s AV Mean Gradient 3.6 mmHg AV Velocity Time Integral 27.8 cm LVOT Peak Velocity 99.7 cm/s LVOT Peak Gradient 4.0 mmHg LVOT Velocity Time Integral 25.5 cm MV Area PHT 3.9 cm??? Mitral E Point Velocity 118.7 cm/s Mitral A Point Velocity 88.5 cm/s Mitral E to A Ratio 1.3 MV Deceleration Time 193.9 ms MV E' Velocity 13.0 cm/s Mitral E to MV E' Ratio 9.1 TR Peak Velocity 226.3 cm/s TR Peak Gradient 20.5 mmHg Right Ventricular Systolic Press 24.2 mmHg FINDINGS Left Ventricle Normal left ventricular size, wall thickness, systolic function with no obvious regional wall motion abnormalities. Normal left ventricular diastolic filling pattern for age. The ejection fraction is visually estimated at 55-60 %. Right Ventricle The right ventricle is normal in size and function. Right Atrium The right atrium is normal in size. Left Atrium The left atrium is normal in size. Mitral Valve Structurally normal mitral valve without significant stenosis or prolapse. There is no mitral regurgitation. Aortic Valve Structurally normal aortic valve without significant sclerosis or stenosis. There is no aortic regurgitation. Tricuspid Valve Structurally normal tricuspid valve without significant stenosis. Pulmonary artery systolic pressure is normal. Mild tricuspid regurgitation. Pulmonic Valve Structurally normal pulmonic valve without significant stenosis. There is no pulmonic regurgitation. Pericardium Normal pericardium without effusion. Aorta Normal aortic root dimension. CONCLUSIONS Normal LV systolic function and normal RV systolic function Overall normal intracardiac valves Previewed by: Dr. Tanner Gr MD (Electronically Signed) Final Date: 30 April 2022 10:22
== END | disposition home or self-care (01) ==
LOC: RADECHMAIN 13:24
PROVIDERS: ATTEND Family Medicine
DX: R00.0 Tachycardia, unspecified (principal)
CPT/HCPCS: 93306

== ENCOUNTER 2022-07-14 13:27 | Emergency (ER) | payer OTHER ==
[2022-07-14] MEDS ORDERED: SODIUM CHLORIDE 0.9% 500 ML 500 ML IV STA (13:52)
--- NOTE | 2022-07-14 13:55 | ED ---
Abdominal Pain HPI - General Source: patient, family Mode of arrival: ambulatory Limitations: no limitations <Felix Pena - Last Filed: 07/14/22 16:14> <Debbi Vidal - Last Filed: 07/14/22 22:33> - General Chief Complaint: Abdominal Pain Stated Complaint: possible stomach flu Time Seen by Provider: 07/14/22 13:45 - History of Present Illness Initial Comments: 21-year-old female with past medical history significant for type 1 diabetes presenting to the ED with the chief complaint of nausea and vomiting. Patient states that last night at approximately 3:30 AM became nauseous and started to vomit. Patient states that she has had 10 episodes of nonbloody nonbilious emesis since onset. Associated abdominal pain. Pain is constant, and achy in nature. No alleviating/exacerbating factors. Last bowel movement today. Nonbloody and nondiarrheal. No other complaints (Felix Pena) - Related Data Home Medications Medication Instructions Recorded Confirmed Glucagon [Baqsimi] 1 spray NASAL DIRECTED PRN 07/02/21 12/04/21 Famotidine [Pepcid] 20 mg PO BID 12/04/21 12/04/21 Insulin Aspart [NovoLOG Flexpen] See Protocol SQ ACHS PRN MDD 100 12/04/21 12/04/21 UNITS Insulin Glargine,Hum.rec.anlog 30 units SQ HS 12/04/21 12/04/21 [Lantus Solostar Pen] Omeprazole 40 mg PO DAILY 12/04/21 12/04/21 Previous Rx's Medication Instructions Recorded Metoclopramide [Reglan] 10 mg PO ACHS #30 tab 12/04/21 Ondansetron Odt [Zofran Odt] 4 mg PO Q8HR PRN #20 tab 07/14/22 Allergies Allergy/AdvReac Type Severity Reaction Status Date / Time No Known Allergies Allergy Verified 07/14/22 13:31 Review of Systems ROS Other: All systems not noted in ROS Statement are negative. <Felix Pean - Last Filed: 07/14/22 16:14> ROS Other: All systems not noted in ROS Statement are negative. <Debbi Vidal - Last Filed: 07/14/22 22:33> ROS Statement: Those systems with pertinent positive or pertinent negative responses have been documented in the HPI. Past Medical History Past Medical History: Diabetes Mellitus Additional Past Medical History / Comment(s): IDDM type 1, pt thinks possible neuropathy bilateral feet, past HPV History of Any Multi-Drug Resistant Organisms: None Reported Past Surgical History: Adenoidectomy, Tonsillectomy Past Anesthesia/Blood Transfusion Reactions: No Reported Reaction Past Psychological History: Anxiety, Bipolar, Depression Smoking Status: Current every day smoker, Vaper Past Alcohol Use History: None Reported Past Drug Use History: Marijuana - Past Family History Mother Family Medical History: No Reported History Additional Family Medical History / Comment(s): migraines Father Family Medical History: Hypertension Additional Family Medical History / Comment(s): Father is healthy <Felix Pena - Last Filed: 07/14/22 16:14> General Exam Limitations: no limitations General appearance: in no apparent distress Head exam: Present: atraumatic, normocephalic Eye exam: Present: normal appearance ENT exam: Present: normal exam, mucous membranes moist Neck exam: Present: normal inspection Respiratory exam: Present: normal lung sounds bilaterally Cardiovascular Exam: Present: regular rate, normal rhythm GI/Abdominal exam: Present: soft, tenderness (Diffusely tender in the upper quadrants no focal tenderness in the right lower or left lower quadrant), normal bowel sounds Neurological exam: Present: oriented X3 Psychiatric exam: Present: normal affect, normal mood Skin exam: Present: warm, dry <Felix Pena - Last Filed: 07/14/22 16:14> Course Vital Signs 07/14/22 07/14/22 13:29 17:23 Temperature 99.2 F 99.4 F Pulse Rate 115 H 100 Respiratory 20 18 Rate Blood Pressure 118/86 103/63 O2 Sat by Pulse 98 98 Oximetry Medical Decision Making - Lab Data Result diagrams: 07/14/22 14:09 07/14/22 14:09 <Felix Pena - Last Filed: 07/14/22 16:14> - Lab Data Result diagrams: 07/14/22 14:09 07/14/22 14:09 <Debbi Vidal - Last Filed: 07/14/22 22:33> - Medical Decision Making Was pt. sent in by a medical professional or institution (Dr., PA, BAG MACHINE SET UP OPERATOR, urgent care, hospital, or custodial...) When possible be specific @ -No Did you speak to anyone other than the patient for history (EMS, parent, family, police, friend...)? What history was obtained from this source @ -No Did you review nursing and triage notes (agree or disagree)? Why? @ -I reviewed and agree with nursing and triage notes Were old charts reviewed (outside hosp., previous admission, EMS record, old EKG, old radiological studies, urgent care reports/EKG's, custodial records)? Report findings @ -Old charts reviewed showing history of DKA and gastroparesis Differential Diagnosis (chest pain, altered mental status, abdominal pain women, abdominal pain men, vaginal bleeding, weakness, fever, dyspnea, syncope, headache, dizziness, GI bleed, back pain, seizure, CVA, palpatations, mental health, musculoskeletal)? @ -Differential Abdominal Pain Women: Appendicitis, Cholecystitis, diverticulosis, ischemic bowel, pancreatitis, hep atitis, UTI, gastroenteritis, AAA, incarcerated hernia, bowel obstruction, constipation, inflammatory bowel, hepatitis, peptic ulcer disease, splenic infarction, perforated viscus, vulvitis, ovarian torsion, PID, kidney stone, placenta abruption, this is not meant to be an all-inclusive list EKG interpreted by me (3pts min.). @ -None X-rays interpreted by me (1pt min.). @ -None done CT interpreted by me (1pt min.). @ -None done U/S interpreted by me (1pt. min.). @ -None done What testing was considered but not performed or refused? (CT, X-rays, U/S, labs)? Why? @ -None What meds were considered but not given or refused? Why? @ -None Did you discuss the management of the patient with other professionals (professionals i.e. FARAZ Glover, BAG MACHINE SET UP OPERATOR, lab, RT, psych nurse, social welfare administrator, food service hotel runner, teacher, credit officer, mattress spring encaser)? Give summary @ -No Was smoking cessation discussed for >3mins.? @ -No Was critical care preformed (if so, how long)? @ -No Were there social determinants of health that impacted care today? How? (Homelessness, low income, unemployed, alcoholism, drug addiction, transportation, low edu. Level, literacy, decrease access to med. care, detention, rehab)? @ -No Was there de-escalation of care discussed even if they declined (Discuss DNR or withdrawal of care, Hospice)? DNR status @ -No What co-morbidities impacted this encounter? (DM, HTN, Smoking, COPD, CAD, Cancer, CVA, ARF, Chemo, Hep., AIDS, mental health diagnosis, sleep apnea, mor bid obesity)? @ -None Was patient admitted / discharged? Hospital course, mention meds given and route, prescriptions, significant lab abnormalities, going to OR and other pertinent info. @ -Pending, Pt had labs drawn showed a elevated white count at 20 with a left shift. Patient reports a history of elevated white count and currently follows with heme/onc. Otherwise, CMP unremarkable. Patient provided 1.5 L of normal saline, Toradol, and Zofran with improvement of symptoms. Signed out to Dr. Vidal. (Felix Pena) Patient signed out to me from Sen. I did review the patient's labs. No signs of DKA. Spoke with patient in regards to elevated with blood cell count for which she is 28 seeing a group leader. Patient has primary care appointment tomorrow. Feels comfortable with discharge. Did give her a prescription for Zofran. Patient has strict return parameters. She has any new or worsening sy mptoms she needs to return to the emergency room. Patient agreeable to the plan and was discharged home in stable condition (Debbi Vidal) - Lab Data Lab Results 07/14/22 07/14/22 07/14/22 Range/Units 14:09 14:09 14:09 WBC 20.0 H (3.8-10.6) k/uL RBC 4.65 (3.80-5.40) m/uL Hgb 14.7 (11.4-16.0) gm/dL Hct 43.8 (34.0-46.0) % MCV 94.3 (80.0-100.0) fL MCH 31.6 (25.0-35.0) pg MCHC 33.5 (31.0-37.0) g/dL RDW 12.3 (11.5-15.5) % Plt Count 296 (150-450) k/uL MPV 7.4 Neutrophils % 94 % Lymphocytes % 2 % Monocytes % 3 % Eosinophils % 1 % Basophils % 0 % Neutrophils # 18.9 H (1.3-7.7) k/uL Lymphocytes # 0.3 L (1.0-4.8) k/uL Monocytes # 0.7 (0-1.0) k/uL Eosinophils # 0.1 (0-0.7) k/uL Basophils # 0.0 (0-0.2) k/uL Sodium (137-145) mmol/L Potassium (3.5-5.1) mmol/L Chloride (98-107) mmol/L Carbon Dioxide (22-30) mmol/L Anion Gap mmol/L BUN (7-17) mg/dL Creatinine (0.52-1.04) mg/dL Est GFR (CKD-EPI)AfAm (>60 ml/min/1.73 sqM) Est GFR (CKD-EPI)NonAf (>60 ml/min/1.73 sqM) Glucose (74-99) mg/dL Calcium (8.4-10.2) mg/dL Total Bilirubin (0.2-1.3) mg/dL AST (14-36) U/L ALT (4-34) U/L Alkaline Phosphatase (38-126) U/L Total Protein (6.3-8.2) g/dL Albumin (3.5-5.0) g/dL Amylase (30-110) U/L Lipase (23-300) U/L Urine Color Yellow Urine Appearance Clear (Clear) Urine pH 5.5 (5.0-8.0) Ur Specific [place] 1.029 (1.001-1.035) Urine Protein 1+ H (Negative) Urine Glucose (UA) 1+ H (Negative) Urine Ketones 2+ H (Negative) Urine Blood Negative (Negative) Urine Nitrite Negative (Negative) Urine Bilirubin Negative (Negative) Urine Urobilinogen <2.0 (<2.0) mg/dL Ur Leukocyte Esterase Negative (Negative) Urine RBC 1 (0-5) /hpf Urine WBC <1 (0-5) /hpf Ur Squamous Epith Cells 1 (0-4) /hpf Urine Mucus Moderate H (None) /hpf Urine HCG, Qual Not Detected (Not Detectd) 07/14/22 Range/Units 14:09 WBC (3.8-10.6) k/uL RBC (3.80-5.40) m/uL Hgb (11.4-16.0) gm/dL Hct (34.0-46.0) % MCV (80.0-100.0) fL MCH (25.0-35.0) pg MCHC (31.0-37.0) g/dL RDW (11.5-15.5) % Plt Count (150-450) k/uL MPV Neutrophils % % Lymphocytes % % Monocytes % % Eosinophils % % Basophils % % Neutrophils # (1.3-7.7) k/uL Lymphocytes # (1.0-4.8) k/uL Monocytes # (0-1.0) k/uL Eosinophils # (0-0.7) k/uL Basophils # (0-0.2) k/uL Sodium 137 (137-145) mmol/L Potassium 4.1 (3.5-5.1) mmol/L Chloride 98 (98-107) mmol/L Carbon Dioxide 27 (22-30) mmol/L Anion Gap 12 mmol/L BUN 17 (7-17) mg/dL Creatinine 0.56 (0.52-1.04) mg/dL Est GFR (CKD-EPI)AfAm >90 (>60 ml/min/1.73 sqM) Est GFR (CKD-EPI)NonAf >90 (>60 ml/min/1.73 sqM) Glucose 232 H (74-99) mg/dL Calcium 9.0 (8.4-10.2) mg/dL Total Bilirubin 1.1 (0.2-1.3) mg/dL AST 23 (14-36) U/L ALT 18 (4-34) U/L Alkaline Phosphatase 79 (38-126) U/L Total Protein 7.1 (6.3-8.2) g/dL Albumin 4.3 (3.5-5.0) g/dL Amylase 52 (30-110) U/L Lipase 36 (23-300) U/L Urine Color Urine Appearance (Clear) Urine pH (5.0-8.0) Ur Specific [place] (1.001-1.035) Urine Protein (Negative) Urine Glucose (UA) (Negative) Urine Ketones (Negative) Urine Blood (Negative) Urine Nitrite (Negative) Urine Bilirubin (Negative) Urine Urobilinogen (<2.0) mg/dL Ur Leukocyte Esterase (Negative) Urine RBC (0-5) /hpf Urine WBC (0-5) /hpf Ur Squamous Epith Cells (0-4) /hpf Urine Mucus (None) /hpf Urine HCG, Qual (Not Detectd) Disposition <Felix Pena - Last Filed: 07/14/22 16:14> Is patient prescribed a controlled substance at d/c from ED?: No Time of Disposition: 17:11 <Debbi Vidal - Last Filed: 07/14/22 22:33> Clinical Impression: Nausea & vomiting Disposition: HOME SELF-CARE Condition: Stable Instructions (If sedation given, give patient instructions): Acute Nausea and Vomiting (DC) Additional Instructions: Please use the Zofran as needed. Follow-up with your doctor in 2-4 days and return should you not have any improvement in your symptoms Prescriptions: Ondansetron Odt [Zofran Odt] 4 mg PO Q8HR PRN #20 tab PRN Reason: Nausea Referrals: Buzz Esposito MD [Primary Care Provider] - 1-2 days
[2022-07-14 14:33] LABS: Basophils % (A) 0 %; Eosinophils # (A) 0.1 k/uL (0-0.7); Eosinophils % (A) 1 %; HCT 43.8 % (34.0-46.0); HGB 14.7 gm/dL (11.4-16.0); Lymphocytes # (A) 0.3 k/uL (1.0-4.8); Lymphocytes % (A) 2 %; MCH 31.6 pg (25.0-35.0); MCHC 33.5 g/dL (31.0-37.0); MCV 94.3 fL (80.0-100.0); Mean Platelet Volume 7.4; Monocytes # (A) 0.7 k/uL (0-1.0); Monocytes % (A) 3 %; Neutrophils # (A) 18.9 k/uL (1.3-7.7); Neutrophils % (A) 94 %; Platelet Count 296 k/uL (150-450); RBC 4.65 m/uL (3.80-5.40); RDW 12.3 % (11.5-15.5)
[2022-07-14 14:47] LABS: ALT 18 U/L (4-34); AST 23 U/L (14-36); African American GFR (CKD) >90 (>60 ml/min/1.73 sqM); Albumin 4.3 g/dL (3.5-5.0); Alkaline Phosphatase 79 U/L (38-126); Amylase 52 U/L (30-110); Anion Gap 12 mmol/L; Blood Urea Nitrogen 17 mg/dL (7-17); Carbon Dioxide 27 mmol/L (22-30); Chloride 98 mmol/L (98-107); Glucose 232 mg/dL (74-99); Lipase 36 U/L (23-300); Non-African American GFR(CKD) >90 (>60 ml/min/1.73 sqM); Potassium 4.1 mmol/L (3.5-5.1); Sodium 137 mmol/L (137-145); Total Bilirubin 1.1 mg/dL (0.2-1.3); Total Protein 7.1 g/dL (6.3-8.2)
[2022-07-14] MEDS ORDERED: ONDANSETRON 8 MG in SODIUM CHLORIDE 0.9% 50 ML IVPB ONE (15:14)
[2022-07-14] MEDS ORDERED: KETOROLAC 15 MG/ML 1 ML VIAL IVP STA (15:14)
[2022-07-14] MEDS ORDERED: ONDANSETRON 4 MG/2 ML VIAL IVP STA (15:19)
[2022-07-14] MEDS ORDERED: SODIUM CHLORIDE 0.9% 1,000 ML IV STA (15:36)
[2022-07-14 16:32] LABS: Appearance,Urine Clear (Clear); Bilirubin,Urine Negative (Negative); Blood,Urine Negative (Negative); Color,Urine Yellow; Glucose,Urine (UA) 1+ (Negative); Leukocyte Esterase,Urine Negative (Negative); Mucus,Urine Moderate /hpf; Nitrite,Urine Negative (Negative); PH, Urine 5.5 (5.0-8.0); Protein,Urine 1+ (Negative); RBC,Urine 1 /hpf (0-5); Specific Gravity,Urine 1.029 (1.001-1.035); Squamous Epithelial Cell,Urine 1 /hpf (0-4); Urobilinogen,Urine <2.0 mg/dL (<2.0); WBC,Urine <1 /hpf (0-5)
[2022-07-14 16:38] LABS: Ketones,Urine 2+ (Negative)
[2022-07-14 17:25] VITALS: BP 103/63; PULSE 100; RESP 18; TEMP 99.4
== END 2022-07-14 17:25 | disposition home or self-care (01) ==
LOC: EC 13:27
DX: R11.2 Nausea with vomiting, unspecified (principal); E10.9 Type 1 diabetes mellitus without complications; F17.290 Nicotine dependence, other tobacco product, uncomplicated; F12.90 Cannabis use, unspecified, uncomplicated; Z79.4 Long term (current) use of insulin
CPT/HCPCS: 36415; 80053; 82150; 83690; 85025; 81001; 81025; 99284; 96374; 96375; 96361; J2405; J1885

== ENCOUNTER 2023-02-05 14:37 | Emergency (ER) | payer OTHER ==
[2023-02-05 14:49] LABS: Glucose,Whole Blood 305 mg/dL (70-110)
[2023-02-05] MEDS ORDERED: SODIUM CHLORIDE 0.9% 1,000 ML IV STA (15:09)
--- NOTE | 2023-02-05 15:27 | ED ---
General Adult HPI - General Chief complaint: Recheck/Abnormal Lab/Rx Stated complaint: Flu Source: patient Mode of arrival: ambulatory Limitations: no limitations - History of Present Illness Initial comments: Dictation was produced using [employer] dictation software. please excuse any grammatical, word or spelling errors. Chief Complaint: 22-year-old male presents emergency Department with concerns of diabetic ketoacidosis History of Present Illness: Patient 22-year-old type I diabetic. She manages her diabetes with insulin pump along with real-time glucometer. States that she's been symptomatic with influenza for the last 2 days. She seen her primary care doctor yesterday test is positive for influenza A. She's been taking Tamiflu. Patient claims body aches. Denies any chest pain or shortness of breath. Denies any abdominal pain or nausea. Patient states that her glucometer has been reading elevated blood sugars consistently above 300. Nas mcdonnell is concerned about being in diabetic ketoacidosis. The ROS documented in this emergency department record has been reviewed and confirmed by me. Those systems with pertinent positive or negative responses have been documented in the HPI. All other systems are other negative and/or noncontributory. - Related Data Home Medications Medication Instructions Recorded Confirmed Glucagon [Baqsimi] 1 spray NASAL DIRECTED PRN 07/02/21 12/04/21 Famotidine [Pepcid] 20 mg PO BID 12/04/21 12/04/21 Insulin Aspart [NovoLOG Flexpen] See Protocol SQ ACHS PRN MDD 100 12/04/21 12/04/21 UNITS Insulin Glargine,Hum.rec.anlog 30 units SQ HS 12/04/21 12/04/21 [Lantus Solostar Pen] Omeprazole 40 mg PO DAILY 12/04/21 12/04/21 Previous Rx's Medication Instructions Recorded Metoclopramide [Reglan] 10 mg PO ACHS #30 tab 12/04/21 Ondansetron Odt [Zofran Odt] 4 mg PO Q8HR PRN #20 tab 07/14/22 Allergies Allergy/AdvReac Type Severity Reaction Status Date / Time No Known Allergies Allergy Verified 02/05/23 14:43 Review of Systems ROS Statement: Those systems with pertinent positive or pertinent negative responses have been documented in the HPI. ROS Other: All systems not noted in ROS Statement are negative. Past Medical History Past Medical History: Diabetes Mellitus Additional Past Medical History / Comment(s): IDDM type 1, pt thinks possible neuropathy bilateral feet, past HPV History of Any Multi-Drug Resistant Organisms: None Reported Past Surgical History: Adenoidectomy, Tonsillectomy Past Anesthesia/Blood Transfusion Reactions: No Reported Reaction Past Psychological History: Anxiety, Bipolar, Depression Smoking Status: Current every day smoker, Vaper Past Alcohol Use History: None Reported Past Drug Use History: Marijuana - Past Family History Mother Family Medical History: No Reported History Additional Family Medical History / Comment(s): migraines Father Family Medical History: Hypertension Additional Family Medical History / Comment(s): Father is healthy General Exam - General Exam Comments Initial Comments: PHYSICAL EXAM: General Impression: Alert and oriented x3, not in acute distress HEENT: Normocephalic atraumatic, extra-ocular movements intact, pupils equal and reactive to light bilaterally, mucous membranes moist. Cardiovascular: Heart regular rate and rhythm Chest: Able to complete full sentences, no retractions, no tachypnea Abdomen: abdomen soft, non-tender, non-distended, no organomegaly Musculoskeletal: Pulses present and equal in all extremities, no peripheral edema Motor: no focal deficits noted Neurological: CN II-XII grossly intact, no focal motor or sensory deficits noted Skin: Intact with no visualized rashes Psych: Normal affect and mood Limitations: no limitations Course Vital Signs 02/05/23 02/05/23 02/05/23 14:39 15:15 16:39 Temperature 99.3 F 99.1 F Pulse Rate 107 H 89 Respiratory 18 19 16 Rate Blood Pressure 141/93 124/85 O2 Sat by Pulse 99 96 Oximetry 02/05/23 17:41 Temperature 99.3 F Pulse Rate 97 Respiratory 17 Rate Blood Pressure 124/85 O2 Sat by Pulse 100 Oximetry Medical Decision Making - Medical Decision Making Was pt. sent in by a medical professional or institution (, PA, EVENTS ASSISTANT, urgent care, hospital, or snf...) When possible be specific @ -No Did you speak to anyone other than the patient for history (EMS, parent, family, police, friend...)? What history was obtained from this source @ -No Did you review nursing and triage notes (agree or disagree)? Why? @ -I reviewed and agree with nursing and triage notes Were old charts reviewed (outside hosp., previous admission, EMS record, old EKG, old radiological studies, urgent care reports/EKG's, snf records)? Report findings @ -No old charts were reviewed Differential Diagnosis (chest pain, altered mental status, abdominal pain women, abdominal pain men, vaginal bleeding, musculoskeletal, weakness, fever, dyspnea, syncope, headache, dizziness, GI bleed, back pain, seizure, CVA, palpatations, mental health)? @ -Differential Weakness: Hypoglycemia, shock, sepsis, hyponatremia, anemia, infection, CO, ETOH, adverse medicine reaction, overdose, stroke, this is not meant to be an all-inclusive list. EKG interpreted by me (3pts min.). @ -None done X-rays interpreted by me (1pt min.). @ -None done CT interpreted by me (1pt min.). @ -None done U/S interpreted by me (1pt. min.). @ -None done What testing was considered but not performed or refused? (CT, X-rays, U/S, labs)? Why? @ -None What meds were considered but not given or refused? Why? @ -None Did you discuss the management of the patient with other professionals (professionals i.e. , PA, EVENTS ASSISTANT, lab, RT, psych nurse, addiction social worker, youth probation officer, teacher, loan workout officer, keycase assembler)? Give summary @ -No Was smoking cessation discussed for >3mins.? @ -No Was critical care preformed (if so, how long)? @ -No Were there social determinants of health that impacted care today? How? (Home lessness, low income, unemployed, alcoholism, drug addiction, transportation, low edu. Level, literacy, decrease access to med. care, correction, rehab)? @ -No Was there de-escalation of care discussed even if they declined (Discuss DNR or withdrawal of care, Hospice)? DNR status @ -No What co-morbidities impacted this encounter? (DM, HTN, Smoking, COPD, CAD, Cancer, CVA, ARF, Chemo, Hep., AIDS, mental health diagnosis, sleep apnea, morbid obesity)? @ -None Was patient admitted / discharged? Hospital course, mention meds given and route, prescriptions, significant lab abnormalities, going to OR and other pertinent info. @ -22-year-old female presents to the [facility] department for concerns of DKA. She is insulin-dependent diabetic. She is well compliant with her diabetes care. Vital signs are stable. Laboratory evaluation obtained. CBC negative. Metabolic panel shows no acidosis. She is mildly hyperglycemic given IV fluids with improvement of hyperglycemia. She has 2+ ketones and she's positive for acetones. She however is non-acidotic. Her bicarb is 25. Disposition options were discussed with patient and she is agreeable for discharge. Patient advised follow-up with primary care doctor. Return precautions discussed. Undiagnosed new problem with uncertain prognosis? @ -No Drug Therapy requiring intensive monitoring for toxicity (Heparin, Nitro, Insulin, Cardizem)? @ -No Were any procedures done? @ -No Diagnosis/symptom? Acute, or Chronic, or Acute on Chronic? Uncomplicated (without systemic symptoms) or Complicated (systemic symptoms)? @ -Dehydration Side effects of treatment? @ -No Exacerbation, Progression, or Severe Exacerbation? @ -No Poses a threat to life or bodily function? How? (Chest pain, [place], CO, pneumonia, PE, COPD, DKA, ARF, appy, cholecystitis, CVA, Diverticulitis, Homicidal, Suicidal, threat to staff... and all critical care pts) @ -yes - Lab Data Result diagrams: 02/05/23 15:13 02/05/23 15:13 Lab Results 02/05/23 02/05/23 02/05/23 Range/Units 14:47 15:13 15:13 WBC 7.3 (3.8-10.6) k/uL RBC 4.20 (3.80-5.40) m/uL Hgb 13.6 (11.4-16.0) gm/dL Hct 39.4 (34.0-46.0) % MCV 93.8 (80.0-100.0) fL MCH 32.3 (25.0-35.0) pg MCHC 34.4 (31.0-37.0) g/dL RDW 12.4 (11.5-15.5) % Plt Count 166 (150-450) k/uL MPV 8.2 Neutrophils % 78 % Lymphocytes % 14 % Monocytes % 6 % Eosinophils % 1 % Basophils % 1 % Neutrophils # 5.7 (1.3-7.7) k/uL Lymphocytes # 1.0 (1.0-4.8) k/uL Monocytes # 0.4 (0-1.0) k/uL Eosinophils # 0.0 (0-0.7) k/uL Basophils # 0.0 (0-0.2) k/uL Sodium (137-145) mmol/L Potassium (3.5-5.1) mmol/L Chloride (98-107) mmol/L Carbon Dioxide (22-30) mmol/L Anion Gap mmol/L BUN (7-17) mg/dL Creatinine (0.52-1.04) mg/dL Est GFR (CKD-EPI)AfAm (>60 ml/min/1.73 sqM) Est GFR (CKD-EPI)NonAf (>60 ml/min/1.73 sqM) Glucose (74-99) mg/dL POC Glucose (mg/dL) 305 H (70-110) mg/dL POC Glu Storage Consultant ID Ruth Ann Boogie Plasma Lactic Acid [place] (0.7-2.0) mmol/L Calcium (8.4-10.2) mg/dL Total Bilirubin (0.2-1.3) mg/dL AST (14-36) U/L ALT (4-34) U/L Alkaline Phosphatase (38-126) U/L Total Protein (6.3-8.2) g/dL Albumin (3.5-5.0) g/dL Urine Color Colorless Urine Appearance Clear (Clear) Urine pH 5.5 (5.0-8.0) Ur Specific [place] 1.021 (1.001-1.035) Urine Protein Negative (Negative) Urine Glucose (UA) 4+ H (Negative) Urine Ketones 2+ H (Negative) Urine Blood Negative (Negative) Urine Nitrite Negative (Negative) Urine Bilirubin Negative (Negative) Urine Urobilinogen <2.0 (<2.0) mg/dL Ur Leukocyte Esterase Negative (Negative) Urine HCG, Qual (Not Detectd) Acetone, Qual (Negative) 02/05/23 02/05/23 02/05/23 Range/Units 15:13 15:13 15:13 WBC (3.8-10.6) k/uL RBC (3.80-5.40) m/uL Hgb (11.4-16.0) gm/dL Hct (34.0-46.0) % MCV (80.0-100.0) fL MCH (25.0-35.0) pg MCHC (31.0-37.0) g/dL RDW (11.5-15.5) % Plt Count (150-450) k/uL MPV Neutrophils % % Lymphocytes % % Monocytes % % Eosinophils % % Basophils % % Neutrophils # (1.3-7.7) k/uL Lymphocytes # (1.0-4.8) k/uL Monocytes # (0-1.0) k/uL Eosinophils # (0-0.7) k/uL Basophils # (0-0.2) k/uL Sodium 135 L (137-145) mmol/L Potassium 4.2 (3.5-5.1) mmol/L Chloride 97 L (98-107) mmol/L Carbon Dioxide 25 (22-30) mmol/L Anion Gap 13 mmol/L BUN 15 (7-17) mg/dL Creatinine 0.53 (0.52-1.04) mg/dL Est GFR (CKD-EPI)AfAm >90 (>60 ml/min/1.73 sqM) Est GFR (CKD-EPI)NonAf >90 (>60 ml/min/1.73 sqM) Glucose 274 H (74-99) mg/dL POC Glucose (mg/dL) (70-110) mg/dL POC Glu Storage Consultant ID Plasma Lactic Acid [place] 1.3 (0.7-2.0) mmol/L Calcium 8.7 (8.4-10.2) mg/dL Total Bilirubin 0.4 (0.2-1.3) mg/dL AST 44 H (14-36) U/L ALT 30 (4-34) U/L Alkaline Phosphatase 86 (38-126) U/L Total Protein 6.9 (6.3-8.2) g/dL Albumin 4.2 (3.5-5.0) g/dL Urine Color Urine Appearance (Clear) Urine pH (5.0-8.0) Ur Specific [place] (1.001-1.035) Urine Protein (Negative) Urine Glucose (UA) (Negative) Urine Ketones (Negative) Urine Blood (Negative) Urine Nitrite (Negative) Urine Bilirubin (Negative) Urine Urobilinogen (<2.0) mg/dL Ur Leukocyte Esterase (Negative) Urine HCG, Qual Not Detected (Not Detectd) Acetone, Qual Positive (Negative) 02/05/23 Range/Units 17:40 WBC (3.8-10.6) k/uL RBC (3.80-5.40) m/uL Hgb (11.4-16.0) gm/dL Hct (34.0-46.0) % MCV (80.0-100.0) fL MCH (25.0-35.0) pg MCHC (31.0-37.0) g/dL RDW (11.5-15.5) % Plt Count (150-450) k/uL MPV Neutrophils % % Lymphocytes % % Monocytes % % Eosinophils % % Basophils % % Neutrophils # (1.3-7.7) k/uL Lymphocytes # (1.0-4.8) k/uL Monocytes # (0-1.0) k/uL Eosinophils # (0-0.7) k/uL Basophils # (0-0.2) k/uL Sodium (137-145) mmol/L Potassium (3.5-5.1) mmol/L Chloride (98-107) mmol/L Carbon Dioxide (22-30) mmol/L Anion Gap mmol/L BUN (7-17) mg/dL Creatinine (0.52-1.04) mg/dL Est GFR (CKD-EPI)AfAm (>60 ml/min/1.73 sqM) Est GFR (CKD-EPI)NonAf (>60 ml/min/1.73 sqM) Glucose (74-99) mg/dL POC Glucose (mg/dL) 243 H (70-110) mg/dL POC Glu Storage Consultant ID Radha Jackson Plasma Lactic Acid [place] (0.7-2.0) mmol/L Calcium (8.4-10.2) mg/dL Total Bilirubin (0.2-1.3) mg/dL AST (14-36) U/L ALT (4-34) U/L Alkaline Phosphatase (38-126) U/L Total Protein (6.3-8.2) g/dL Albumin (3.5-5.0) g/dL Urine Color Urine Appearance (Clear) Urine pH (5.0-8.0) Ur Specific [place] (1.001-1.035) Urine Protein (Negative) Urine Glucose (UA) (Negative) Urine Ketones (Negative) Urine Blood (Negative) Urine Nitrite (Negative) Urine Bilirubin (Negative) Urine Urobilinogen (<2.0) mg/dL Ur Leukocyte Esterase (Negative) Urine HCG, Qual (Not Detectd) Acetone, Qual (Negative) Disposition Clinical Impression: Dehydration Disposition: HOME SELF-CARE Condition: Good Instructions (If sedation given, give patient instructions): Influenza (ED) Is patient prescribed a controlled substance at d/c from ED?: No Referrals: Buzz Esposito MD [Primary Care Provider] - 1-2 days Time of Disposition: 18:23
[2023-02-05 15:56] LABS: Basophils % (A) 1 %; Eosinophils % (A) 1 %; HCT 39.4 % (34.0-46.0); HGB 13.6 gm/dL (11.4-16.0); Lymphocytes % (A) 14 %; MCH 32.3 pg (25.0-35.0); MCHC 34.4 g/dL (31.0-37.0); MCV 93.8 fL (80.0-100.0); Mean Platelet Volume 8.2; Monocytes # (A) 0.4 k/uL (0-1.0); Monocytes % (A) 6 %; Neutrophils # (A) 5.7 k/uL (1.3-7.7); Neutrophils % (A) 78 %; Platelet Count 166 k/uL (150-450); RDW 12.4 % (11.5-15.5); WBC 7.3 k/uL (3.8-10.6)
[2023-02-05 16:00] LABS: Appearance,Urine Clear (Clear); Bilirubin,Urine Negative (Negative); Blood,Urine Negative (Negative); Color,Urine Colorless; Glucose,Urine (UA) 4+ (Negative); Leukocyte Esterase,Urine Negative (Negative); Nitrite,Urine Negative (Negative); PH, Urine 5.5 (5.0-8.0); Protein,Urine Negative (Negative); Specific Gravity,Urine 1.021 (1.001-1.035); Urobilinogen,Urine <2.0 mg/dL (<2.0)
[2023-02-05 16:10] LABS: Ketones,Urine 2+ (Negative)
[2023-02-05 16:14] LABS: ALT 30 U/L (4-34); AST 44 U/L (14-36); African American GFR (CKD) >90 (>60 ml/min/1.73 sqM); Albumin 4.2 g/dL (3.5-5.0); Alkaline Phosphatase 86 U/L (38-126); Anion Gap 13 mmol/L; Blood Urea Nitrogen 15 mg/dL (7-17); Calcium 8.7 mg/dL (8.4-10.2); Carbon Dioxide 25 mmol/L (22-30); Chloride 97 mmol/L (98-107); Glucose 274 mg/dL (74-99); Non-African American GFR(CKD) >90 (>60 ml/min/1.73 sqM); Potassium 4.2 mmol/L (3.5-5.1); Sodium 135 mmol/L (137-145); Total Bilirubin 0.4 mg/dL (0.2-1.3); Total Protein 6.9 g/dL (6.3-8.2)
[2023-02-05 17:00] VITALS: BP 124/85
[2023-02-05 17:44] LABS: Glucose,Whole Blood 243 mg/dL (70-110)
[2023-02-05 17:45] VITALS: PULSE 97; RESP 17; TEMP 99.3
== END 2023-02-05 18:31 | disposition home or self-care (01) ==
LOC: EC 14:37
DX: E86.0 Dehydration (principal); E10.65 Type 1 diabetes mellitus with hyperglycemia; F17.290 Nicotine dependence, other tobacco product, uncomplicated; F12.90 Cannabis use, unspecified, uncomplicated
CPT/HCPCS: 36415; 80053; 81003; 81025; 82009; 83605; 85025; 96360; 99285

== ENCOUNTER 2023-02-06 08:17 | Inpatient (IN) | payer OTHER ==
[2023-02-06 08:28] LABS: Glucose,Whole Blood 312 mg/dL (70-110)
[2023-02-06] MEDS ORDERED: ONDANSETRON 4 MG/2 ML VIAL IVP STA (08:39)
[2023-02-06] MEDS ORDERED: SODIUM CHLORIDE 0.9% 2,000 ML IV ONE (08:39)
--- NOTE | 2023-02-06 08:49 | ED ---
General Adult HPI - General Chief complaint: Nausea/Vomiting/Diarrhea Stated complaint: vomiting - type 1 diabetic Time Seen by Provider: 02/06/23 08:25 Source: patient, RN notes reviewed, old records reviewed Mode of arrival: ambulatory Limitations: no limitations - History of Present Illness Initial comments: This is a 22-year-old female who is a type I diabetic. Patient came in last night because she was diagnosed with the flu and she wasn't feeling well and her sugars been running high and she wanted to be checked out. Patient states when she left a low-grade fever. Patient states when she got home she was nauseous and began throwing up and now she is concerned that she might have DKA. Patient states she still has some body aches but no abdominal pain. Patient denies chest pain difficulty breathing shortness of breath. Patient denies any headache patient denies numbness weakness - Related Data Home Medications Medication Instructions Recorded Confirmed Glucagon [Baqsimi] 1 spray NASAL DIRECTED PRN 07/02/21 12/04/21 Famotidine [Pepcid] 20 mg PO BID 12/04/21 12/04/21 Insulin Aspart [NovoLOG Flexpen] See Protocol SQ ACHS PRN MDD 100 12/04/21 12/04/21 UNITS Insulin Glargine,Hum.rec.anlog 30 units SQ HS 12/04/21 12/04/21 [Lantus Solostar Pen] Omeprazole 40 mg PO DAILY 12/04/21 12/04/21 Previous Rx's Medication Instructions Recorded Metoclopramide [Reglan] 10 mg PO ACHS #30 tab 12/04/21 Ondansetron Odt [Zofran Odt] 4 mg PO Q8HR PRN #20 tab 07/14/22 Allergies Allergy/AdvReac Type Severity Reaction Status Date / Time No Known Allergies Allergy Verified 02/06/23 08:25 Review of Systems ROS Statement: Those systems with pertinent positive or pertinent negative responses have been documented in the HPI. ROS Other: All systems not noted in ROS Statement are negative. Past Medical History Past Medical History: Diabetes Mellitus Additional Past Medical History / Comment(s): IDDM type 1, pt thinks possible neuropathy bilateral feet, past HPV History of Any Multi-Drug Resistant Organisms: None Reported Past Surgical History: Adenoidectomy, Tonsillectomy Past Anesthesia/Blood Transfusion Reactions: No Reported Reaction Past Psychological History: Anxiety, Bipolar, Depression Smoking Status: Current every day smoker, Vaper Past Alcohol Use History: None Reported Past Drug Use History: Marijuana - Past Family History Mother Family Medical History: No Reported History Additional Family Medical History / Comment(s): migraines Father Family Medical History: Hypertension Additional Family Medical History / Comment(s): Father is healthy General Exam - General Exam Comments Initial Comments: GENERAL: Patient is well-developed and well-nourished. Patient is nontoxic and well-hy drated and is in mild distress. ENT: Neck is soft and supple. No significant lymphadenopathy is noted. Oropharynx is clear. Moist mucous membranes. Neck has full range of motion without eliciting any pain. EYES: The sclera were anicteric and conjunctiva were pink and moist. Extraocular move ments were intact and pupils were equal round and reactive to light. Eyelids were unremarkable. PULMONARY: Unlabored respirations. Good breath sounds bilaterally. No audible rales rhonchi or wheezing was noted. CARDIOVASCULAR: There is a regular rate and rhythm without any murmurs gallops or rubs. ABDOMEN: Soft and nontender with normal bowel sounds. SKIN: Skin is clear with no lesions or rashes and otherwise unremarkable. NEUROLOGIC: Patient is alert and oriented x3. Cranial nerves II through XII are grossly intact. Motor and sensory are also intact. Normal speech, volume and content. Symmetrical smile. MUSCULOSKELETAL: Normal extremities with adequate strength and full range of motion. LYMPHATICS: No significant lymphadenopathy is noted PSYCHIATRIC: Normal psychiatric evaluation. Limitations: no limitations Course Vital Signs 02/06/23 02/06/23 08:22 09:47 Temperature 98.2 F Pulse Rate 94 92 Respiratory 20 18 Rate Blood Pressure 130/82 115/72 O2 Sat by Pulse 99 100 Oximetry Medical Decision Making - Medical Decision Making Was pt. sent in by a medical professional or institution (, PA, CHILDREN'S LITERATURE PROFESSOR, urgent care, hospital, or residential...) When possible be specific @ -No Did you speak to anyone other than the patient for history (EMS, parent, family, police, friend...)? What history was obtained from this source @ -No Did you review nursing and triage notes (agree or disagree)? Why? @ -I reviewed and agree with nursing and triage notes Were old charts reviewed (outside hosp., previous admission, EMS record, old EKG, old radiological studies, urgent care reports/EKG's, residential records)? Report findings @ -I reviewed prior charts from prior lab work on the patient Differential Diagnosis (chest pain, altered mental status, abdominal pain women, abdominal pain men, vaginal bleeding, weakness, fever, dyspnea, syncope, headache, dizziness, GI bleed, back pain, seizure, CVA, palpatations, mental health, musculoskeletal)? @ -Gastritis, acute vomiting, DKA, hyperglycemia, this is not all inclusive list EKG interpreted by me (3pts min.). @ -As above X-rays interpreted by me (1pt min.). @ -None done CT interpreted by me (1pt min.). @ -None done U/S interpreted by me (1pt. min.). @ -None done What testing was considered but not performed or refused? (CT, X-rays, U/S, labs)? Why? @ -None What meds were considered but not given or refused? Why? @ -None Did you discuss the management of the patient with other professionals (professionals i.e. , PA, CHILDREN'S LITERATURE PROFESSOR, lab, RT, psych nurse, professor of social work, flight deck officer, teacher, banking services officer, case sealer)? Give summary @ -I spoke with Dr. Harden and he agreed to admit the patient Was smoking cessation discussed for >3mins.? @ -No Was critical care preformed (if so, how long)? @ -No Were there social determinants of health that impacted care today? How? (Homelessness, low income, unemployed, alcoholism, drug addiction, transportation, low edu. Level, literacy, decrease access to med. care, senior living, rehab)? @ -No Was there de-escalation of care discussed even if they declined (Discuss DNR or withdrawal of care, Hospice)? DNR status @ -No What co-morbidities impacted this encounter? (DM, HTN, Smoking, COPD, CAD, Cancer, CVA, ARF, Chemo, Hep., AIDS, mental health diagnosis, sleep apnea, morbid obesity)? @ -None Was patient admitted / discharged? Hospital course, mention meds given and route, prescriptions, significant lab abnormalities, going to OR and other pertinent info. @ -Patient received fluid in the emergency department as well as Zofran to stop the vomiting. She was feeling a little better however she was acidotic with an elevated sugar in the 300s. I spoke with some physicians agreed to admit the patient he did not want me to start insulin until he evaluated the patient so patient will be admitted to them Undiagnosed new problem with uncertain prognosis? @ -No Drug Therapy requiring intensive monitoring for toxicity (Heparin, Nitro, Insulin, Cardizem)? @ -No Were any procedures done? @ -No Diagnosis/symptom? @ -Diabetic ketoacidosis Acute, or Chronic, or Acute on Chronic? @ -Acute Uncomplicated (without systemic symptoms) or Complicated (systemic symptoms)? @ -Complicated Side effects of treatment? @ -No Exacerbation, Progression, or Severe Exacerbation? @ -No Poses a threat to life or bodily function? How? (Chest pain, [place], [place], pneumonia, PE, COPD, DKA, ARF, appy, cholecystitis, CVA, Diverticulitis, Homicidal, Suicidal, threat to staff... and all critical care pts) @ -Yes this could lead to severe dehydration and increased morbidity and mortality - Lab Data Result diagrams: 02/06/23 08:43 02/06/23 08:43 Lab Results 02/06/23 02/06/23 02/06/23 Range/Units 08:26 08:43 08:43 WBC 9.0 (3.8-10.6) k/uL RBC 4.43 (3.80-5.40) m/uL Hgb 14.0 (11.4-16.0) gm/dL Hct 42.4 (34.0-46.0) % MCV 95.6 (80.0-100.0) fL MCH 31.6 (25.0-35.0) pg MCHC 33.1 (31.0-37.0) g/dL RDW 12.5 (11.5-15.5) % Plt Count 194 (150-450) k/uL MPV 8.1 Neutrophils % 80 % Lymphocytes % 11 % Monocytes % 6 % Eosinophils % 0 % Basophils % 0 % Neutrophils # 7.2 (1.3-7.7) k/uL Lymphocytes # 1.0 (1.0-4.8) k/uL Monocytes # 0.6 (0-1.0) k/uL Eosinophils # 0.0 (0-0.7) k/uL Basophils # 0.0 (0-0.2) k/uL Sodium 136 L (137-145) mmol/L Potassium 4.3 (3.5-5.1) mmol/L Chloride 102 (98-107) mmol/L Carbon Dioxide 13 L (22-30) mmol/L Anion Gap 21 mmol/L BUN 16 (7-17) mg/dL Creatinine 0.63 (0.52-1.04) mg/dL Est GFR (CKD-EPI)AfAm >90 (>60 ml/min/1.73 sqM) Est GFR (CKD-EPI)NonAf >90 (>60 ml/min/1.73 sqM) Glucose 327 H (74-99) mg/dL POC Glucose (mg/dL) 312 H (70-110) mg/dL POC Glu Coat Presser ID Colleen Barber Calcium 8.7 (8.4-10.2) mg/dL Magnesium 1.8 (1.6-2.3) mg/dL Total Bilirubin 0.4 (0.2-1.3) mg/dL AST 39 H (14-36) U/L ALT 29 (4-34) U/L Alkaline Phosphatase 89 (38-126) U/L Total Protein 6.9 (6.3-8.2) g/dL Albumin 4.2 (3.5-5.0) g/dL Acetone, Qual Positive (Negative) Disposition Clinical Impression: Diabetic ketoacidosis Disposition: ADMITTED IP TO THIS HOSP Referrals: Buzz Esposito MD [Primary Care Provider] - 1-2 days Time of Disposition: 11:33
[2023-02-06 09:07] LABS: Basophils % (A) 0 %; Eosinophils % (A) 0 %; HCT 42.4 % (34.0-46.0); Lymphocytes % (A) 11 %; MCH 31.6 pg (25.0-35.0); MCHC 33.1 g/dL (31.0-37.0); MCV 95.6 fL (80.0-100.0); Mean Platelet Volume 8.1; Monocytes # (A) 0.6 k/uL (0-1.0); Monocytes % (A) 6 %; Neutrophils # (A) 7.2 k/uL (1.3-7.7); Neutrophils % (A) 80 %; Platelet Count 194 k/uL (150-450); RBC 4.43 m/uL (3.80-5.40); RDW 12.5 % (11.5-15.5)
[2023-02-06 10:29] LABS: ALT 29 U/L (4-34); AST 39 U/L (14-36); African American GFR (CKD) >90 (>60 ml/min/1.73 sqM); Albumin 4.2 g/dL (3.5-5.0); Alkaline Phosphatase 89 U/L (38-126); Anion Gap 21 mmol/L; Blood Urea Nitrogen 16 mg/dL (7-17); Calcium 8.7 mg/dL (8.4-10.2); Carbon Dioxide 13 mmol/L (22-30); Chloride 102 mmol/L (98-107); Glucose 327 mg/dL (74-99); Magnesium 1.8 mg/dL (1.6-2.3); Non-African American GFR(CKD) >90 (>60 ml/min/1.73 sqM); Potassium 4.3 mmol/L (3.5-5.1); Sodium 136 mmol/L (137-145); Total Bilirubin 0.4 mg/dL (0.2-1.3); Total Protein 6.9 g/dL (6.3-8.2)
[2023-02-06] MEDS ORDERED: SODIUM CHLORIDE 0.9% 1,000 ML IV SCH (11:45)
[2023-02-06 12:08] LABS: Glucose,Whole Blood 312 mg/dL (70-110)
[2023-02-06] MEDS ORDERED: Magnesium Replacement Protocol 1 EACH MISC MISCELLANE PRN (12:16)
[2023-02-06] MEDS ORDERED: Potassium Replacement Protocol 1 EACH MISC MISCELLANE PRN (12:16)
[2023-02-06] MEDS ORDERED: DEXTROSE 50% SYRINGE 50 ML IVP PRN ×2 (12:16)
[2023-02-06] MEDS ORDERED: SODIUM CHLORIDE 0.9% 1,000 ML IV ONE (12:24)
[2023-02-06] MEDS ORDERED: INSULIN REGULAR 100 UNIT in SODIUM CHLORIDE 0.9% 100 ML IV SCH (12:30)
[2023-02-06] MEDS ORDERED: bisacodyL 5 MG TABLET.DR PO PRN (12:38)
[2023-02-06] MEDS ORDERED: MELATONIN 3 MG TABLET PO PRN (12:38)
[2023-02-06] MEDS ORDERED: ACETAMINOPHEN TAB 325 MG TAB PO PRN (12:38)
[2023-02-06] MEDS ORDERED: ONDANSETRON 4 MG/2 ML VIAL IVP PRN (12:38)
[2023-02-06] MEDS ORDERED: NALOXONE 0.4 MG/ML 1 ML VIAL IV PRN (12:38)
--- NOTE | 2023-02-06 12:50 | P.CNPUL ---
History of Present Illness Consult date: 02/06/23 Requesting physician: Beckie Montes Reason for consult: other (Critical care management) Chief complaint: Nausea, vomiting, fever History of present illness: This is a very pleasant 22-year-old female patient with a known history of type 1 diabetes mellitus, anxiety/depression, chronic and ongoing tobacco dependence, vape user, marijuana use. The last couple of days she had been having issues with nausea vomiting, high sugars. She was diagnosed by her PCP with influenza a. She came to the emergency room this morning with similar symptoms. She required high amounts of insulin through her pump to control her blood sugars. White count 9.0. Hemoglobin 14.0. Platelets 194. Sodium 136. Potassium 4.3. Bicarbonate 13. BUN 16. Creatinine 0.63. Anion gap 21. Glucose 327. Acetone positive. She has received 2 L of fluid resuscitation. To be on D5 and half- normal saline with 20 of KCl at 150 MLS per hour. Insulin drip at 0.1 units per kilogram per hour. Continued on Tamiflu. She is seen today in the emergency department. She is currently resting on a stretcher. Still having issues with nausea, muscle aches and fatigue. Continue good O2 saturations in the high 90s on room air. She's currently afebrile. Hemodynamically stable. Review of Systems REVIEW OF SYSTEMS: CONSTITUTIONAL: Positive for generalized weakness, fatigue. Denies any recent significant weight loss or weight gain. EYES: Denies change in vision. EARS, NOSE, MOUTH, THROAT: Denies headaches, denies sore throat. CARDIOVASCULAR: Denies chest pain, palpitations or syncopal episodes. RESPIRATORY: Denies shortness of breath, cough, congestion or hemoptysis. GASTROINTESTINAL: Positive for nausea and vomiting. GENITOURINARY: Denies hematuria, denies infections. MUSKULOSKELETAL: Denies pain, denies swelling. INTEGUMENTARY: Denies rash, denies eczema. NEUROLOGICAL: Denies recent memory loss, no recent seizure activity. PSYCHIATRIC: Denies anxiety, denies depression. HEMATOLOGIC/LYMPHATIC: Denies anemia, denies enlarged lymph nodes. s Past Medical History Past Medical History: Diabetes Mellitus Additional Past Medical History / Comment(s): IDDM type 1, pt thinks possible neuropathy bilateral feet, past HPV History of Any Multi-Drug Resistant Organisms: None Reported Past Surgical History: Adenoidectomy, Tonsillectomy Past Anesthesia/Blood Transfusion Reactions: No Reported Reaction Past Psychological History: Anxiety, Bipolar, Depression Smoking Status: Current every day smoker, Vaper Past Alcohol Use History: None Reported Past Drug Use History: Marijuana - Past Family History Mother Family Medical History: No Reported History Additional Family Medical History / Comment(s): migraines Father Family Medical History: Hypertension Additional Family Medical History / Comment(s): Father is healthy Medications and Allergies Home Medications Medication Instructions Recorded Confirmed Type DULoxetine HCL [Cymbalta] 60 mg PO HS 02/06/23 02/06/23 History INSULIN LISPRO (For Pump) [humaLOG 0.01 units SQ-PUMP CONTINUOUS 02/06/23 02/06/23 History (For Pump)] Oseltamivir [Tamiflu] 75 mg PO BID 02/06/23 02/06/23 History Allergies Allergy/AdvReac Type Severity Reaction Status Date / Time No Known Allergies Allergy Verified 02/06/23 12:37 Physical Exam Vitals: Vital Signs Temp Pulse Resp BP Pulse Ox 02/06/23 09:47 92 18 115/72 100 02/06/23 08:22 98.2 F 94 20 130/82 99 Intake and Output 02/05/23 02/06/23 02/06/23 22:59 06:59 14:59 Other: Weight 68.039 kg GENERAL EXAM: Alert, weak, very pleasant 22-year-old female, on room air, fairly comfortable in no apparent distress. HEAD: Normocephalic. EYES: Normal reaction of pupils, equal size. NOSE: Clear with pink turbinates. THROAT: No erythema or exudates. NECK: No masses, no JVD. CHEST: No chest wall deformity. LUNGS: Equal air entry with no crackles, wheeze, rhonchi or dullness. CVS: S1 and S2 normal with no audible murmur, regular rhythm. ABDOMEN: No hepatosplenomegaly, normal bowel sounds, no guarding or rigidity. SPINE: No scoliosis or deformity SKIN: No rashes CENTRAL NERVOUS SYSTEM: No focal deficits, tone is normal in all 4 extremities. EXTREMITIES: There is no peripheral edema. No clubbing, no cyanosis. Peripheral pulses are intact. Results - Laboratory Findings CBC and BMP: 02/06/23 08:43 12/24/23 08:43 Abnormal lab findings: Abnormal Labs 02/06/23 02/06/23 02/06/23 08:26 08:43 12:06 Sodium 136 L Carbon Dioxide 13 L Glucose 327 H POC Glucose (mg/dL) 312 H 312 H AST 39 H Assessment and Plan Assessment: Acute diabetic ketoacidosis secondary to influenza A Influenza A infection, currently on Tamiflu Diabetes mellitus, type I Chronic and ongoing tobacco dependence History of anxiety/depression Plan: Patient was seen and evaluated Labs and medications reviewed Received 2 units of fluid resuscitation Continue with the DKA protocol Admit and monitor closely in the intensive care unit We will continue to follow and make further recommendations based on her clinical status I have personally seen and examined the patient, performed the documentation and the assessment and plan as written. Number of minutes spent on the visit: 20.
[2023-02-06 12:59] LABS: African American GFR (CKD) >90 (>60 ml/min/1.73 sqM); Anion Gap 21 mmol/L; Blood Urea Nitrogen 15 mg/dL (7-17); Carbon Dioxide 16 mmol/L (22-30); Chloride 100 mmol/L (98-107); Glucose 296 mg/dL (74-99); Non-African American GFR(CKD) >90 (>60 ml/min/1.73 sqM); Potassium 4.6 mmol/L (3.5-5.1); Sodium 137 mmol/L (137-145)
[2023-02-06] MEDS ORDERED: NICOTINE GUM (POLACRILEX) 2 MG GUM BUCCAL PRN (13:06)
--- NOTE | 2023-02-06 13:06 | P.HPIM ---
History of Present Illness H&P Date: 02/06/23 Patient is a 22-year-old female with history of diabetes mellitus type 1 on inbsulin pump with last A1C 10.3 1 weeke ago, Nicotine dependency (vaping), and endometroisis who presented to the ED with vomiting and hyperglycemia. She had fevers and URI symptoms with hyperglycemia at home 2 days ago and was seen at [facility] [place] and diagnosied with influenza A. She was started on Tamiflu and has take 2 doses. Initially she presented to the ER on 02/05/23 due to hyper glycemia. At that point in time she was acetone negative and did not have acidosis. She was th erefore discharged home. She reports presented today with worsening symptoms. Laboratory analysis in the ER included CBC, CMP, magnesium level and acetone which was remarkable for sodium 136, carbon dioxide 13, anion gap 21, glucose 327, and acetone was positive. In the ER she was administered 1 L of normal saline and 4 mg of Zofran. Arrangements were made for admission. Patient seen and examined at bedside at bedside in the emergency department. She is concerned about her blood sugars and feels "terrible". She had nausea and vomiting overnight since leaving the ER. She report FLU A + daignosied 2 days ago. The last time she had DKA she was septic. her BS at home have been running 300-400. She has been bolusing with her pump often at home without improvement she believes that in 24 hours she took between 50-60 units of insulin. She feels like she needs an insulin gtt because this is to much for her to manage. She does not currently have an compensation/benefits specialist as she aged out of her pediatric compensation/benefits specialist. Vital signs reviewed General: ill appearing, no distress, appears at stated age Derm: warm, dry Eyes: EOMI, no lid lag, anicteric sclera ENT: Nose and ears atraumatic, no thrush, no pharyngeal erythema, + dry mucus memebranes Cardiovascular: S1S2 reg, no murmur, positive posterior tibial pulse bilateral, no edema, capillary refill less than 2 seconds Lungs: clear to auscultation bilateral, no rhonchi, no rales, no wheeze, no accessory muscle use Abdominal: soft, nontender to palpation, no guarding, no appreciable organomegaly, normal bowel sounds Ext: no gross muscle atrophy, no contractures Neuro: CN II-XII grossly intact, no focal neuro deficits Psych: Alert, oriented, appropriate affect Assessment/Plan: Influenza A DKA in a Type I diabetic Intractable nausea and vomiting related to above. - admit to ICU, Case discussed with critical care team - start insulin gtt no bolus, titrate per BS, monitor for change in mentation and hypoglycemia - q1 hour accucheck - NS at 200 cc/hr - q4 hours BMP, MG, and phos -off insulin pump - Tamiflu 75 mg has completed 05/24 doses - check stat CXR nicotine dependency - nicotine gun 2 mg q2 hours prn Imaging: As per HPI Data Review: As per HPI The patient is admitted with an anticipated greater than 2 midnight stay for evaluation of DKA. Surrogate decision-maker: Father CODE STATUS:Full DVT prophylaxis: Lovenox Anticipated discharge date: 24-[address]: home This dictation was prepared using [employer] voice recognition software. Though every attempt is made to correct errors during dictation some may still exist. Past Medical History Past Medical History: Diabetes Mellitus Additional Past Medical History / Comment(s): IDDM type 1, pt thinks possible neuropathy bilateral feet, past HPV History of Any Multi-Drug Resistant Organisms: None Reported Past Surgical History: Adenoidectomy, Tonsillectomy Past Anesthesia/Blood Transfusion Reactions: No Reported Reaction Past Psychological History: Anxiety, Bipolar, Depression Smoking Status: Current every day smoker, Vaper Past Alcohol Use History: None Reported Past Drug Use History: Marijuana - Past Family History Mother Family Medical History: No Reported History Additional Family Medical History / Comment(s): migraines Father Family Medical History: Hypertension Additional Family Medical History / Comment(s): Father is healthy Medications and Allergies Home Medications Medication Instructions Recorded Confirmed Type DULoxetine HCL [Cymbalta] 60 mg PO HS 02/06/23 02/06/23 History INSULIN LISPRO (For Pump) [humaLOG 0.01 units SQ-PUMP CONTINUOUS 02/06/23 02/06/23 History (For Pump)] Oseltamivir [Tamiflu] 75 mg PO BID 02/06/23 02/06/23 History Allergies Allergy/AdvReac Type Severity Reaction Status Date / Time No Known Allergies Allergy Verified 02/06/23 12:37 Physical Exam Osteopathic Statement: *. No significant issues noted on an osteopathic structural exam other than those noted in the History and Physical/Consult. Vitals: Vital Signs Temp Pulse Resp BP Pulse Ox 02/06/23 09:47 92 18 115/72 100 02/06/23 08:22 98.2 F 94 20 130/82 99 Intake and Output 02/05/23 02/06/23 02/06/23 22:59 06:59 14:59 Other: Weight 68.039 kg Results CBC & Chem 7: 02/06/23 08:43 02/06/23 11:55 Labs: Abnormal Lab Results - Last 24 Hours (Table) 02/06/23 02/06/23 02/06/23 Range/Units 08:26 08:43 11:55 Sodium 136 L (137-145) mmol/L Carbon Dioxide 13 L 16 L (22-30) mmol/L Glucose 327 H 296 H (74-99) mg/dL POC Glucose (mg/dL) 312 H (70-110) mg/dL AST 39 H (14-36) U/L 02/06/23 Range/Units 12:06 Sodium (137-145) mmol/L Carbon Dioxide (22-30) mmol/L Glucose (74-99) mg/dL POC Glucose (mg/dL) 312 H (70-110) mg/dL AST (14-36) U/L
[2023-02-06 13:28] LABS: VBG PH 7.21 (7.31-7.41)
--- NOTE | 2023-02-06 13:39 | XR ---
EXAMINATION TYPE: XR chest 2V DATE OF EXAM: 02/06/2023 COMPARISON: 12/04/2021 HISTORY: 22-year-old female influenza A, nausea, vomiting, diarrhea TECHNIQUE: PA and lateral views FINDINGS: The cardiomediastinal silhouette, aorta, and pulmonary vasculature are within normal limits. Lungs an d pleural spaces are clear. Dextroconvex scoliosis. IMPRESSION: No acute cardiopulmonary process. Dextroconvex scoliosis.
[2023-02-06] MEDS: OSELTAMIVIR 75 MG CAP PO SCH ×2 (14:01→20:31)
[2023-02-06 14:04] LABS: Glucose,Whole Blood 251 mg/dL (70-110)
[2023-02-06] MEDS: D5-0.45% NACL WITH KCL 20MEQ/L 1,000 ML IV SCH (14:52)
[2023-02-06 15:11] LABS: Glucose,Whole Blood 184 mg/dL (70-110)
[2023-02-06 16:07] LABS: Glucose,Whole Blood 179 mg/dL (70-110)
[2023-02-06 16:31] LABS: Glucose,Whole Blood 174 mg/dL (70-110)
[2023-02-06 17:02] LABS: African American GFR (CKD) >90 (>60 ml/min/1.73 sqM); Anion Gap 10 mmol/L; Blood Urea Nitrogen 13 mg/dL (7-17); Carbon Dioxide 24 mmol/L (22-30); Chloride 104 mmol/L (98-107); Glucose 158 mg/dL (74-99); Non-African American GFR(CKD) >90 (>60 ml/min/1.73 sqM); Potassium 4.1 mmol/L (3.5-5.1); Sodium 138 mmol/L (137-145)
[2023-02-06 17:38] LABS: Glucose,Whole Blood 128 mg/dL (70-110)
[2023-02-06] MEDS ORDERED: Phosphorus Replacement Protoco 1 EACH MISC MISCELLANE PRN (17:53)
[2023-02-06] MEDS ORDERED: INSULIN LISPRO (For Pump) 100 UNIT/ML VIAL SQ-PUMP SCH (18:00)
[2023-02-06] MEDS ORDERED: D5-0.45% NACL WITH KCL 20MEQ/L 1,000 ML IV SCH (18:05)
[2023-02-06] MEDS ORDERED: POTAS-SOD-PHOS 278-164-250 MG 1 EACH PACKET PO ONE (18:30)
[2023-02-06 20:42] LABS: Glucose,Whole Blood 119 mg/dL (70-110)
[2023-02-06] MEDS ORDERED: DULoxetine HCL 60 MG CAPSULE.DR PO SCH (21:00)
[2023-02-07 00:47] LABS: African American GFR (CKD) >90 (>60 ml/min/1.73 sqM); Anion Gap 10 mmol/L; Blood Urea Nitrogen 9 mg/dL (7-17); Calcium 7.8 mg/dL (8.4-10.2); Carbon Dioxide 22 mmol/L (22-30); Chloride 104 mmol/L (98-107); Glucose 161 mg/dL (74-99); Magnesium 1.9 mg/dL (1.6-2.3); Non-African American GFR(CKD) >90 (>60 ml/min/1.73 sqM); Phosphorus 2.7 mg/dL (2.5-4.5); Potassium 4.6 mmol/L (3.5-5.1); Sodium 136 mmol/L (137-145)
[2023-02-07] MEDS ORDERED: MAGNESIUM SULFATE-D5W PMX 1 GM in DEXTROSE/WATER 1 100ML.BAG IVPB ONE (01:00)
[2023-02-07] MEDS: D5-0.45% NACL WITH KCL 20MEQ/L 1,000 ML IV SCH (01:19)
[2023-02-07 02:10] LABS: Glucose,Whole Blood 187 mg/dL (70-110)
[2023-02-07 04:06] LABS: HCT 36.6 % (34.0-46.0); HGB 11.8 gm/dL (11.4-16.0); MCH 30.6 pg (25.0-35.0); MCHC 32.3 g/dL (31.0-37.0); MCV 94.8 fL (80.0-100.0); Platelet Count 158 k/uL (150-450); RBC 3.86 m/uL (3.80-5.40); RDW 12.6 % (11.5-15.5); WBC 5.4 k/uL (3.8-10.6)
[2023-02-07 04:22] VITALS: TEMP 98.6
[2023-02-07 04:24] LABS: African American GFR (CKD) >90 (>60 ml/min/1.73 sqM); Anion Gap 10 mmol/L; Blood Urea Nitrogen 8 mg/dL (7-17); Calcium 7.8 mg/dL (8.4-10.2); Carbon Dioxide 22 mmol/L (22-30); Chloride 103 mmol/L (98-107); Glucose 166 mg/dL (74-99); Magnesium 2.3 mg/dL (1.6-2.3); Non-African American GFR(CKD) >90 (>60 ml/min/1.73 sqM); Phosphorus 2.5 mg/dL (2.5-4.5); Potassium 4.5 mmol/L (3.5-5.1); Sodium 135 mmol/L (137-145)
[2023-02-07 06:35] LABS: Glucose,Whole Blood 200 mg/dL (70-110)
[2023-02-07] MEDS: OSELTAMIVIR 75 MG CAP PO SCH (08:45)
[2023-02-07] MEDS ORDERED: ENOXAPARIN 40 MG/0.4 ML SYRINGE SQ SCH (09:00)
[2023-02-07 09:11] VITALS: BP 120/79; PULSE 77; RESP 20
--- NOTE | 2023-02-07 10:09 | P.PN ---
Subjective Progress Note Date: 02/07/23 This is a very pleasant 22-year-old female patient with a known history of type 1 diabetes mellitus, anxiety/depression, chronic and ongoing tobacco dependence, vape user, marijuana use. The last couple of days she had been having issues with nausea vomiting, high sugars. She was diagnosed by her PCP with influenza a. She came to the emergency room this morning with similar symptoms. She required high amounts of insulin through her pump to control her blood sugars. White count 9.0. Hemoglobin 14.0. Platelets 194. Sodium 136. Potassium 4.3. Bicarbonate 13. BUN 16. Creatinine 0.63. Anion gap 21. Glucose 327. Acetone positive. She has received 2 L of fluid resuscitation. To be on D5 and half- normal saline with 20 of KCl at 150 MLS per hour. Insulin drip at 0.1 units per kilogram per hour. Continued on Tamiflu. She is seen today in the emergency department. She is currently resting on a stretcher. Still having issues with nausea, muscle aches and fatigue. Continue good O2 saturations in the high 90s on room air. She's currently afebrile. Hemodynamically stable. The patient is seen today 02/07/2023 in follow-up in the intensive care unit. She is currently resting comfortably in bed. Awake and alert in no acute distress. Feeling nearly back to her baseline. She is maintaining good O2 saturations in the 90s on room air. Chest x-ray revealed no acute pulmonary process. White count 5.4. Hemoglobin 11.8. Platelets 158. Sodium 135. Potassium 4.5. Bicarb 22. BUN 8. Creatinine 0.53. Glucose 166. Anion gap 10. Hemoglobin A1c 10.9. He has been resumed on her insulin pump. She is on Lovenox for DVT prophylaxis. Continued on Tamiflu. Nicorette gum available. Objective - Vital Signs Vital signs: Vital Signs Temp 98.6 F 02/07/23 08:00 Pulse 77 02/07/23 08:00 Resp 20 02/07/23 08:00 BP 120/79 02/07/23 08:00 Pulse Ox 99 02/07/23 08:00 FiO2 Intake & Output 02/06/23 02/07/23 02/07/23 18:59 06:59 18:59 Intake Total 237.986 870 Output Total 900 0 Balance 237.986 -30 0 Weight 68.039 kg 70.7 kg Intake: IV 600 D5-0.45% NaCl with KCl 500 20Meq/l 1,000 ml @ 50 mls /hr IV .Q20H [facility] Rx#: [id number] Magnesium Sulfate-D5w Pmx 100 1 gm In Dextrose/Water 1 100ml.bag @ 100 mls/hr IVPB ONCE ONE Rx#: [id number] Intake, IV Titration 237.986 50 Amount D5-0.45% NaCl with KCl 200 50 20Meq/l 1,000 ml @ 50 mls /hr IV .Q20H [facility] Rx#: [id number] Insulin Regular 100 unit 37.986 In Sodium Chloride 0.9% 100 ml @ 0.1 UNITS/KG/HR 6.872 mls/hr IV .[id number] [facility] Rx#:[id number] Oral 220 Output: Urine 900 0 Other: Voiding Method Toilet Toilet # Voids 1 1 - Exam GENERAL EXAM: Alert, active, frail female, on room air, comfortable in no apparent distress. HEAD: Normocephalic. EYES: Normal reaction of pupils, equal size. NOSE: Clear with pink turbinates. THROAT: No erythema or exudates. NECK: No masses, no JVD. CHEST: No chest wall deformity. LUNGS: Equal air entry with no crackles, wheeze, rhonchi or dullness. CVS: S1 and S2 normal with no audible murmur, regular rhythm. ABDOMEN: No hepatosplenomegaly, normal bowel sounds, no guarding or rigidity. SPINE: No scoliosis or deformity SKIN: No rashes CENTRAL NERVOUS SYSTEM: No focal deficits, tone is normal in all 4 extremities. EXTREMITIES: There is no peripheral edema. No clubbing, no cyanosis. Peripheral pulses are intact. - Labs CBC & Chem 7: 02/07/23 03:39 02/07/23 03:39 Labs: Abnormal Lab Results - Last 24 Hours (Table) 02/06/23 02/06/23 02/06/23 Range/Units 08:43 11:55 12:06 VBG pH (7.31-7.41) VBG HCO3 (24-28) mmol/L Sodium 136 L (137-145) mmol/L Carbon Dioxide 13 L 16 L (22-30) mmol/L Creatinine (0.52-1.04) mg/dL Glucose 327 H 296 H (74-99) mg/dL POC Glucose (mg/dL) 312 H (70-110) mg/dL Hemoglobin A1c (<=6.0) % Calcium (8.4-10.2) mg/dL Phosphorus (2.5-4.5) mg/dL AST 39 H (14-36) U/L 02/06/23 02/06/23 02/06/23 Range/Units 13:17 14:02 15:10 VBG pH 7.21 L (7.31-7.41) VBG HCO3 19 L (24-28) mmol/L Sodium (137-145) mmol/L Carbon Dioxide (22-30) mmol/L Creatinine (0.52-1.04) mg/dL Glucose (74-99) mg/dL POC Glucose (mg/dL) 251 H 184 H (70-110) mg/dL Hemoglobin A1c (<=6.0) % Calcium (8.4-10.2) mg/dL Phosphorus (2.5-4.5) mg/dL AST (14-36) U/L 02/06/23 02/06/23 02/06/23 Range/Units 16:02 16:02 16:05 VBG pH (7.31-7.41) VBG HCO3 (24-28) mmol/L Sodium (137-145) mmol/L Carbon Dioxide (22-30) mmol/L Creatinine 0.47 L (0.52-1.04) mg/dL Glucose 158 H (74-99) mg/dL POC Glucose (mg/dL) 179 H (70-110) mg/dL Hemoglobin A1c (<=6.0) % Calcium (8.4-10.2) mg/dL Phosphorus 1.5 L (2.5-4.5) mg/dL AST (14-36) U/L 02/06/23 02/06/23 02/06/23 Range/Units 16:30 17:37 20:40 VBG pH (7.31-7.41) VBG HCO3 (24-28) mmol/L Sodium (137-145) mmol/L Carbon Dioxide (22-30) mmol/L Creatinine (0.52-1.04) mg/dL Glucose (74-99) mg/dL POC Glucose (mg/dL) 174 H 128 H 119 H (70-110) mg/dL Hemoglobin A1c (<=6.0) % Calcium (8.4-10.2) mg/dL Phosphorus (2.5-4.5) mg/dL AST (14-36) U/L 02/07/23 02/07/23 02/07/23 Range/Units 00:16 02:06 03:39 VBG pH (7.31-7.41) VBG HCO3 (24-28) mmol/L Sodium 136 L (137-145) mmol/L Carbon Dioxide (22-30) mmol/L Creatinine (0.52-1.04) mg/dL Glucose 161 H (74-99) mg/dL POC Glucose (mg/dL) 187 H (70-110) mg/dL Hemoglobin A1c 10.9 H (<=6.0) % Calcium 7.8 L (8.4-10.2) mg/dL Phosphorus (2.5-4.5) mg/dL AST (14-36) U/L 02/07/23 02/07/23 Range/Units 03:39 06:34 VBG pH (7.31-7.41) VBG HCO3 (24-28) mmol/L Sodium 135 L (137-145) mmol/L Carbon Dioxide (22-30) mmol/L Creatinine (0.52-1.04) mg/dL Glucose 166 H (74-99) mg/dL POC Glucose (mg/dL) 200 H (70-110) mg/dL Hemoglobin A1c (<=6.0) % Calcium 7.8 L (8.4-10.2) mg/dL Phosphorus (2.5-4.5) mg/dL AST (14-36) U/L Assessment and Plan Assessment: Acute diabetic ketoacidosis secondary to influenza A, recovered Influenza A infection, currently on Tamiflu Diabetes mellitus, type I Chronic and ongoing tobacco dependence History of anxiety/depression Plan: Patient was seen and evaluated Labs and medications reviewed Bicarb 22, anion gap 10 glucose 200 Resumed on her insulin pump She is feeling back to her baseline She could transfer out of the ICU today Home today if cleared by medicine Should follow closely with her cable testers helper Hemoglobin A1c was 10.9 I have personally seen and examined the patient, performed the documentation and the assessment and plan as written. Number of minutes spent on the visit: 10.
--- NOTE | 2023-02-07 11:04 | P.DS ---
Providers Date of admission: 02/06/23 11:33 Expected date of discharge: 02/07/23 Attending physician: Eveline Harden MD Consults: 02/06/23 12:23 Consult Physician Routine Consulting Provider: Misha Gardner Consult Reason/Comments: ICU care Do you want consulting provider notified?: Yes Primary care physician: [facility] Hospital Course: Patient is a 22-year-old female with history of diabetes mellitus type 1 on inbsulin pump with last A1C 10.3 1 weeke ago, Nicotine dependency (vaping), and endometroisis who presented to the ED with vomiting and hyperglycemia. She had fevers and URI symptoms with hyperglycemia at home 2 days ago and was seen at [facility] and diagnosied with influenza A. She was started on Tamiflu and has take 2 doses. Initially she presented to the ER on 02/05/23 due to hyper glycemia. At that point in time she was acetone negative and did not have acidosis. She was therefore discharged home. She reports presented today with worsening symptoms. Laboratory analysis in the ER included CBC, CMP, magnesium level and acetone which was remarkable for sodium 136, carbon dioxide 13, anion gap 21, glucose 327, and acetone was positive. In the ER she was administered 1 L of normal saline and 4 mg of Zofran. Arrangements were made for admission. Patient was started on an insulin drip and admitted to ICU. Bicarb and anion gap normalized. A1c was 10.9. 02/07 Patient was seen and examined. Transitioned to her insulin pump. Reports feeling back at baseline. Would like to go home. Plans for discharge home. She does have a course of Tamiflu at home which she should continue to take. Follow up with PCP within 1-2 days and Endocrinology within 1 week of discharge. Pertinent studies include CXR, EKG. Vital signs reviewed General: no distress, appears at stated age Derm: warm, dry Eyes: EOMI, no lid lag, anicteric sclera ENT: Nose and ears atraumatic Cardiovascular: S1S2 reg, no murmur Lungs: clear to auscultation bilateral, no rhonchi, no rales, no wheeze, no accessory muscle use Ext: no gross muscle atrophy, no contractures Neuro: no focal neuro deficits Psych: Alert, oriented, appropriate affect Discharge Diagnosis: Influenza A DKA in a Type I diabetic Intractable nausea and vomiting related to above. This complex discharge took 35 minutes to complete. Patient Condition at Discharge: Stable Plan - Discharge Summary New Discharge Prescriptions: Continue DULoxetine HCL [Cymbalta] 60 mg PO HS INSULIN LISPRO (For Pump) [humaLOG (For Pump)] 0.01 units SQ-PUMP CONTINUOUS Oseltamivir [Tamiflu] 75 mg PO BID Discharge Medication List DULoxetine HCL [Cymbalta] 60 mg PO HS 02/06/23 [History] INSULIN LISPRO (For Pump) [humaLOG (For Pump)] 0.01 units SQ-PUMP CONTINUOUS 02/06/23 [History] Oseltamivir [Tamiflu] 75 mg PO BID 02/06/23 [History] Follow up Appointment(s)/Referral(s): Buzz Esposito MD [Primary Care Provider] - 1-2 days Tremaine Clay MD [REFERRING] - 1 Week Patient Instructions/Handouts: Diabetic Ketoacidosis (DC), Influenza (DC) Discharge Disposition: HOME SELF-CARE
== END 2023-02-07 11:27 | disposition home or self-care (01) | DRG 420 ==
LOC: EC 08:17 → 3SCARD 11:33 → 2SICU 15:38
PROVIDERS: ADMIT Internal Medicine; ATTEND Internal Medicine
DX: E10.10 Type 1 diabetes mellitus with ketoacidosis without coma (principal); F31.9 Bipolar disorder, unspecified; E10.40 Type 1 diabetes mellitus with diabetic neuropathy, unspecified; E10.65 Type 1 diabetes mellitus with hyperglycemia; F41.9 Anxiety disorder, unspecified; J10.00 Influenza due to other identified influenza virus with unspecified type of pneumonia; Z79.4 Long term (current) use of insulin; Z82.49 Family history of ischemic heart disease and other diseases of the circulatory system; Z96.41 Presence of insulin pump (external) (internal); F17.290 Nicotine dependence, other tobacco product, uncomplicated; N80.9 Endometriosis, unspecified
CPT/HCPCS: 36415; 71046; 80048; 80051; 80053; 82009; 82565; 82803; 82947; 83036; 83735; 84100; 84520; 85025; 85027; 96361; 96374; 99285

== ENCOUNTER 2023-10-27 17:20 | Emergency (ER) | payer OTHER ==
[2023-10-27 17:34] LABS: Glucose,Whole Blood 155 mg/dL (70-110)
[2023-10-27 17:35] LABS: Glucose,Whole Blood 159 mg/dL (70-110)
[2023-10-27 17:53] LABS: Basophils # (A) 0.1 k/uL (0-0.2); Basophils % (A) 1 %; Eosinophils % (A) 0 %; HCT 45.3 % (34.0-46.0); Lymphocytes # (A) 3.1 k/uL (1.0-4.8); Lymphocytes % (A) 22 %; MCH 30.9 pg (25.0-35.0); MCHC 33.2 g/dL (31.0-37.0); MCV 92.9 fL (80.0-100.0); Mean Platelet Volume 6.9; Monocytes # (A) 0.8 k/uL (0-1.0); Monocytes % (A) 5 %; Neutrophils % (A) 70 %; Platelet Count 364 k/uL (150-450); RBC 4.88 m/uL (3.80-5.40); RDW 11.8 % (11.5-15.5); WBC 14.2 k/uL (3.8-10.6)
--- NOTE | 2023-10-27 17:56 | ED ---
Recheck HPI - General Source: patient, RN notes reviewed Mode of arrival: ambulatory Limitations: no limitations - History of Present Illness MD Complaint: abnormal lab <Marsha Wade - Last Filed: 10/27/23 17:54> <Edward Medley - Last Filed: 10/27/23 20:41> - General Chief Complaint: Recheck/Abnormal Lab/Rx Stated Complaint: High Blood Sugar Time Seen by Provider: 10/27/23 17:45 - History of Present Illness Initial Comments: Quick Note: This is a 23-year-old female who presents to the emergency department for hyperglycemia. States that she is a type I diabetic and for the last couple of days when she wakes up her sugars around 350-400. She has been on antibiotics for the last 24 hours for a double ear infection. States that she feels like she could be going into DKA. Reports mild nausea but no vomiting. She was at [facility] and states that they tested her urine and sent her home without doing any blood work. (Marsha Wade) Dictation was produced using [employer] dictation software. please excuse any grammatical, word or spelling errors. Chief Complaint: 23-year-old female presents with malaise History of Present Illness: Patient 23-year-old type I incident dependent diabetic female she manages her diabetes with insulin pump. States that for the last few days she has been feeling malaise. States that she does feel little bit of myalgias and bodyaches. She seen at an urgent care recently diagnosed with bilateral ear infections. She states that she does have some bilateral ear pain. Denies any cough sore throat runny nose. Denies any obvious sick contacts. She is currently on amoxicillin for bilateral ear infections. Patient reports that her sugars have been running high at home with measurements in the 300s. The ROS documented in this emergency department record has been reviewed and confirmed by me. Those systems with pertinent positive or negative responses have been documented in the HPI. All other systems are other negative and/or noncontributory. (Edward Medley) - Related Data Home Medications Medication Instructions Recorded Confirmed DULoxetine HCL [Cymbalta] 60 mg PO HS 02/06/23 02/06/23 INSULIN LISPRO (For Pump) [humaLOG 0.01 units SQ-PUMP CONTINUOUS 02/06/23 02/06/23 (For Pump)] Oseltamivir [Tamiflu] 75 mg PO BID 02/06/23 02/06/23 Allergies Allergy/AdvReac Type Severity Reaction Status Date / Time No Known Allergies Allergy Verified 02/06/23 12:37 Review of Systems ROS Other: All systems not noted in ROS Statement are negative. <Marsha Wade - Last Filed: 10/27/23 17:54> ROS Other: All systems not noted in ROS Statement are negative. <Edward Medley - Last Filed: 10/27/23 20:41> ROS Statement: Those systems with pertinent positive or pertinent negative responses have been documented in the HPI. Past Medical History Past Medical History: Diabetes Mellitus Additional Past Medical History / Comment(s): IDDM type 1, pt thinks possible neuropathy bilateral feet, past HPV History of Any Multi-Drug Resistant Organisms: None Reported Past Surgical History: Adenoidectomy, Tonsillectomy Additional Past Surgical History / Comment(s): endometreosis with surgery 2021, D&C to remove IUD 2021 Past Anesthesia/Blood Transfusion Reactions: No Reported Reaction Past Psychological History: Anxiety, Bipolar, Depression Smoking Status: Former smoker, Vaper - Past Family History Mother Family Medical History: No Reported History Additional Family Medical History / Comment(s): migraines Father Family Medical History: Hypertension Additional Family Medical History / Comment(s): Father is healthy <Marsha Wade - Last Filed: 10/27/23 17:54> General Exam Limitations: no limitations <Marsha Wade - Last Filed: 10/27/23 17:54> <Edward Medley - Last Filed: 10/27/23 20:41> - General Exam Comments Initial Comments: Visual Physical Exam Vital signs reviewed General: Well-appearing, nontoxic, no acute distress. Head: Normocephalic, atraumatic Eyes: PERRLA, EOMI ENT: Airway patent Chest: Nonlabored breathing Skin: No visual rash, normal skin tone Neuro: Alert and oriented 3 Musculoskeletal: No gross abnormalities (Marsha Wade) PHYSICAL EXAM: General Impression: Alert and oriented x3, not in acute distress HEENT: Normocephalic atraumatic, extra-ocular movements intact, pupils equal and reactive to light bilaterally, mucous membranes moist. Cardiovascular: Heart regular rate and rhythm Chest: Able to complete full sentences, no retractions, no tachypnea Abdomen: abdomen soft, non-tender, non-distended, no organomegaly Musculoskeletal: Pulses present and equal in all extremities, no peripheral edema Motor: no focal deficits noted Neurological: CN II-XII grossly intact, no focal motor or sensory deficits noted Skin: Intact with no visualized rashes Psych: Normal affect and mood (Edward Medley) Course Vital Signs 10/27/23 17:28 Temperature 98.7 F Pulse Rate 105 H Respiratory 20 Rate Blood Pressure 133/89 O2 Sat by Pulse 98 Oximetry Medical Decision Making - Lab Data Result diagrams: 10/27/23 17:30 <Marsha Wade - Last Filed: 10/27/23 17:54> - Lab Data Result diagrams: 10/27/23 17:30 10/27/23 17:30 <Edward Medley - Last Filed: 10/27/23 20:41> - Medical Decision Making I performed the QuickNote portion of this chart. Signed Marsha Wade PA-C. (Marsha Wade) Was pt. sent in by a medical professional or institution ([facility], HOME CARE CONSULTANT, urgent care, hospital, or jail...) When possible be specific @ -[No] Did you speak to anyone other than the patient for history (EMS, parent, family, police, friend...)? What history was obtained from this source @ -[No] Did you review nursing and triage notes (agree or disagree)? Why? @ -[I reviewed and agree with nursing and triage notes] Were old charts reviewed (outside hosp., previous admission, EMS record, old EKG, old radiological studies, urgent care reports/EKG's, jail records)? Report findings @ -[No old charts were reviewed] Differential Diagnosis (chest pain, altered mental status, abdominal pain women, abdominal pain men, vaginal bleeding, musculoskeletal, weakness, fever, dyspnea, syncope, headache, dizziness, GI bleed, back pain, seizure, CVA, palpatations, mental health)? @ -Differential Weakness: Hypoglycemia, shock, sepsis, hyponatremia, anemia, infection, NM, ETOH, adverse medicine reaction, overdose, stroke, this is not meant to be an all-inclusive list. EKG interpreted by me (3pts min.). @ -[None done] X-rays interpreted by me (1pt min.). @ -[None done] CT interpreted by me (1pt min.). @ -[None done] U/S interpreted by me (1pt. min.). @ -[None done] What testing was considered but not performed or refused? (CT, X-rays, U/S, labs)? Why? @ -[None] What meds were considered but not given or refused? Why? @ -[None] Was smoking cessation discussed for >3mins.? @ -[No] Were there social determinants of health that impacted care today? How? (Homelessness, low income, unemployed, alcoholism, drug addiction, transportation, low edu. Level, literacy, decrease access to med. care, senior living, rehab)? @ -[No] Was there de-escalation of care discussed even if they declined (Discuss DNR or withdrawal of care, Hospice)? DNR status @ -[No] What co-morbidities impacted this encounter? (DM, HTN, Smoking, COPD, CAD, Cancer, CVA, ARF, Chemo, Hep., AIDS, mental health diagnosis, sleep apnea, morbid obesity)? @ -Type I diabetic Was patient admitted / discharged? Hospital course, mention meds given and route, prescriptions, significant lab abnormalities, going to OR and other pertinent info. @ -23-year-old female with type 1 diabetes presents to the ER for malaise. Patient does not have any localizing symptoms. Vital signs are stable. Laboratory evaluation obtained. Mild leukocytosis 14.2, rest of labs within acceptable limits. No UTI. No acidosis. Mild stress leukocytosis of 14.2. Patient has benign physical examination. She is seen and evaluated in [facility] due to no beds being available secondary to ER holds. Patient is given option to be discharged. She would like to get some IV fluids prior to discharge. Patient well-appearing. She is told to follow-up closely with primary care doctor. Did you discuss the management of the patient with other professionals (professionals i.e. , PA, HOME CARE CONSULTANT, lab, RT, psych nurse, psychologist social, manager technical services, teacher, truant officer, case work aide)? Give summary @ -[No] Was critical care preformed (if so, how long)? @ -[No] Undiagnosed new problem with uncertain prognosis? @ -[No] Drug Therapy requiring intensive monitoring for toxicity (Heparin, Nitro, Insulin, Cardizem)? @ -[No] Were any procedures done? @ -[No] Diagnosis/symptom? Acute, or Chronic, or Acute on Chronic? Uncomplicated (without systemic symptoms) or Complicated (systemic symptoms)? @ -Malaise, no high risk features Side effects of treatment? @ -[No] Exacerbation, Progression, or Severe Exacerbation? @ -[No] Poses a threat to life or bodily function? How? (Chest pain, USA, NM, pneumonia, PE, COPD, DKA, ARF, appy, cholecystitis, CVA, Diverticulitis, Homicidal, Suicidal, threat to staff... and all critical care pts) @ -[No] (Edward Medley) - Lab Data Lab Results 10/27/23 10/27/23 10/27/23 Range/Units 17:30 17:30 17:33 WBC 14.2 H (3.8-10.6) k/uL RBC 4.88 (3.80-5.40) m/uL Hgb 15.0 (11.4-16.0) gm/dL Hct 45.3 (34.0-46.0) % MCV 92.9 (80.0-100.0) fL MCH 30.9 (25.0-35.0) pg MCHC 33.2 (31.0-37.0) g/dL RDW 11.8 (11.5-15.5) % Plt Count 364 (150-450) k/uL MPV 6.9 Neutrophils % 70 % Lymphocytes % 22 % Monocytes % 5 % Eosinophils % 0 % Basophils % 1 % Neutrophils # 10.0 H (1.3-7.7) k/uL Lymphocytes # 3.1 (1.0-4.8) k/uL Monocytes # 0.8 (0-1.0) k/uL Eosinophils # 0.0 (0-0.7) k/uL Basophils # 0.1 (0-0.2) k/uL Sodium 139 (137-145) mmol/L Potassium 4.6 (3.5-5.1) mmol/L Chloride 101 (98-107) mmol/L Carbon Dioxide 27 (22-30) mmol/L Anion Gap 11 mmol/L BUN 15 (7-17) mg/dL Creatinine 0.61 (0.52-1.04) mg/dL Est GFR (CKD-EPI)AfAm >90 (>60 ml/min/1.73 sqM) Est GFR (CKD-EPI)NonAf >90 (>60 ml/min/1.73 sqM) Glucose 152 H (74-99) mg/dL POC Glucose (mg/dL) 155 H (70-110) mg/dL POC Glu Business Technology Teacher ID Mariano, [place] Calcium 10.4 H (8.4-10.2) mg/dL Phosphorus 3.1 (2.5-4.5) mg/dL Magnesium 1.8 (1.6-2.3) mg/dL Total Bilirubin 1.3 (0.2-1.3) mg/dL AST 24 (14-36) U/L ALT 14 (4-34) U/L Alkaline Phosphatase 76 (38-126) U/L Total Protein 8.0 (6.3-8.2) g/dL Albumin 5.1 H (3.5-5.0) g/dL Urine Color Urine Appearance (Clear) Urine pH (5.0-8.0) Ur Specific [place] (1.001-1.035) Urine Protein (Negative) Urine Glucose (UA) (Negative) Urine Ketones (Negative) Urine Blood (Negative) Urine Nitrite (Negative) Urine Bilirubin (Negative) Urine Urobilinogen (<2.0) mg/dL Ur Leukocyte Esterase (Negative) Urine WBC (0-5) /hpf Ur Squamous Epith Cells (0-4) /hpf Amorphous Sediment (None) /hpf Urine Bacteria (None) /hpf Urine Mucus (None) /hpf Urine HCG, Qual (Not Detectd) Acetone, Qual Negative (Negative) 10/27/23 10/27/23 10/27/23 Range/Units 17:34 17:45 17:45 WBC (3.8-10.6) k/uL RBC (3.80-5.40) m/uL Hgb (11.4-16.0) gm/dL Hct (34.0-46.0) % MCV (80.0-100.0) fL MCH (25.0-35.0) pg MCHC (31.0-37.0) g/dL RDW (11.5-15.5) % Plt Count (150-450) k/uL MPV Neutrophils % % Lymphocytes % % Monocytes % % Eosinophils % % Basophils % % Neutrophils # (1.3-7.7) k/uL Lymphocytes # (1.0-4.8) k/uL Monocytes # (0-1.0) k/uL Eosinophils # (0-0.7) k/uL Basophils # (0-0.2) k/uL Sodium (137-145) mmol/L Potassium (3.5-5.1) mmol/L Chloride (98-107) mmol/L Carbon Dioxide (22-30) mmol/L Anion Gap mmol/L BUN (7-17) mg/dL Creatinine (0.52-1.04) mg/dL Est GFR (CKD-EPI)AfAm (>60 ml/min/1.73 sqM) Est GFR (CKD-EPI)NonAf (>60 ml/min/1.73 sqM) Glucose (74-99) mg/dL POC Glucose (mg/dL) 159 H (70-110) mg/dL POC Glu Business Technology Teacher ID Mariano, [place] Calcium (8.4-10.2) mg/dL Phosphorus (2.5-4.5) mg/dL Magnesium (1.6-2.3) mg/dL Total Bilirubin (0.2-1.3) mg/dL AST (14-36) U/L ALT (4-34) U/L Alkaline Phosphatase (38-126) U/L Total Protein (6.3-8.2) g/dL Albumin (3.5-5.0) g/dL Urine Color Yellow Urine Appearance Clear (Clear) Urine pH 7.0 (5.0-8.0) Ur Specific [place] 1.029 (1.001-1.035) Urine Protein 1+ H (Negative) Urine Glucose (UA) Trace H (Negative) Urine Ketones 3+ H (Negative) Urine Blood Negative (Negative) Urine Nitrite Negative (Negative) Urine Bilirubin Negative (Negative) Urine Urobilinogen <2.0 (<2.0) mg/dL Ur Leukocyte Esterase Negative (Negative) Urine WBC 2 (0-5) /hpf Ur Squamous Epith Cells 2 (0-4) /hpf Amorphous Sediment Rare H (None) /hpf Urine Bacteria Occasional H (None) /hpf Urine Mucus Many H (None) /hpf Urine HCG, Qual Not Detected (Not Detectd) Acetone, Qual (Negative) Disposition <Marsha Wade - Last Filed: 10/27/23 17:54> Is patient prescribed a controlled substance at d/c from ED?: No Time of Disposition: 20:41 <Edward Medley - Last Filed: 10/27/23 20:41> Clinical Impression: Malaise Disposition: HOME SELF-CARE Condition: Good Referrals: Buzz Esposito MD [Primary Care Provider] - 1-2 days
[2023-10-27 18:09] LABS: Amorphous Sediment,Urine Rare /hpf; Appearance,Urine Clear (Clear); Bacteria,Urine Occasional /hpf; Bilirubin,Urine Negative (Negative); Blood,Urine Negative (Negative); Color,Urine Yellow; Glucose,Urine (UA) Trace (Negative); Ketones,Urine 3+ (Negative); Leukocyte Esterase,Urine Negative (Negative); Mucus,Urine Many /hpf; Nitrite,Urine Negative (Negative); Protein,Urine 1+ (Negative); Specific Gravity,Urine 1.029 (1.001-1.035); Squamous Epithelial Cell,Urine 2 /hpf (0-4); Urobilinogen,Urine <2.0 mg/dL (<2.0); WBC,Urine 2 /hpf (0-5)
[2023-10-27 18:22] LABS: ALT 14 U/L (4-34); AST 24 U/L (14-36); African American GFR (CKD) >90 (>60 ml/min/1.73 sqM); Albumin 5.1 g/dL (3.5-5.0); Alkaline Phosphatase 76 U/L (38-126); Anion Gap 11 mmol/L; Blood Urea Nitrogen 15 mg/dL (7-17); Calcium 10.4 mg/dL (8.4-10.2); Carbon Dioxide 27 mmol/L (22-30); Chloride 101 mmol/L (98-107); Glucose 152 mg/dL (74-99); Magnesium 1.8 mg/dL (1.6-2.3); Non-African American GFR(CKD) >90 (>60 ml/min/1.73 sqM); Phosphorus 3.1 mg/dL (2.5-4.5); Potassium 4.6 mmol/L (3.5-5.1); Sodium 139 mmol/L (137-145); Total Bilirubin 1.3 mg/dL (0.2-1.3)
[2023-10-27] MEDS: SODIUM CHLORIDE 0.9% 1,000 ML IV STA (20:48)
[2023-10-27 21:30] VITALS: BP 106/73; PULSE 90; RESP 16; TEMP 98.2
== END 2023-10-27 21:34 | disposition home or self-care (01) ==
LOC: EC 17:20
CPT/HCPCS: 36415; 80053; 81001; 81025; 82009; 83735; 84100; 85025; 99285